=== PATIENT | female | born 1965 | race Caucasian/White ===

== ENCOUNTER 2019-11-19 10:52 | Outpatient (CLI) | payer OTHER, SELFPAY ==
[2019-11-19 11:09] LABS: Basophils Absolute Auto 0.03 K/mm3 (0.00-0.10); Basophils Percent Auto 0.4 % (0.0-1.0); Eosinophils Absolute Auto 0.24 K/mm3 (0.02-0.50); Eosinophils Percent Auto 3.5 % (1.0-6.0); Hematocrit 37.8 % (35.0-49.0); Hemoglobin 12.6 g/dL (12.0-15.0); Immature Granulocyte Absolute 0.03 K/mm3 (0.00-0.00); Immature Granulocyte Percent A 0.4 % (0.0-0.0); Lymphocytes Absolute Auto 2.38 K/mm3 (1.10-4.50); Lymphocytes Percent Auto 34.3 % (18.0-42.0); Mean Corpuscular HGB Conc 33.3 g/dL (32.0-36.0); Mean Corpuscular Hemoglobin 29.4 pg (27.0-31.0); Mean Corpuscular Volume 88.1 fL (78.0-102.0); Mean Platelet Volume 9.3 fl (9.2-11.8); Monocytes Absolute Auto 0.68 K/mm3 (0.10-0.90); Monocytes Percent Auto 9.8 % (2.0-11.0); Neutrophils Absolute Auto 3.6 K/mm3 (1.7-7.2); Neutrophils Percent Auto 51.6 % (50.0-70.0); Platelet Count Result 276 K/mm3 (150-420); Red Blood Count 4.29 M/mm3 (4.20-5.40); Red Cell Distribution Width 11.9 % (11.6-14.4); White Blood Count 6.9 K/mm3 (4.8-10.8)
[2019-11-19 12:55] LABS: Alanine Aminotransferase 17 U/L (14-59); Albumin Level 3.8 g/dL (3.4-5.0); Alkaline Phosphatase 106 U/L (46-116); Anion Gap 12.1 mmol/L (7-16); Aspartate Amino Transferase 17 U/L (15-37); Bilirubin,Total 0.2 mg/dL (0.00-1.00); Blood Urea Nitrogen 10 mg/dL (7-18); Calcium 9.5 mg/dL (8.5-10.1); Carbon Dioxide 30 mmol/L (21-32); Chloride 104 mmol/L (98-108); Cholesterol 204 mg/dL (0-200); Estimated Glomerular Filt Rate > 60; Glucose 91 mg/dL (70-99); HDL Direct 64 mg/dL (40-60); LDL Cholesterol Calculated 129 mg/dL (<130); Osmolality Calculated 293 mOsm/kg (285-295); Potassium 4.1 mmol/L (3.5-5.1); Sodium 142 mmol/L (136-145); Total Protein 7.4 g/dL (6.4-8.2); Triglycerides 56 mg/dL (0-150); Vitamin B12 539 pg/mL (193-986)
[2019-11-22 17:30] LABS: Vitamin D 25 Hydroxy 48 ng/mL (30-100)
== END 2019-11-19 10:53 | disposition home or self-care (01) ==
LOC: CHSLAB 10:58
DX: E53.8 Deficiency of other specified B group vitamins (principal); D55.9 Anemia due to enzyme disorder, unspecified; Z00.00 Encounter for general adult medical examination without abnormal findings
CPT/HCPCS: 36415; 80053; 80061; 82306; 82607; 84443; 85025

== ENCOUNTER 2022-01-21 16:42 | Emergency (ER) | payer OTHER, SELFPAY ==
[2022-01-21 16:49] VITALS: BP 136/81; PULSE 78; RESP 16; TEMP 36.8; O2SAT 98
[2022-01-21 16:55] VITALS: BP 136/81; PULSE 78; RESP 16; TEMP 36.8; O2SAT 98
--- NOTE | 2022-01-21 17:18 | ED.URI ---
HPI - URI/Sore Throat General Chief Complaint: Upper Respiratory Infection Stated Complaint: CHEST CONGESTION Time Seen by Provider: 01/21/22 17:09 Source: patient and RN notes reviewed Mode of arrival: ambulatory Limitations: no limitations History of Present Illness HPI Narrative: Patient presents today with a 1 week history of cough, chest congestion, shortness of breath with exertion. She reports she is having an asthma exacerbation. Denies any additional symptoms. Sputum has been clear to white. She has been using her nebulizer, Mucinex, Singulair, Yolis. Denies fever. MD elicited complaint: cough Related Data Home Medications Medication Instructions Recorded Confirmed fluticasone propion-salmeterol INHALATION 01/21/22 [Wixela Inhub] glatiramer [Copaxone] mg SUBCUT 01/21/22 modafinil mg 01/21/22 montelukast mg 01/21/22 Allergies Allergy/AdvReac Type Severity Reaction Status Date / Time hydrocodone AdvReac Severe N/V Verified 09/28/19 16:14 erythromycin base AdvReac Unknown DIARRHEA Verified 09/28/19 16:14 Review of Systems Review of Systems: CONSTITUTIONAL: Denies body aches, fever, chills, or sweats. EYES: Denies visual changes, redness, or discharge. ENT: Denies rhinorrhea, congestion, sore throat, or otalgia. CARDIOVASCULAR: Denies chest pain, palpitations, or edema. RESPIRATORY: + Cough, shortness of breath with exertion, chest congestion GASTROINTESTINAL: Denies abdominal pain, nausea, vomiting, or diarrhea. GENITOURINARY: Denies dysuria or hematuria. SKIN: Denies rash, itching, or wounds. MUSCULOSKELETAL: Denies back pain, joint pain, or myalgia. NEUROLOGIC: Denies headache, numbness, tingling, or weakness. PSYCH: Denies depression or anxiety. [facility] Past Medical History Medical History (Updated 01/21/22 @ 17:22 by Jenny Jacobo, WASH DRILLER, ) Asthma Multiple sclerosis Comments At time of signature, I have reviewed and agree with nursing past medical, surgical, social and family history unless otherwise noted. Please see nursing chart for further information. There is no relevant family history pertinent to the presenting complaint Exam Narrative: GENERAL: Well-appearing, well-nourished, and in no acute distress. HEAD: Normocephalic, atraumatic. EYES: EOMI. No redness or drainage. Conjunctivae normal. ENT: Mucous membranes pink and moist. NECK: Normal AROM. CHEST: No respiratory distress. Expiratory wheezes in the left upper and lower lobe, otherwise clear. HEART: Regular rate and rhythm. No murmur appreciated. Normal peripheral pulses. EXTREMITIES: Normal range of motion. No edema. SKIN: Warm, dry, no rash. Capillary refill normal. Normal skin turgor. NEURO: No focal deficits. Alert and oriented x3. Gait steady. PSYCH: Normal affect. No signs of depression or anxiety. Course Course Level of Care: Express Care Visit Vital Signs Vital signs: Vital Signs Temperature 98.2 F 01/21/22 16:49 Pulse Rate 78 01/21/22 16:49 Respiratory Rate 16 01/21/22 16:49 Blood Pressure 136/81 01/21/22 16:49 Pulse Oximetry 98 01/21/22 16:49 Temperature 98.2 F 01/21/22 16:55 Pulse Rate 78 01/21/22 16:55 Respiratory Rate 16 01/21/22 16:55 Blood Pressure 136/81 01/21/22 16:55 Pulse Oximetry 98 01/21/22 16:55 Reviewed. Pt has been instructed to follow up with her PCP regarding her elevated blood pressure today. MDM - URI/Sore Throat Differential Diagnosis Differential diagnosis: Likely upper respiratory infection, bronchitis and other (Asthma exacerbation, pneumonia) Critical Care Time Critical Care Time Critical Care Time: No Discharge Plan Discharge Clinical Impression: Asthma exacerbation Qualifiers: Asthma severity: unspecified severity Asthma persistence: unspecified Qualified Code(s): J45.901 - Unspecified asthma with (acute) exacerbation Patient Disposition: Home, Self-Care Condition: Stable Instructions: Asthma (DC) Addition
== END 2022-01-21 17:28 | disposition home or self-care (01) ==
PROVIDERS: Emergency Provider Nurse Practitioner; PCP Nurse Practitioner Family
DX: J45.901 Unspecified asthma with (acute) exacerbation (principal); G35 Multiple sclerosis
CPT/HCPCS: 99213; G0463

== ENCOUNTER 2022-10-03 00:27 | Day surgery (SDC) | payer OTHER, SELFPAY ==
[2022-09-25 08:12] VITALS: BMI 31.4
[2022-10-03 07:41] VITALS: BP 135/74; PULSE 77; RESP 16; TEMP 36.2; O2SAT 98
[2022-10-03] MEDS: LACTATED RINGERS 1,000 ML 150 ML IV CONT (07:45)
--- NOTE | 2022-10-03 07:59 | PM.HPGS ---
History of Present Illness History of Present Illness Consent: Risks, benefits, and alternatives have been discussed and questions answered. Patient agrees to proceed with procedure. Chief complaint: neoplasm screening and hx of colon polyps Narrative: Edith Calloway is a 56 year old female Presents for screening colonoscopy. Patient's current weight appetite and bowel movements are normal. Patient denies abdominal pain. She has had no bleeding. Previous colonoscopy 2016 revealed a benign hyperplastic colon polyp. Patient presents today for neoplasia screening. Patient's grandfather apparently had colon cancer. There are no first-degree relatives with polyps or cancer. Review of Systems Review of Systems: Review of systems noncontributory. [facility] Past Medical History Medical History (Updated 10/03/22 @ 08:00 by Jon Burroughs MD) Asthma Multiple sclerosis Social History Social History Smoking status: Never smoker Alcohol intake: never Substance use type: does not use Living arrangements: with family Spiritual care concerns: No Meds Home Medications and Allergies Home Medications Medication Instructions Recorded Confirmed Type fluticasone 250 mcg-salmeterol 50 1 inh inhalation BID 01/21/22 10/03/22 History mcg/dose blistr powdr for inhalation (Wixela Inhub) glatiramer 40 mg/mL subcutaneous 40 mg subcut 3XW 01/21/22 10/03/22 History syringe (Copaxone) modafinil 200 mg tablet 200 mg PO BID 01/21/22 10/03/22 History montelukast 10 mg tablet 10 mg PO DAILY 01/21/22 10/03/22 History fexofenadine 180 mg tablet 180 mg PO DAILY 09/25/22 10/03/22 History ropinirole 0.25 mg tablet 0.25 mg PO HS PRN other 09/25/22 10/03/22 History Allergies Allergy/AdvReac Type Severity Reaction Status Date / Time hydrocodone AdvReac Severe N/V Verified 10/03/22 07:40 erythromycin base AdvReac Unknown DIARRHEA Verified 10/03/22 07:40 Vital Signs Vital Signs - 24 hr 10/03/22 07:41 Temperature 97.1 F L Pulse Rate 77 Respiratory Rate 16 Blood Pressure 135/74 Pulse Oximetry 98 Oxygen Delivery Room Air Exam Narrative: Physical exam reveals patient to be alert. Vital signs stable. HEENT exam is unremarkable. Patient is anicteric. Lungs are clear to auscultation and percussion. Heart is without murmur or extra sounds. Abdomen bowel sounds are present soft nontender with no organomegaly. Digital external rectal exam is normal. Assessment and Plan Assessment and plan (1) Encounter for screening colonoscopy: Code(s): Z12.11 - Encounter for screening for malignant neoplasm of colon Status: Acute Assessment and Plan: Patient presents today for screening colonoscopy. Appears to be at average risk for colon polyps. Further recommendations may be given after endoscopy.
--- NOTE | 2022-10-03 08:16 | WPDANESEPPF ---
Anes - Initial Pre Proc Eval Procedure: Operation Date: 10/03/22 08:30 Proposed Procedures p Screening Colonoscopy - Jon Burroughs MD Date/Time: 10/03/22 08:16 Surgeon: Jon Burroughs MD Pre Op Diagnosis: neoplasm screening and hx of colon polyps Patient Data Age: 56 Gender: F Height: 1.68 m Weight: 91.1 kg Last Vital Signs Temp 97.1 F L 10/03/22 07:41 Pulse 77 10/03/22 07:41 Resp 16 10/03/22 07:41 BP 135/74 10/03/22 07:41 Pulse Ox 98 10/03/22 07:41 O2 Del Method Room Air 10/03/22 07:41 Allergies Allergy/AdvReac Type Severity Reaction Status Date / Time hydrocodone AdvReac Severe N/V Verified 10/03/22 07:40 erythromycin base AdvReac Unknown DIARRHEA Verified 10/03/22 07:40 Home Medications Medication Instructions Recorded Confirmed Type fluticasone 250 mcg-salmeterol 50 1 inh inhalation BID 01/21/22 10/03/22 History mcg/dose blistr powdr for inhalation (Wixela Inhub) glatiramer 40 mg/mL subcutaneous 40 mg subcut 3XW 01/21/22 10/03/22 History syringe (Copaxone) modafinil 200 mg tablet 200 mg PO BID 01/21/22 10/03/22 History montelukast 10 mg tablet 10 mg PO DAILY 01/21/22 10/03/22 History fexofenadine 180 mg tablet 180 mg PO DAILY 09/25/22 10/03/22 History ropinirole 0.25 mg tablet 0.25 mg PO HS PRN other 09/25/22 10/03/22 History Patient hx anesthesia problems: none Family hx anesthesia problems: none Results Review: All pre-operative results and documents have been reviewed as part of the pre-operative evaluation. [facility] Past Medical History Medical History (Updated 10/03/22 @ 08:00 by Jon Burroughs MD) Asthma Multiple sclerosis Social History Social History Smoking status: Never smoker Alcohol intake: never Substance use type: does not use Living arrangements: with family Spiritual care concerns: No Anes - Eval Final PreProcedure Day of Procedure 10/03/22 08:16 Patient weight: obese Heart: regular rate and rhythm Lungs: clear to auscultation Airway: Mallampati scale class II Neurological: alert and oriented Last oral intake: >/= 8 hours ASA classification: III Emergent: no Anesthetic plan: proceed Anesthesia type and monitoring: general GIVS and standard monitoring Results Review: All pre-operative results and documents have been reviewed as part of the pre-operative evaluation. Informed Consent: The patient's anesthetic plan and its attendant risks and benefits were discussed with the patient/family/POA. Questions were solicited and answers provided to the satisfaction of the patient/family/POA.
[2022-10-03 08:50] VITALS: BP 125/76; PULSE 76; RESP 21; O2SAT 97
[2022-10-03 09:01] VITALS: BP 117/81; PULSE 74; RESP 16; O2SAT 100
== END 2022-10-03 09:12 | disposition home or self-care (01) ==
PROVIDERS: PCP Nurse Practitioner Family; Visit Provider Internal Medicine Gastroenterology
PROC: 0DJD8ZZ Inspection of Lower Intestinal Tract, Via Natural or Artificial Opening Endoscopic (ICD-10-PCS; CPT 45378; principal; 2022-10-03 08:30)
DX: Z12.11 Encounter for screening for malignant neoplasm of colon (principal); Z86.010 Personal history of colon polyps; J45.909 Unspecified asthma, uncomplicated; G35 Multiple sclerosis; K64.8 Other hemorrhoids
CPT/HCPCS: 45378; J2704; J7120

== ENCOUNTER 2022-10-18 07:34 | Outpatient (CLI) | payer OTHER, SELFPAY ==
--- NOTE | ~2022-10-18 | MM_ITS ---
EXAMINATION: MM screening javed BI w lee HISTORY: Screening mammogram TECHNIQUE: Craniocaudal and mediolateral oblique 3-D tomosynthesis images were obtained and synthetic 2-D images were generated. CAD analysis was submitted and interpreted. COMPARISON: 06/05/2016 bilateral screening mammogram BREAST PARENCHYMAL COMPOSITION: There are scattered areas of fibroglandular density. FINDINGS: There is a new subtle cluster of grouped microcalcifications in the posterior upper .outer left breast. Diagnostic left mammogram with magnification views and targeted left breast ultrasound a re recommended. Otherwise there is no evidence of suspicious mass, calcification, or architectural distortion to sugg est malignancy in either breast. There has been no other suspicious interval change. IMPRESSION: 1. Subtle new grouped microcalcifications in posterior upper outer left breast 2. Diagnostic left mammogram with magnification views and targeted left breast ultrasound are recomme nded BI-RADS Category 0: Incomplete: Needs additional imaging evaluation. Reviewed, dictated and finalized at location A. CLOSER MECHANIC IMPRESSION: 1. Subtle new grouped microcalcifications in posterior upper outer left breast 2. Diagnostic left mammogram with magnification views and targeted left breast ultrasound are recommended BI-RADS Category 0: Incomplete: Needs additional imaging evaluation.
[2022-10-18 08:48] LABS: Basophils Percent Auto 0.3 % (0.2-1.2); Eosinophils Absolute Auto 0.3 K/mm3 (0-0.3); Eosinophils Percent Auto 4.8 % (0-4.4); Hematocrit 38.5 % (37.0-47.0); Immature Granulocyte Absolute 0.05 K/mm3 (0.00-0.031); Immature Granulocyte Percent A 0.7 % (0-0.5); Lymphocytes Absolute Auto 2.18 K/mm3 (0.9-3.2); Lymphocytes Percent Auto 32.5 % (18.3-44.2); Mean Corpuscular HGB Conc 31.2 g/dl (32-36); Mean Corpuscular Hemoglobin 28.4 pg (26-34); Mean Corpuscular Volume 91.2 fl (80-100); Mean Platelet Volume 9.2 fl (7.4-10.4); Monocytes Absolute Auto 0.7 K/mm3 (0.1-0.6); Monocytes Percent Auto 10.6 % (2.6-8.5); Neutrophils Absolute Auto 3.4 K/mm3 (1.3-6.7); Neutrophils Percent Auto 51.1 % (45.5-73.1); Platelet Count Result 246 k/mm3 (150-375); Red Blood Count 4.22 M/mm3 (4.2-5.4); Red Cell Distribution Width 12.3 % (11.5-14.5); White Blood Count 6.7 K/mm3 (4.5-10.0)
[2022-10-18 09:02] LABS: Alanine Aminotransferase 15 U/L (6-35); Albumin Level 4.2 g/dL (3.5-5.1); Alkaline Phosphatase 114 U/L (38-126); Anion Gap 6 mmol/L (8-16); Aspartate Amino Transferase 26 U/L (14-36); Bilirubin,Total 0.3 mg/dL (0.2-1.3); Blood Urea Nitrogen 17 mg/dL (7-17); Calcium 8.7 mg/dL (8.4-10.2); Carbon Dioxide 31 mmol/L (22-30); Chloride 103 mmol/L (98-107); Cholesterol 220 mg/dL (0-200); Estimated Glomerular Filt Rate > 60; Glucose 103 mg/dL (65-110); HDL Direct 66 mg/dL; Potassium 3.9 mmol/L (3.4-5.0); Sodium 140 mmol/L (137-145); Triglycerides 65 mg/dL (<150)
[2022-10-18 09:13] LABS: LDL Cholesterol Direct 109 mg/dL
== END 2022-10-18 07:35 | disposition home or self-care (01) ==
PROVIDERS: PCP Nurse Practitioner Family; Visit Provider Nurse Practitioner Family
DX: Z12.31 Encounter for screening mammogram for malignant neoplasm of breast (principal); Z13.220 Encounter for screening for lipoid disorders; Z00.00 Encounter for general adult medical examination without abnormal findings; Z13.0 Encounter for screening for diseases of the blood and blood-forming organs and certain disorders involving the immune mechanism; E53.8 Deficiency of other specified B group vitamins; R92.8 Other abnormal and inconclusive findings on diagnostic imaging of breast
CPT/HCPCS: 36415; 77063; 77067; 80053; 80061; 82607; 85025

== ENCOUNTER 2022-12-04 11:33 | Outpatient (CLI) | payer OTHER, SELFPAY ==
--- NOTE | ~2022-12-04 | MMUS_ITS ---
EXAMINATION: MM diagnostic javed LT w lee, US breast LT limited HISTORY: Solitary grouped microcalcifications in posterior upper outer left breast on 10/18/2022 scre ening mammogram TECHNIQUE: Additional 3-D tomosynthesis images of the left breast were performed and synthetic 2-D im ages were generated. CAD analysis was submitted and interpreted. High resolution upper outer quadrant left breast ultrasound was performed. COMPARISON: 10/18/2022 bilateral screening mammogram BREAST PARENCHYMAL COMPOSITION: There are scattered areas of fibroglandular density. FINDINGS: MAMMOGRAPHIC FINDINGS: Scattered microcalcifications are noted, without any definite suspicious malignant features. 6 month follow-up diagnostic left mammogram with magnification views is recommended. ULTRASOUND: . At the subareolar area at 3:00 there is an irregular hypoechoic mass with angular margins and antip arallel configuration, measuring up to 7.8 x 4.5 x 6.1 mm. No internal vascularity or posterior shado wing is noted. However, due to the irregular angular margins and antiparallel orientation, ultrasound -guided biopsy is indicated. No other suspicious abnormality is detected in the upper outer quadrant IMPRESSION: 1. Suspicious irregular angular hypoechoic antiparallel up to 7.8 mm mass in subareolar 3:00 location 2. Ultrasound-guided biopsy is recommended at 3:00 subareolar lesion 3. Probably benign microcalcifications 4. 6 month diagnostic left mammogram follow up is recommended. BI-RADS category 4, suspicious findings. Dr. Pierce telephoned the report and ultrasound-guided biopsy recommendation of the 3:00 left subareola r lesion, as well as recommendation for 6 month diagnostic left mammogram follow up with magnificatio n views, on December 04, 2022 at 1500 hours to SERENA Mon[place] Reviewed, dictated and finalized at location A. OPERATOR IMPRESSION: 1. Suspicious irregular angular hypoechoic antiparallel up to 7.8 mm mass in kwan bareolar 3:00 location 2. Ultrasound-guided biopsy is recommended at 3:00 subareolar lesion 3. Probably benign microcalcifications 4. 6 month diagnostic left mammogram follow up is recommended. BI-RADS category 4, suspicious findings. Dr. Pierce telephoned the report and ultrasound-guided biopsy recommendation of t he 3:00 left subareolar lesion, as well as recommendation for 6 month diagnosti c left mammogram follow up with magnification views, on December 04, 2022 at 15 00 hours to SERENA Monaco IMPRESSION: 1. Suspicious irregular angular hypoechoic antiparallel up to 7.8 mm mass in kwan bareolar 3:00 location 2. Ultrasound-guided biopsy is recommended at 3:00 subareolar lesion 3. Probably benign microcalcifications 4. 6 month diagnostic left mammogram follow up is recommended. BI-RADS category 4, suspicious findings. Dr. Pierce telephoned the report and ultrasound-guided biopsy recommendation of t he 3:00 left subareolar lesion, as well as recommendation for 6 month diagnosti c left mammogram follow up with magnification views, on December 04, 2022 at 15 00 hours to Jacinda Yoli
== END 2022-12-04 11:34 | disposition home or self-care (01) ==
PROVIDERS: PCP Nurse Practitioner Family; Visit Provider Nurse Practitioner Family
DX: N63.42 Unspecified lump in left breast, subareolar (principal)
CPT/HCPCS: 76642; 77061; 77065; G0279

== ENCOUNTER 2023-05-30 07:33 | Outpatient (CLI) | payer OTHER, SELFPAY ==
--- NOTE | ~2023-05-30 | MR_ITS ---
EXAMINATION: MR cervical spine wo/w con DATE: 05/30/2023 09:15 INDICATION: Multiple sclerosis. TECHNIQUE: Magnetic resonance imaging (MRI) of the cervical spine was performed without and with 15 m L MultiHance intravenous contrast. COMPARISON: Cervical spine MRI 04/26/2019 FINDINGS: There is mild kyphosis of cervical spine. Vertebral body heights are normal. There is mildl y decreased disc height at C3-C4, moderately decreased disc height at C4-C5 and C5-C6, and mildly dec reased disc height at C6-C7. The spinal cord signal intensity is normal. The following disc levels ar e specifically discussed: C2-C3: The disc does not extend beyond the endplate margin. There is no uncovertebral joint osteoarth ritis. There is moderate right and mild left facet joint osteoarthritis. There is no neural foraminal stenosis. There is no central canal stenosis. C3-C4: The disc does not extend beyond the endplate margin. There is moderate right and mild left unc overtebral joint osteoarthritis. There is mild right and severe left facet joint osteoarthritis. Ther e is mild bilateral neural foraminal stenosis. There is no central canal stenosis. C4-C5: The disc is bulging. There is severe bilateral uncovertebral joint osteoarthritis. There is mi ld bilateral facet joint osteoarthritis. There is mild bilateral neural foraminal stenosis. There is mild central canal stenosis. C5-C6: The disc is bulging. There is severe bilateral uncovertebral joint osteoarthritis. There is no facet joint osteoarthritis. There is mild bilateral neural foraminal stenosis. There is no central c anal stenosis. C6-C7: The disc is bulging. There is moderate bilateral uncovertebral joint osteoarthritis. There is mild left facet joint osteoarthritis. There is mild left neural foraminal stenosis. There is no centr al canal stenosis. C7-T1: The disc does not extend beyond the endplate margin. There is no uncovertebral joint osteoarth ritis. There is mild right and severe left facet joint osteoarthritis. There is mild left neural fora ana stenosis. There is no central canal stenosis. IMPRESSION: 1. Normal spinal cord. 2. Moderate cervical spondylosis. Reviewed, dictated and finalized at location E.
--- NOTE | ~2023-05-30 | MR_ITS ---
EXAMINATION: MR brain/brain stem wo/w con DATE: 05/30/2023 09:15 INDICATION: Multiple sclerosis. TECHNIQUE: Magnetic resonance imaging (MRI) of the brain and brainstem was performed without and with 15 mL MultiHance intravenous contrast. COMPARISON: Brain MRI 04/26/2019 FINDINGS: There are changes of left-sided craniotomy. There is no intracranial hemorrhage, acute infa rction, or abnormal intracranial mass lesion. The ventricles are normal in size. The orbits are ramona l. The paranasal sinuses are clear. The mastoid air cells are normal. IMPRESSION: 1. Normal brain. Reviewed, dictated and finalized at location E. IMPRESSION: 1. Normal brain.
== END 2023-05-30 07:34 | disposition home or self-care (01) ==
PROVIDERS: PCP Nurse Practitioner Family; Visit Provider Psychiatry & Neurology Neurology
DX: G35 Multiple sclerosis (principal); M47.892 Other spondylosis, cervical region
CPT/HCPCS: 70553; 72156; A9577

== ENCOUNTER 2023-11-06 17:04 | Emergency (ER) | payer OTHER, SELFPAY ==
[2023-11-06 17:09] VITALS: BP 154/82; PULSE 66; RESP 16; TEMP 36.6; O2SAT 100
--- NOTE | 2023-11-06 17:56 | ED.URI ---
HPI - URI/Sore Throat General Chief Complaint: Upper Respiratory Infection Stated Complaint: Asthma flare up Time Seen by Provider: 11/06/23 17:40 Source: patient, RN notes reviewed and old records reviewed Mode of arrival: ambulatory Limitations: no limitations History of Present Illness HPI Narrative: 58 year old female who presents to [facility] care with complaints of one week duration of increased cough with wheezing and congestion. Patient reports that she had COVID the Thursday before Doni and doesn't feel she has fully recovered. Patient reports that she has had congestion, cough, and wheezing, is using her inhalers, of Albuterol and Atrovent ,Yolis, and Singulair without resolution of symptoms, feels her asthma has flared. Patient states no known fevers chills or sweats. MD elicited complaint: cough and other (wheezing) Pertinent past history: asthma Onset (ago): week(s) (1) Able to tolerate fluids by mouth: Yes Treatments prior to arrival: other (inhalers) Related Data Home Medications Medication Instructions Recorded Confirmed fluticasone 250 mcg-salmeterol 50 1 inh inhalation BID 01/21/22 10/03/22 mcg/dose blistr powdr for inhalation (Wixela Inhub) glatiramer 40 mg/mL subcutaneous 40 mg subcut 3XW 01/21/22 10/03/22 syringe (Copaxone) modafinil 200 mg tablet 200 mg PO BID 01/21/22 10/03/22 montelukast 10 mg tablet 10 mg PO DAILY 01/21/22 10/03/22 fexofenadine 180 mg tablet 180 mg PO DAILY 09/25/22 10/03/22 albuterol 11/06/23 Allergies Allergy/AdvReac Type Severity Reaction Status Date / Time hydrocodone AdvReac Severe N/V Verified 11/06/23 17:20 erythromycin base AdvReac Unknown DIARRHEA Verified 11/06/23 17:20 Review of Systems Review of Systems: CONSTITUTIONAL: Denies malaise, chills, sweats, or fever. EYES: Denies visual changes, redness, or discharge. ENT: Reports rhinorrhea, congestion, no sinus pain, otalgia and no sore throat. CARDIOVASCULAR: Denies chest pain, palpitations, or edema. RESPIRATORY: Reports cough.? Denies acute dyspnea.positive for wheezing GASTROINTESTINAL: Denies abdominal pain, nausea, vomiting, diarrhea SKIN: Denies rash or itching. MUSCULOSKELETAL: Denies myalgia. NEUROLOGIC: Denies headache. All systems reviewed & are unremarkable except as noted in HPI and below PMFSH Past Medical History Medical History (Updated 11/06/23 @ 18:40 by Lupe Anton NP) Asthma Meningioma, cerebral removal benign 2014 [place] Multiple sclerosis Surgical History Surgical History (Updated 11/06/23 @ 18:44 by Lupe Anton NP) History of endometrial ablation Hx of appendectomy Social History Social History Smoking status: Never smoker Alcohol intake: never Substance use type: does not use Living arrangements: with family Spiritual care concerns: No Comments At time of signature, agree with nursing past medical, surgical, social and family history. There is no relevant family history pertinent to the presenting complaint Exam Narrative: GENERAL: Well-appearing, well-nourished, and in no acute distress. HEAD: Normocephalic EYES: PERRLA, conjunctivae clear ENT: Nares clear, turbinates edematous and erythematous, clear discharge. Mucous membranes moist. TM pearly sexton with dull light reflex bilaterally; no tragal tenderness. Oropharynx erythematous without lesions. Tonsils not enlarged and without exudate, no drooling, no hoarseness, no trismus, uvula midline. NECK: Supple. No lymphadenopathy CHEST: Scattered wheezing on auscultation, breath sounds equal.Scattered wheezing,no rhonchi, rales, or stridor. No respiratory distress, speaks in full sentences.SAO2 100% on room air HEART: Regular rate and rhythm. No murmur heard. SKIN: Warm, dry, no rash. NEURO: Alert and oriented x3. PSYCH: Normal mood and affect Course Course Emergency Course: Patient is awar
== END 2023-11-06 18:20 | disposition home or self-care (01) ==
PROVIDERS: Emergency Provider Registered Nurse; PCP Nurse Practitioner Family
DX: J45.41 Moderate persistent asthma with (acute) exacerbation (principal); G35 Multiple sclerosis
CPT/HCPCS: 99213; G0463

== ENCOUNTER 2025-01-11 07:07 | Outpatient (CLI) | payer OTHER, SELFPAY ==
--- OUTSIDE RECORDS SUMMARY | 2025-01-11 07:11 | XMS_ITS | Encounter Summary ---
Author Organization [facility] Address [address] [place] [address] Care Team Providers Care Electric Razor Mechanic Name Role Phone Jefry Mak MD Primary Care Provider [phone] Encounter Details Date Type Department Care Team (Late st Contact Info) Description 06/20/2005 Outpatient Historical [facility] Internal Medicine [address] [address] Jefry Mak MD [address] [place] [phone] Social History Tobacco Use Types Packs/Day Years Used Date Smoking Tobacco: Never Assessed Comments Unknown Sex and Gender Information Value Date Recorded Sex Assigned at Not on file Legal Sex Female 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 Gender Identity Not on file Sexual Orientation Not on file documented as of this encounter Last Filed Vital Signs Vital Sign Reading Time Taken Comments Blood Pressure 130/70 06/20/2005 2:15 PM CDT Pulse - - Temperature - - Respiratory Rate - - Oxygen Saturation - - Inhaled Oxygen Concentration - - Weight 79.4 kg (175 lb) 06/20/2005 2:15 PM CDT Height - - Body Mass Index - - documented in this encounter Plan of Treatment Not on file documented as of this encounter Visit Diagnoses Not on filedocumented in this encounter Care Teams Electric Razor Mechanic Relationship Specialty Start Date End Date Jefyr Mak MD PCP - General 08/02/08 documented as of this encounter
--- OUTSIDE RECORDS SUMMARY | 2025-01-11 07:11 | XMS_ITS | Encounter Summary ---
Author Organization [facility] Address 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
--- OUTSIDE RECORDS SUMMARY | 2025-01-11 07:11 | XMS_ITS | Encounter Summary ---
Author Organization [facility] Address [address] [place] [address] Care Team Providers Care Sod Cutter Name Role Phone Jefry Mak MD Primary Care Provider [phone] Encounter Details Date Type Department Care Team (Late st Contact Info) Description 07/16/2005 Outpatient Historical [facility] Internal Medicine [address] [address] Jefry Mak MD [address] [place] [phone] Social History Tobacco Use Types Packs/Day Years Used Date Smoking Tobacco: Never Assessed Comments Unknown Sex and Gender Information Value Date Recorded Sex Assigned at Not on file Legal Sex Female 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[address]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 Gender Identity Not on file Sexual Orientation Not on file documented as of this encounter Last Filed Vital Signs Vital Sign Reading Time Taken Comments Blood Pressure 110/70 07/16/2005 9:15 AM CDT Pulse - - Temperature - - Respiratory Rate - - Oxygen Saturation - - Inhaled Oxygen Concentration - - Weight 78 kg (172 lb) 07/16/2005 9:15 AM CDT Height - - Body Mass Index - - documented in this encounter Plan of Treatment Not on file documented as of this encounter Visit Diagnoses Not on filedocumented in this encounter Care Teams Sod Cutter Relationship Specialty Start Date End Date Jefry Mak MD PCP - General 10/15/08 documented as of this encounter
--- OUTSIDE RECORDS SUMMARY | 2025-01-11 07:11 | XMS_ITS | Encounter Summary ---
Author Organization [facility] Address 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 Gender Identity Not on file Sexual Orientation Not on file documented as of this encounter Last Filed Vital Signs Vital Sign Reading Time Taken Comments Blood Pressure 130/70 01/27/2006 1:30 PM CDT Pulse - - Temperature 36.3 C (97.4 F) 01/27/2006 1:30 PM CDT Respiratory Rate - - Oxygen Saturation - - Inhaled Oxygen Concentration - - Weight - - Height - - Body Mass Index - - documented in this encounter Plan of Treatment Not on file documented as of this encounter Visit Diagnoses Not on filedocumented in this encounter Care Teams Care Center Manager Relationship Specialty Start Date End Date Jefry Mak MD PCP - General 08/02/08 documented as of this encounter
--- OUTSIDE RECORDS SUMMARY | 2025-01-11 07:11 | XMS_ITS | Encounter Summary ---
Author Organization [facility] Address 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 HISTORY: HISTORY: 340-MULTIPLE SCLEROSIS The patient's multiple sclerosis remains stable. 461.9-SINUSITIS UNSPECIFIED congestion cough, drainage PHYSICAL EXAMINATION: EARS, NOSE, MOUTH AND THROAT: EARS: EFFUSION PRESENT BILATERALLY, TYMPANIC MEMBRANES INFLAMED BILATERALLY. ORAL: OROPHARYNX ERYTHEMATOUS. NECK/THYROID: Trachea midline. No thyroid enlargement, tenderness, or mass. No supraclavicular or cervical adenopathy. RESPIRATORY: Clear to auscultation and percussion. Normal respiratory effort. CARDIOVASCULAR: CARDIAC: Regular rhythm. No murmurs, rubs, or gallops. EDEMA/VARICOSITIES OF EXTREMITIES: No edema or varicosities. ASSESSMENT/PLAN: 340-MULTIPLE SCLEROSIS has been stable 461.9-SINUSITIS UNSPECIFIED cont allergy meds, pnvx at fu MEDICATIONS: LEVAQUIN ORAL TABLET 500 MG, 1 Every Day, 10 Dispensed, 1 Fills, 10 Duration/Days Supply, status: CONTINUED, 01/27/2006. RETURN VISIT : Instructed to call if not improving. Electronically Signed by: Jefry Mak MD on Friday, January 27, 2006 documented in this encounter Plan of Treatment Not on file documented as of this encounter Visit Diagnoses Not on filedocumented in this encounter Care Teams Mortgage Loan Processing Clerk Relationship Specialty Start Date End Date Jefry Mak MD PCP - General 08/02/08 documented as of this encounter
--- OUTSIDE RECORDS SUMMARY | 2025-01-11 07:11 | XMS_ITS | Encounter Summary ---
Author Organization [facility] Address [address] [place] [address] Care Team Providers Care Periodicals Library Assistant Name Role Phone Jefry Mak MD Primary Care Provider [phone] Encounter Details Date Type Department Care Team (Late st Contact Info) Description 06/24/[address] 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 Gender Identity Not on file Sexual Orientation Not on file documented as of this encounter Last Filed Vital Signs Vital Sign Reading Time Taken Comments Blood Pressure 130/70 06/24/2005 3:45 PM CDT Pulse - - Temperature 37 C (98.6 F) 06/24/2005 3:45 PM CDT Respiratory Rate - - Oxygen Saturation - - Inhaled Oxygen Concentration - - Weight - - Height - - Body Mass Index - - documented in this encounter Plan of Treatment Not on file documented as of this encounter Visit Diagnoses Not on filedocumented in this encounter Care Teams Periodicals Library Assistant Relationship Specialty Start Date End Date Jefry Mak MD PCP - General 08/02/08 documented as of this encounter
--- OUTSIDE RECORDS SUMMARY | 2025-01-11 07:12 | XMS_ITS | Encounter Summary ---
Author Organization [facility] Address 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 Gender Identity Not on file Sexual Orientation Not on file documented as of this encounter Last Filed Vital Signs Vital Sign Reading Time Taken Comments Blood Pressure 118/70 05/12/2005 1:30 PM CDT Pulse - - Temperature - - Respiratory Rate - - Oxygen Saturation - - Inhaled Oxygen Concentration - - Weight 78 kg (172 lb) 05/12/2005 1:30 PM CDT Height - - Body Mass Index - - documented in this encounter Plan of Treatment Not on file documented as of this encounter Visit Diagnoses Not on filedocumented in this encounter Care Teams Dining Room Host/Hostess Relationship Specialty Start Date End Date Jefry Mak MD PCP - General 10/15/08 documented as of this encounter
--- OUTSIDE RECORDS SUMMARY | 2025-01-11 07:12 | XMS_ITS | Encounter Summary ---
Author Organization [facility] Healthcare Address [address] [place] [address] Care Team Providers Care Conciliator Name Role Phone Brenda Hodges MD Primary Care Provider Reason for Visit * Diagnostic Imaging (Routine) - Closed Specialty Diagnoses / Procedures Referred By Contac t Referred To Contact Procedures Breast Imaging Screening Outside Reference Nellie Mendoza NP Phone: tel: fax: Referral ID Status Reason Start Date Expiration Date Visits Re quested Visits Authorized [id number] Closed 12/16/2022 01/15/2024 1 1 Encounter Details Date Type Department Care Team (Late st Contact Info) Description 12/16/2012 Hospital Encounter [facility] Radiology [facility] [address] [place] [phone] Social History Tobacco Use Types Packs/Day Years Used Date Smoking Tobacco: Never Smokeless Tobacco: Never Alcohol Use Standard Drinks/Week Comments No 0 (1 standard drink = 0.6 oz pur e alcohol) PHQ-2 Answer Date Recorded PHQ-2 Total Score (If total score is 3 or more points, staff should administer the PHQ-9) 0 08/31/2024 Comments Unknown Sex and Gender Information Value Date Recorded Sex Assigned at Not on file Legal Sex Female 4:52 PM DIGESTER CAPPER Gender Identity Not on file Sexual Orientation Not on file documented as of this encounter Plan of Treatment Not on file documented as of this encounter Procedures Procedure Name Priority Date/Time Associated Diagnosis Comments BREAST IMAGING MG SCREENING OUTSIDE REFERENCE Schedule Routine, Read Routine (OP Routine) 12/16/2012 12:00 AM DIGESTER CAPPER documented in this encounter Results * Breast Imaging Screening Outside Reference (12/16/2012 12:00 AM DIGESTER CAPPER) Impressions [facility] - 12/16/2022 4:09 PM DIGESTER CAPPER These images are for Reference purposes only and have not been reviewed by [facility]. There will be no report generated by a [facility] Radiologist. Narrative [facility] - 12/16/2022 4:09 PM DIGESTER CAPPER EXAMINATION: Images For Reference Purposes Only us Nellie Mendoza REHABILITATION ATTENDANT IMG MAMMO PROCEDURES Final Re sult [facility] documented in this encounter Visit Diagnoses Not on filedocumented in this encounter Care Teams Conciliator Relationship Specialty Start Date End Date Brenda Hodges MD PCP - General 07/16/11 06/01/16 documented as of this encounter
--- OUTSIDE RECORDS SUMMARY | 2025-01-11 07:12 | XMS_ITS | Encounter Summary ---
Author Organization [facility] Address 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 sinusitis, MS HISTORY: HISTORY: 340-MULTIPLE SCLEROSIS The patient's multiple sclerosis remains stable. No complications noted fromthe medication presently being used.qu of inc brain lesion 461.9-SINUSITIS UNSPECIFIED The patient's acute sinusitis has not changed. 780.79-FATIGUE The patient's malaise and fatigue have worsened. 493.90-ASTHMA UNSPECIFIED No complications noted from the medication presently being used. The patient has a diminished exercise tolerance. 783.1-ABNORMAL WEIGHT GAIN worse, pt very concerned 784.0-HEADACHE intermittently recent ROS: GENERAL: DECREASED ENERGY LEVEL. PAST MEDICAL HISTORY: reviewed, SOCIAL HISTORY: works PT TOBACCO USE: Has no significant smoking history. ALCOHOL: Does not give any significant history of alcohol usage. PHYSICAL EXAMINATION: CONSTITUTIONAL: GENERAL APPEARANCE: Healthy appearing patient in no distress. EYES: PUPILS: Pupils equal and normally reactive to light and accommodation. EARS, NOSE, MOUTH AND THROAT: EARS: Tympanic membranes shiny without retraction. Canals unremarkable. Hearing grossly normal. ORAL: Inspection of gums, lips, palate, and teeth normal. No scars, lesions, or masses. Oral mucosaunremarkable with non-inflamed posterior pharynx. NECK/THYROID: Trachea midline. No thyroid enlargement, tenderness, or mass. No supraclavicular or cervical adenopathy. RESPIRATORY: Clear to auscultation and percussion. Normal respiratory effort. CARDIOVASCULAR: CARDIAC: Regular rhythm. No murmurs, rubs, or gallops. ARTERIAL: No aortic bruits. EDEMA/VARICOSITIES OF EXTREMITIES: No edema or varicosities. GASTROINTESTINAL: ABDOMEN: Soft, non-tender, without masses. Bowel sounds active. LIVER/SPLEEN/KIDNEY: No hepatosplenomegaly, tenderness or nodularity. Kidneys not palpable. SKIN: SKIN: Warm, dry, no diaphoresis, no significant lesions, irritation, rashes or ulcers. No induration, obvious subcutaneous nodules or tightening. ASSESSMENT/PLAN: 340-MULTIPLE SCLEROSIS cont med 461.9-SINUSITIS UNSPECIFIED stable 493.90-ASTHMA UNSPECIFIED inc rx MEDICATIONS: COMBIVENT INHALATION AEROSOL 103-18 MCG/ACT, 2 Four Times A Day, As Needed, 3 Dispensed, 3 Fills, status: NEW PRESCRIPTION, 11/12/2006. ADVAIR DISKUS INHALATION MISCELLANEOUS 250-50 MCG/DOSE, 1 Two Times A Day, 3 Fills, 30 Duration/Days Supply, status: NEW PRESCRIPTION, 11/12/2006. LAB ORDERS: Order number: [id number] Test Ordered: INJ-PNEUMOVAX [id number] 784.0-HEADACHE discussed topamax, reassess 783.1-ABNORMAL WEIGHT GAIN try med discussed risks of med at length MEDICATIONS: PHENTERMINE HCL ORAL CAPSULE CONVENTIONAL 37.5 MG, 1 Every Day, 30 Dispensed, 1 Fills, status: NEW PRESCRIPTION, 11/12/2006. LAB ORDERS: Order number: [id number] Test Ordered: CBC (INCLUDES DIFF/PLT) 6399 Order number: [id number] Test Ordered: TSH 899 Order number: [id number] Test Ordered: LIPID PANEL 7600 Order number: [id number] Test Ordered: COMPREHENSIVE METABOLIC PANEL W/ GLOMERULAR FILTRATION RATE, ESTIMATED (EGFR) [id number] RETURN VISIT : Patient instructed to return in 2 months. Electronically Signed by: Jefry Mak MD on October * Jefry Mak MD - 03/14/2008 1:33 PM CDT WHO TOOK THE CALL: Jefry Mak M TIME:05:56 pm see office note advise pt to have lab test herbtj 11/13/06 03:47 pm STAFF FOLLOW UP: . lmtcb tj spoke to pt. Patient said she had additional blood work done in September. She will fax those results here. If you need anything different drawn, just let her know. jrf OK documented in this encounter Plan of Treatment Not on file documented as of this encounter Visit Diagnoses Not on filedocumented in this encounter Care Teams Illuminating Engineer Relationship Specialty Start Date End Date Jefry Mak MD PCP - General 08/02/08 documented as of this encounter
--- OUTSIDE RECORDS SUMMARY | 2025-01-11 07:12 | XMS_ITS | Encounter Summary ---
Author Organization [facility] Address 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 PHARMACY NUMBER: [phone] SECTION 1: REQUESTED ACTION licasl 10/14/06 at 04:44 pm: MEDICATION REQUEST: MEDICATION REQUEST: Patient requests a refill. gen Jesús 180 mg. od #30 LF 06/25/06 DOCTOR`S RESPONSE: shaniqua 10/14/06 at 04:47 pm MEDICATIONS: JESÚS ORAL TABLET 180 MG, 1 Every Day, 30 Dispensed, status: CONTINUED, 10/14/2006. due for fu FINAL ACTION: gayle 10/14/06 at 04:53 pm Spoke with patient 10/14/06 at 04:53 pm. Booked appointment: oct 28 @ 4pm Called pharmacy at 10/14/06 at 04:53 pm. Electronically Signed by: La Ervin on Saturday, October 14, 2006 documented in this encounter Plan of Treatment Not on file documented as of this encounter Visit Diagnoses Not on filedocumented in this encounter Care Teams Employee Relations Representative Relationship Specialty Start Date End Date Jefry Mak MD PCP - General 08/02/08 documented as of this encounter
--- OUTSIDE RECORDS SUMMARY | 2025-01-11 07:12 | XMS_ITS | Encounter Summary ---
Author Organization [facility] Address 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 HISTORY: Feels much better on Phentermine, lost wt inc energy--better than provigil ROS: ENDOCRINE: No heat or cold intolerance, no excessive thirst. CARDIAC: No chest pain, palpitations, orthopnea, dyspnea on exertion, or paroxysmal nocturnal dyspnea. RESPIRATORY: No dyspnea, cough, hemoptysis or wheezing. PHYSICAL EXAMINATION: CONSTITUTIONAL: GENERAL APPEARANCE: Healthy appearing patient in no distress. NECK/THYROID: Trachea midline. No thyroid enlargement, tenderness, or mass. No supraclavicular or cervical adenopathy. RESPIRATORY: Clear to auscultation and percussion. Normal respiratory effort. CARDIOVASCULAR: CARDIAC: Regular rhythm. No murmurs, rubs, or gallops. ARTERIAL: No aortic bruits. EDEMA/VARICOSITIES OF EXTREMITIES: No edema or varicosities. GASTROINTESTINAL: ABDOMEN: Soft, non-tender, without masses. Bowel sounds active. LIVER/SPLEEN/KIDNEY: No hepatosplenomegaly, tenderness or nodularity. Kidneys not palpable. ASSESSMENT/PLAN: 340-MULTIPLE SCLEROSIS stable 780.79-FATIGUE discussed, improved 783.1-ABNORMAL WEIGHT GAIN cont med for now pt aware of risks reassess MEDICATIONS: PHENTERMINE HCL ORAL CAPSULE CONVENTIONAL 37.5 MG, 1 Every Day, 30 Dispensed, 2 Fills, status: CONTINUED, 01/14/2007. RETURN VISIT : Patient instructed to return in 3 months. Electronically Signed by: Jefry Mak MD on December documented in this encounter Plan of Treatment Not on file documented as of this encounter Visit Diagnoses Not on filedocumented in this encounter Care Teams Community Nurse Relationship Specialty Start Date End Date Jefry Mak MD PCP - General 08/02/08 documented as of this encounter
--- OUTSIDE RECORDS SUMMARY | 2025-01-11 07:12 | XMS_ITS | Encounter Summary ---
Author Organization [facility] Address [address] [place] [address] Care Team Providers Care Aerobics Teacher Name Role Phone Jefry Mak MD Primary Care Provider [phone] Encounter Details Date Type Department Care Team (Late st Contact Info) Description 11/29/2007 Orders Only [facility] Internal Medicine [address] [address] Jefry Mak MD [address] [place] [phone] Social History Tobacco Use Types Packs/Day Years Used Date Smoking Tobacco: Never Assessed Comments Unknown Sex and Gender Information Value Date Recorded Sex Assigned at Not on file Legal Sex Female 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 Fexofenadine 180mg #30 last refill 10-28-07 DOCTOR`S RESPONSE: shaniqua 11/29/07 at 05:09 pm MEDICATIONS: JESÚS ORAL TABLET 180 MG, 1 Every Day, 30 Dispensed, 2 Fills, status: CONTINUED, 11/29/2007. FINAL ACTION: gayle 11/29/07 at 05:25 pm Called pharmacy at 11/29/07 at 05:25 pm. Electronically Signed by: La Ervin on Thursday, November 29, 2007 documented in this encounter Plan of Treatment Not on file documented as of this encounter Visit Diagnoses Not on filedocumented in this encounter Care Teams Aerobics Teacher Relationship Specialty Start Date End Date Jefry Mak MD PCP - General 08/02/08 documented as of this encounter
--- OUTSIDE RECORDS SUMMARY | 2025-01-11 07:12 | XMS_ITS | Encounter Summary ---
Author Organization [facility] Address [address] [place] [address] Care Team Providers Care Aluminum Siding Mechanic Name Role Phone Jefry Mak MD Primary Care Provider [phone] Encounter Details Date Type Department Care Team (Late st Contact Info) Description 05/12/2007 Orders Only [facility] Internal Medicine [address] [address] Jefry Mak MD [address] [place] [phone] Social History Tobacco Use Types Packs/Day Years Used Date Smoking Tobacco: Never Assessed Comments Unknown Sex and Gender Information Value Date Recorded Sex Assigned at Not on file Legal Sex Female 3:01 AM MANUAL QA TESTER Gender Identity Not on file Sexual Orientation Not on file documented as of this encounter Plan of Treatment Not on file documented as of this encounter Visit Diagnoses Not on filedocumented in this encounter Care Teams Aluminum Siding Mechanic Relationship Specialty Start Date End Date Jefry Mak MD PCP - General 08/02/08 documented as of this encounter
--- OUTSIDE RECORDS SUMMARY | 2025-01-11 07:12 | XMS_ITS | Encounter Summary ---
Author Organization [facility] Address [address] [place] [address] Care Team Providers Care Whitesmith Name Role Phone Jefry Mak MD Primary Care Provider [phone] Encounter Details Date Type Department Care Team (Late st Contact Info) Description 11/12/[address] 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
--- OUTSIDE RECORDS SUMMARY | 2025-01-11 07:12 | XMS_ITS | Encounter Summary ---
Author Organization [facility] Address 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 CHIEF COMPLAINT Patient complains of sinus congestion, cough, sore throat. HISTORY: HISTORY: 340-MULTIPLE SCLEROSIS multiple meds for fatigue reviewed 461.9-SINUSITIS UNSPECIFIED The patient's acute sinusitis has worsened. The patient has hoarseness,has posterior nasal drainage.several days 493.90-ASTHMA UNSPECIFIED The asthma has worsened. 783.1-ABNORMAL WEIGHT GAIN The patient has noted a weight increase. 784.0-HEADACHE The patient's headaches have not changed. ROS: GENERAL: FEELS FATIGUED. CARDIAC: No chest pain, palpitations, orthopnea, dyspnea on exertion, or paroxysmal nocturnal dyspnea. RESPIRATORY: HAS A COUGH, HAS ASTHMA. : No frequency, urgency, hematuria or dysuria. GI: No abdominal pain, nausea, vomiting, diarrhea, constipation, melena, or hematochezia. PAST MEDICAL HISTORY: reviewed, SOCIAL HISTORY: works PT TOBACCO USE: Has no significant smoking history. ALCOHOL: Does not give any significant history of alcohol usage. PHYSICAL EXAMINATION: CONSTITUTIONAL: GENERAL APPEARANCE: Healthy appearing patient in no distress. EARS, NOSE, MOUTH AND THROAT: EARS: EFFUSION PRESENT BILATERALLY. ORAL: OROPHARYNX ERYTHEMATOUS. NECK/THYROID: Trachea midline. [...] subcutaneous nodules or tightening. ASSESSMENT/PLAN: 340-MULTIPLE SCLEROSIS reviewed, cont med 461.9-SINUSITIS UNSPECIFIED rx MEDICATIONS: LEVAQUIN ORAL TABLET 500 MG, 1 Every Day, 14 Dispensed, 1 Fills, 10 Duration/Days Supply, status: CONTINUED, 10/26/2007. FLONASE NASAL SUSPENSION 50 MCG/ACT, DIRECTED, 3 Fills, 30 Duration/Days Supply, status: NEW PRESCRIPTION, 10/26/2007. 493.90-ASTHMA UNSPECIFIED cont inh MEDICATIONS: MEDROL (PAKO) ORAL TABLET 4 MG, DIRECTED, 1 Dispensed, status: NEW PRESCRIPTION, 10/26/2007. 780.79-FATIGUE discussed, copnt med 783.1-ABNORMAL WEIGHT GAIN reviewed, enc diet and ex 784.0-HEADACHE try med MEDICATIONS: TOPAMAX ORAL TABLET 25 MG, 1 Every Day, 30 Dispensed, status: NEW PRESCRIPTION, 10/26/2007. 333.99-RESTLESS LEG SYNDROME discussed dc requip--see if topamax helps PREVENTIVE COUNSELING The patient was counseled regarding diet, regular sustained exercise for at least 30 minutes 3-4 times per week, routine screening interval for mammogram as recommended by the [place] [employer] and ACOG, importance of regular PAP smears. Patient Education: The patient was allowed to ask questions to stated satisfaction. Risks, benefits, and possible side effects of medication(s) were reviewed with the patient. RETURN VISIT : Patient instructed to return in 3 months. Electronically Signed by: Jefry Mak MD on Friday, October 26, 2007 documented in this encounter Plan of Treatment Not on file documented as of this encounter Visit Diagnoses Not on filedocumented in this encounter Care Teams Payroll Manager Relationship Specialty Start Date End Date Jefry Mak MD PCP - General 08/02/08 documented as of this encounter
--- OUTSIDE RECORDS SUMMARY | 2025-01-11 07:12 | XMS_ITS | Encounter Summary ---
Author Organization [facility] Address [address] [place] [address] Care Team Providers Care Lift Manager Name Role Phone Brenda Hodges MD Primary Care Provider Reason for Visit * Diagnostic Imaging (Routine) - Closed Specialty Diagnoses / Procedures Referred By Contac t Referred To Contact Procedures Breast Imaging Screening Outside Reference Nellie Mendoza NP Phone: tel: fax: Referral ID Status Reason Start Date Expiration Date Visits Re quested Visits Authorized [id number] Closed 12/16/2022 01/15/2024 1 1 Encounter Details Date Type Department Care Team (Late st Contact Info) Description 06/05/2016 Hospital Encounter [facility] Radiology [facility] [address] [place] [address] Social History Tobacco Use Types Packs/Day Years [...] on file Legal Sex Female 4:52 PM EMPLOYEE 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 There will be no report generated by a [facility] Radiologist. Narrative [facility] - 12/16/2022 4:08 PM EMPLOYEE BENEFITS SPECIALIST EXAMINATION: Images For Reference Purposes Only us Nellie Mendoza PLASTIC EXTRUSION OPERATOR IMG MAMMO PROCEDURES Final Re sult [facility] documented in this encounter Visit Diagnoses Not on filedocumented in this encounter Care Teams Lift Manager Relationship Specialty Start Date End Date Brenda Hodges MD PCP - General 06/02/16 01/15/17 documented as of this encounter
--- OUTSIDE RECORDS SUMMARY | 2025-01-11 07:12 | XMS_ITS | Encounter Summary ---
Author Organization [facility] Address [address] [place] [address] Care Team Providers Care Yarn Dry Room Worker Name Role Phone Jefry Mak MD Primary Care Provider [phone] Encounter Details Date Type Department Care Team (Late st Contact Info) Description 10/13/2007 Orders Only [facility] Internal Medicine [address] [address] Jefry Mak MD [address] [place] [phone] Social History Tobacco Use Types Packs/Day Years Used Date Smoking Tobacco: Never Assessed Comments Unknown Sex and Gender Information Value Date Recorded Sex Assigned at Not on file Legal Sex Female 3:01 AM SALES AND SERVICE ADVISOR Gender Identity Not on file Sexual Orientation Not on file documented as of this encounter Progress Notes * Jefry Mak MD - 03/02/2008 1:11 PM CDT TIME:12:24 pm PATIENT`S HOME PHONE: PATIENT`S WORK PHONE: PATIENT`S INSURANCE: [employer] WHO TOOK THE CALL: Henna Negron C GENERAL INFORMATION WHO CALLED: Pharmacy called.[phone] SECTION 1: REQUESTED ACTION baldev 10/13/07 at 12:28 pm: MEDICATION REQUEST: Patient requests a refill. New Rx for pharmacy Combivent Inhaler DOCTOR`S RESPONSE: shaniqua 10/13/07 at 12:36 pm MEDICATIONS: Call in to Pharmacy COMBIVENT INHALATION AEROSOL 103-18 MCG/ACT, 2 Four Times A Day, As Needed, 3 Dispensed, 3 Fills, status: CONTINUED, 10/13/2007. FINAL ACTION: berta 10/13/07 at 05:11 pm Spoke with patient 10/13/07 at 05:11 pm. Called pharmacy at 10/13/07 at 05:11 pm. Electronically Signed by: Caitlin Saenz on Saturday, October 13, 2007 documented in this encounter Plan of Treatment Not on file documented as of this encounter Visit Diagnoses Not on filedocumented in this encounter Care Teams Yarn Dry Room Worker Relationship Specialty Start Date End Date Jefry Mak MD PCP - General 08/02/08 documented as of this encounter
--- OUTSIDE RECORDS SUMMARY | 2025-01-11 07:12 | XMS_ITS | Encounter Summary ---
Author Organization [facility] Address 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
--- OUTSIDE RECORDS SUMMARY | 2025-01-11 07:12 | XMS_ITS | Encounter Summary ---
Author Organization [facility] Address [address] [place] [address] Care Team Providers Care Computer Repair Technician Name Role Phone Brenda Hodges MD Primary Care Provider Reason for Visit * Diagnostic Imaging (Routine) - Closed Specialty Diagnoses / Procedures Referred By Contac t Referred To Contact Procedures Breast Imaging Screening Outside Reference Nellie Mendoza NP Phone: tel: fax: Referral ID Status Reason Start Date Expiration Date Visits Re quested Visits Authorized [id number] Closed 12/16/2022 01/15/2024 1 1 Encounter Details Date Type Department Care Team (Late st Contact Info) Description 03/04/2010 Hospital Encounter [facility]iology [facility] [address] [place] [address] Social History Tobacco Use Types Packs/Day Years [...] on file 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 There will be no report generated by a [facility] Radiologist. Narrative [facility] - 12/16/2022 4:12 PM SHARE DAIRY FARMER EXAMINATION: Images For Reference Purposes Only us Nellie Mendoza TAKE UP OPERATOR IMG MAMMO PROCEDURES Final Re sult [facility] documented in this encounter Visit Diagnoses Not on filedocumented in this encounter Care Teams Computer Repair Technician Relationship Specialty Start Date End Date Brenda Hodges MD PCP - General 11/30/08 07/07/10 documented as of this encounter
--- OUTSIDE RECORDS SUMMARY | 2025-01-11 07:12 | XMS_ITS | Encounter Summary ---
Author Organization [facility] Address [address] [place] [address] Care Team Providers Care Bushing And Broach Operator Name Role Phone Jefry Mak MD Primary Care Provider [phone] Encounter Details Date Type Department Care Team (Late st Contact Info) Description 10/26/2007 Outpatient Historical [facility] Internal Medicine [address] [address] Jefry Mak MD [address] [place] [phone] Social History Tobacco Use Types Packs/Day Years Used Date Smoking Tobacco: Never Assessed Comments Unknown Sex and Gender Information Value Date Recorded Sex Assigned at Not on file Legal Sex Female 3:01 AM CLEANING SUPERVISOR Gender Identity Not on file Sexual Orientation Not on file documented as of this encounter Plan of Treatment Not on file documented as of this encounter Visit Diagnoses Not on filedocumented in this encounter Care Teams Bushing And Broach Operator Relationship Specialty Start Date End Date Jefry Mak MD PCP - General 08/02/08 documented as of this encounter
--- OUTSIDE RECORDS SUMMARY | 2025-01-11 07:12 | XMS_ITS | Encounter Summary ---
Author Organization [facility] Address [address] [place] [address] Care Team Providers Care Rocket Engine Tester Name Role Phone Jefry Mak MD Primary Care Provider [phone] Encounter Details Date Type Department Care Team (Late st Contact Info) Description 01/14/2007 Outpatient Historical [facility] Internal Medicine [address] [address] Jefry Mak MD [address] [place] [phone] Social History Tobacco Use Types Packs/Day Years Used Date Smoking Tobacco: Never Assessed Comments Unknown Sex and Gender Information Value Date Recorded Sex Assigned at Not on file Legal Sex Female 3:01 AM UNMANNED EQUIPMENT OPERATOR Gender Identity Not on file Sexual Orientation Not on file documented as of this encounter Last Filed Vital Signs Vital Sign Reading Time Taken Comments Blood Pressure 130/70 01/14/2007 3:30 PM CDT Pulse - - Temperature - - Respiratory Rate - - Oxygen Saturation - - Inhaled Oxygen Concentration - - Weight 72.1 kg (159 lb) 01/14/2007 3:30 PM CDT Height - - Body Mass Index - - documented in this encounter Plan of Treatment Not on file documented as of this encounter Visit Diagnoses Not on filedocumented in this encounter Care Teams Rocket Engine Tester Relationship Specialty Start Date End Date Jefry Mak MD PCP - General 08/02/08 documented as of this encounter
--- OUTSIDE RECORDS SUMMARY | 2025-01-11 07:12 | XMS_ITS | Encounter Summary ---
Author Organization [facility] Address [address] [place] [address] Care Team Providers Care Car Varnisher Name Role Phone Jefry Mak MD Primary Care Provider [phone] Encounter Details Date Type Department Care Team (Late st Contact Info) Description 12/15/2006 Orders Only [facility] Internal Medicine [address] [address] Jefry Mak MD [address] [place] [phone] Social History Tobacco Use Types Packs/Day Years Used Date Smoking Tobacco: Never Assessed Comments Unknown Sex and Gender Information Value Date Recorded Sex Assigned at Not on file Legal Sex Female 3:01 AM B2B MANAGED SERVICE SALES EXEC Gender Identity Not on file Sexual Orientation Not on file documented as of this encounter Plan of Treatment Not on file documented as of this encounter Visit Diagnoses Not on filedocumented in this encounter Care Teams Car Varnisher Relationship Specialty Start Date End Date Jefry Mak MD PCP - General 08/02/08 documented as of this encounter
--- OUTSIDE RECORDS SUMMARY | 2025-01-11 07:12 | XMS_ITS | Encounter Summary ---
Author Organization [facility] Address [address] [place] [address] Care Team Providers Care Nursing Home Assistant Administrator Name Role Phone Jefry Mak MD Primary Care Provider [phone] Encounter Details Date Type Department Care Team (Late st Contact Info) Description 10/26/2007 Outpatient Historical [facility] Internal Medicine [address] [address] Jefry Mak MD [address] [place] [phone] Social History Tobacco Use Types Packs/Day Years Used Date Smoking Tobacco: Never Assessed Comments Unknown Sex and Gender Information Value Date Recorded Sex Assigned at Not on file Legal Sex Female 3:01 AM SPA TECHNICIAN Gender Identity Not on file Sexual Orientation Not on file documented as of this encounter Plan of Treatment Not on file documented as of this encounter Visit Diagnoses Not on filedocumented in this encounter Care Teams Nursing Home Assistant Administrator Relationship Specialty Start Date End Date Jefry Mak MD PCP - General 08/02/08 documented as of this encounter
--- OUTSIDE RECORDS SUMMARY | 2025-01-11 07:12 | XMS_ITS | Encounter Summary ---
Author Organization [facility] Address [address] [place] [address] Care Team Providers Care Winding Operator Name Role Phone Jefry Mak MD Primary Care Provider [phone] Encounter Details Date Type Department Care Team (Late st Contact Info) Description 11/12/2006 Outpatient Historical [facility] Internal Medicine [address] [address] Jefry Mak MD [address] [place] [phone] Social History Tobacco Use Types Packs/Day Years Used Date Smoking Tobacco: Never Assessed Comments Unknown Sex and Gender Information Value Date Recorded Sex Assigned at Not on file Legal Sex Female 3:01 AM OFFICE SERVICES SPECIALIST Gender Identity Not on file Sexual Orientation Not on file documented as of this encounter Plan of Treatment Not on file documented as of this encounter Visit Diagnoses Not on filedocumented in this encounter Care Teams Winding Operator Relationship Specialty Start Date End Date Jefry Mak MD PCP - General 08/02/08 documented as of this encounter
--- OUTSIDE RECORDS SUMMARY | 2025-01-11 07:12 | XMS_ITS | Encounter Summary ---
Author Organization [facility] Address [address] [place] [address] Care Team Providers Care Platform Stapler Name Role Phone Jefry Mak MD Primary Care Provider [phone] Encounter Details Date Type Department Care Team (Late st Contact Info) Description 11/13/2006 Orders Only [facility] Internal Medicine [address] [address] Jefry Mak MD [address] [place] [phone] Social History Tobacco Use Types Packs/Day Years Used Date Smoking Tobacco: Never Assessed Comments Unknown Sex and Gender Information Value Date Recorded Sex Assigned at Not on file Legal Sex Female 3:01 AM PRODUCTION PLANNER Gender Identity Not on file Sexual Orientation Not on file documented as of this encounter Progress Notes * Jerfy Mak MD - 03/14/2008 2:27 PM CDT TIME:11:41 am PATIENT`S HOME PHONE: PATIENT`S WORK PHONE: PATIENT`S INSURANCE: [employer] WHO TOOK THE CALL: La Ervin J documented in this encounter Plan of Treatment Not on file documented as of this encounter Visit Diagnoses Not on filedocumented in this encounter Care Teams Platform Stapler Relationship Specialty Start Date End Date Jefry Mak MD PCP - General 08/02/08 documented as of this encounter
--- OUTSIDE RECORDS SUMMARY | 2025-01-11 07:12 | XMS_ITS | Encounter Summary ---
Author Organization [facility] Healthcare Address [address] [place] [address] Care Team Providers Care It Software Engineer Name Role Phone Brenda Hodges MD Primary Care Provider Reason for Visit * Diagnostic Imaging (Routine) - Closed Specialty Diagnoses / Procedures Referred By Contac t Referred To Contact Procedures Breast Imaging Diagnostic Outside Reference Nellie Mendoza NP Phone: tel: fax: Referral ID Status Reason Start Date Expiration Date Visits Re quested Visits Authorized [id number] Closed 12/16/2022 01/15/2024 1 1 Encounter Details Date Type Department Care Team (Late st Contact Info) Description 11/18/2007 Hospital Encounter [facility] [address] [place] [id number] Social History Tobacco Use Types Packs/Day Years [...] on file Legal Sex Female 4:52 PM FORMS BUILDER Gender Identity Not on file Sexual Orientation Not on file documented as of this encounter Plan of Treatment Not on file documented as of this encounter Procedures Procedure Name Priority Date/Time Associated Diagnosis Comments BREAST IMAGING MG DIAGNOSTIC OUTSIDE REFERENCE Routine 11/18/2007 12:00 AM FORMS BUILDER documented in this encounter Results * Breast Imaging Diagnostic Outside Reference (11/18/2007 12:00 AM FORMS BUILDER) Impressions [facility] - 12/16/2022 4:25 PM FORMS BUILDER These images are for Reference purposes only and have not been reviewed by [facility] Radiology. There will be no report generated by a [facility] Radiologist. Narrative [facility] - 12/16/2022 4:25 PM FORMS BUILDER EXAMINATION: Images For Reference Purposes Only us Nellie Mendoza SCALE ATTENDANT IMG MAMMO PROCEDURES Final Re sult [facility] documented in this encounter Visit Diagnoses Not on filedocumented in this encounter Care Teams It Software Engineer Relationship Specialty Start Date End Date Brenda Hodges MD PCP - General 03/25/07 04/04/08 documented as of this encounter
--- OUTSIDE RECORDS SUMMARY | 2025-01-11 07:13 | XMS_ITS | Encounter Summary ---
Author Organization [facility] Healthcare Address [address] [place] [address] Care Team Providers Care Office Manager Receptionist Name Role Phone Brenda Hodges MD Primary Care Provider Reason for Visit * Diagnostic Imaging (Routine) - Closed Specialty Diagnoses / Procedures Referred By Contac t Referred To Contact Procedures Breast Imaging US Outside Reference Nellie Mendoza NP Phone: tel: fax: Referral ID Status Reason Start Date Expiration Date Visits Re quested Visits Authorized [id number] Closed 12/16/2022 01/15/2024 1 1 Encounter Details Date Type Department Care Team (Late st Contact Info) Description 11/18/2007 12:05 AM GEOLOGY FACULTY MEMBER Hospital Encounter [facility] Radiology [facility] [address] [place] [phone] Social History Tobacco Use Types Packs/Day Years [...] on file Legal Sex Female 4:52 PM GEOLOGY FACULTY MEMBER Gender Identity Not on file Sexual Orientation Not on file documented as of this encounter Plan of Treatment Not on file documented as of this encounter Procedures Procedure Name Priority Date/Time Associated Diagnosis Comments BREAST IMAGING US OUTSIDE REFERENCE Routine 11/18/2007 12:05 AM GEOLOGY FACULTY MEMBER documented in this encounter Results * Breast Imaging US Outside Reference (11/18/2007 12:05 AM GEOLOGY FACULTY MEMBER) Impressions [facility] - 12/16/2022 4:25 PM GEOLOGY FACULTY MEMBER These images are for Reference purposes only and have not been reviewed by [facility] Radiology. There will be no report generated by a [facility] Radiologist. Narrative [facility] - 12/16/2022 4:25 PM GEOLOGY FACULTY MEMBER EXAMINATION: Images For Reference Purposes Only us Nellie Mendoza ORAL AND MAXILLOFACIAL SURGEON IMG MAMMO PROCEDURES Final Re sult [facility] documented in this encounter Visit Diagnoses Not on filedocumented in this encounter Care Teams Office Manager Receptionist Relationship Specialty Start Date End Date Brenda Hodges MD PCP - General 03/25/07 04/04/08 documented as of this encounter
--- OUTSIDE RECORDS SUMMARY | 2025-01-11 07:13 | XMS_ITS | Encounter Summary ---
Author Organization [facility] Address [address] [place] [address] Care Team Providers Care Spa Receptionist Name Role Phone Jefry Mak MD Primary Care Provider [phone] Encounter Details Date Type Department Care Team (Late st Contact Info) Description 11/07/2003 Outpatient Historical [facility] Internal Medicine [address] [address] Riccardo Simon MD [address] [place] [phone] Social History Tobacco Use Types Packs/Day Years Used Date Smoking Tobacco: Never Assessed Comments Unknown Sex and Gender Information Value Date Recorded Sex Assigned at Not on file Legal Sex Female 3:01 AM BENEFITS MANAGER Gender Identity Not on file Sexual Orientation Not on file documented as of this encounter Last Filed Vital Signs Vital Sign Reading Time Taken Comments Blood Pressure 102/70 11/07/2003 4:00 PM BENEFITS MANAGER Pulse - - Temperature 36.2 C (97.1 F) 11/07/2003 4:00 PM BENEFITS MANAGER Respiratory Rate - - Oxygen Saturation - - Inhaled Oxygen Concentration - - Weight 66.2 kg (146 lb) 11/07/2003 4:00 PM BENEFITS MANAGER Height - - Body Mass Index - - documented in this encounter Plan of Treatment Not on file documented as of this encounter Visit Diagnoses Not on filedocumented in this encounter Care Teams Spa Receptionist Relationship Specialty Start Date End Date Jefry Mak MD PCP - General 08/02/08 documented as of this encounter
--- OUTSIDE RECORDS SUMMARY | 2025-01-11 07:13 | XMS_ITS | Encounter Summary ---
Author Organization [facility] Address [address] [place] [address] Care Team Providers Care Oil Plant Operator Name Role Phone Jefry Mak MD Primary Care Provider [phone] Encounter Details Date Type Department Care Team (Late st Contact Info) Description 11/07/2004 Outpatient Historical [facility] Internal Medicine [address] [address] Jefry Mak MD [address] [place] [phone] Social History Tobacco Use Types Packs/Day Years Used Date Smoking Tobacco: Never Assessed Comments Unknown Sex and Gender Information Value Date Recorded Sex Assigned at Not on file Legal Sex Female 3:01 AM MEAL COOK Gender Identity Not on file Sexual Orientation Not on file documented as of this encounter Last Filed Vital Signs Vital Sign Reading Time Taken Comments Blood Pressure 110/70 11/07/2004 3:15 PM MEAL COOK Pulse - - Temperature 36.7 C (98 F) 11/07/2004 3:15 PM MEAL COOK Respiratory Rate - - Oxygen Saturation - - Inhaled Oxygen Concentration - - Weight 77.1 kg (170 lb) 11/07/2004 3:15 PM MEAL COOK Height - - Body Mass Index - - documented in this encounter Plan of Treatment Not on file documented as of this encounter Visit Diagnoses Not on filedocumented in this encounter Care Teams Oil Plant Operator Relationship Specialty Start Date End Date Jefry Mak MD PCP - General 08/02/08 documented as of this encounter
--- OUTSIDE RECORDS SUMMARY | 2025-01-11 07:13 | XMS_ITS | Encounter Summary ---
Author Organization [facility] Healthcare Address [address] [place] [address] Care Team Providers Care Irrigationist Designer Name Role Phone Brenda Hodges MD Primary Care Provider Reason for Visit * Diagnostic Imaging (Routine) - Closed Specialty Diagnoses / Procedures Referred By Contac t Referred To Contact Procedures Breast Imaging Screening Outside Reference Nellie Mendoza NP Phone: tel: fax: Referral ID Status Reason Start Date Expiration Date Visits Re quested Visits Authorized [id number] Closed 12/16/2022 01/15/2024 1 1 Encounter Details Date Type Department Care Team (Late st Contact Info) Description 12/14/2007 Hospital Encounter [facility] Radiology [facility] [address] [place] [id number] Social History Tobacco Use Types Packs/Day Years [...] on file Legal Sex Female 4:52 PM SUPERVISOR ROSE GRADING Gender Identity Not on file Sexual Orientation Not on file documented as of this encounter Plan of Treatment Not on file documented as of this encounter Procedures Procedure Name Priority Date/Time Associated Diagnosis Comments BREAST IMAGING MG SCREENING OUTSIDE REFERENCE Schedule Routine, Read Routine (OP Routine) 12/14/2007 12:00 AM SUPERVISOR ROSE GRADING documented in this encounter Results * Breast Imaging Screening Outside Reference (12/14/2007 12:00 AM SUPERVISOR ROSE GRADING) Impressions [facility] - 12/16/2022 4:09 PM SUPERVISOR ROSE GRADING These images are for Reference purposes only and have not been reviewed by [facility] Radiology. There will be no report generated by a [facility] Radiologist. Narrative [facility] - 12/16/2022 4:09 PM SUPERVISOR ROSE GRADING EXAMINATION: Images For Reference Purposes Only us Nellie Mendoza INSTALLERS MECHANICAL IMG MAMMO PROCEDURES Final Re sult [facility] documented in this encounter Visit Diagnoses Not on filedocumented in this encounter Care Teams Irrigationist Designer Relationship Specialty Start Date End Date Brenda Hodges MD PCP - General 03/25/07 04/04/08 documented as of this encounter
--- OUTSIDE RECORDS SUMMARY | 2025-01-11 07:13 | XMS_ITS | Clinical Summary ---
Author Organization [facility] Address [address] [place] [address] Care Team Providers Care Risk Mgr Name Role Phone Jefry Mak MD Primary Care Provider [phone] Allergies Active Allergy Reactions Criticality Noted Date Comments No Known Allergies 11/13/2003 Medications REQUIP 0.25 mg Oral Tab 1 Every Day At Bedtime 30.00 0 8 Active glatiramer acetate (COPAXONE) 20 mg subCUT Kit Inject 20 mg by subcutaneous injection daily. 1 Kit 6 9 Active fexofenadine (JESÚS) 180 mg Oral tablet Take 1 Tab by mouth daily. 90 Tab 3 0 Active albuterol-ipratr opium (COMBIVENT) 103-18 mcg/Actuation Inhalation Aero Take 2 Puffs by inhalation 4 times daily. 3 Inhaler 3 3 Active ipratropium-albu terol (COMBIVENT RESPIMAT) 20-100 mcg/actuation Aerosol Take 1 Puff by inhalation every 6 hours. 4 Gram 6 3 Active albuterol 90 mcg/Actuation HFA inhaler Take 2 Puffs by inhalation every 6 hours as needed for Shortness of Breath. 25.5 Gram 3 4 Active fluticasone-salm eterol (ADVAIR DISKUS) 250-50 mcg/dose Disk with Device Take 1 Puff by inhalation 2 times daily. 3 Inhaler 3 4 Active montelukast (SINGULAIR) 10 mg tablet Take 1 Tab (10 mg) by mouth daily. 30 Tab 4 5 Active montelukast (SINGULAIR) 10 mg tablet Take 1 Tab (10 mg) by mouth daily. 90 Tab 3 5 Active fluticasone-salm eterol (ADVAIR DISKUS) 250-50 mcg/dose Disk with Device Take 1 Puff by inhalation 2 times daily. 3 Inhaler 4 5 Active albuterol sulfate (VENTOLIN HFA) 90 mcg/Actuation inhaler Take 2 Puffs by inhalation every 6 hours as needed for Wheezing. 24 Gram 3 5 Active ipratropium-albu terol (DUONEB) 0.5 mg-3 mg(2.5 mg base)/3 mL Solution for Nebulization Take 3 mL by inhalation every 6 hours as needed for Shortness of Breath. 30 Each 3 5 Active Active Problems Patient Care Coordination No te Formatting of this note migh t be different from the original. 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 Unspecified asthma(493.90) 11/12/2006 Headache(784.0) 11/12/2006 Other malaise and fatigue 11/07/2004 Multiple sclerosis 11/07/2003 Resolved Problems Problem Noted Date Diagnosed Date Resolved Date Abnormal weight gain 11/12/2006 008 Need for prophylactic vaccin ation against Streptococcus pneumoniae (pneumococcus) 11/12/2006 08/25/2008 Rash and other nonspecific skin eruption 07/16/2005 08/25/2008 Cellulitis and abscess of unspecified site 06/20/2005 08/25/2008 Dizziness and giddiness 05/12/200504/2008 Acute sinusitis, unspecified 11/07/2004 08/25/2008 Unspecified asthma, with status asthmaticus 11/13/2003 08/25/2008 Acute nasopharyngitis (common cold) 11/07/2003 08/25/2008 Immunizations Immunization Administration Dates Next Due (ADACEL/BOOSTRIX)(10 YR UP) TDAP VACCINE, 0.5ML, IM 08/25/2008 (PNEUMOVAX 23)(50 YRS UP) PN EUMOCOCCAL POLYSACCHARIDE (PPV23) 0.5 ML, IM 11/12/2006,12/10/1998 (TDVAX)(7 YRS UP) TETANUS AN D DIPHTHERIA TOXOIDS, ADSORBED (2 LF OF TETANUS TOXOID AND 2 LF OF DIPHTHERIA TOXOID), 0.5ML (PF), IM 11/15/2002 Influenza Seasonal Unspecifi ed Formulation IM 07/27/2014,08/12/2013,07/19/2012,07/28,07/19/2010,07/28/2009 Social History Tobacco Use Types Packs/Day Years Used Date Smoking Tobacco: Never Alcohol Use Standard Drinks/Week Comments No 0 (1 standard drink = 0.6 oz pur e alcohol) Comments No Sex and Gender Information Value Date Recorded Sex Assigned at Not on file Legal Sex Female 3:01 AM INFRASTRUCTURE DESIGN ENGINEER Gender Identity Not on file Sexual Orientation Not on file Last Filed Vital Signs Vital Sign Reading Time Taken Comments Blood Pressure 120/80 12/25/2014 4:11 PM CDT Pulse - - Temperature 37.1 C (98.7 F) 12/25/2014 4:11 PM CDT Respiratory Rate - - Oxygen Saturation - - Inhaled Oxygen Concentration - - Weight 77.1 kg (170 lb) 12/25/2014 4:11 PM CDT Height 165.1 cm (5' 5 ) 12/25/2014 4:11 PM CDT Body Mass Index 28.29 12/25/2014 4:11 PM CDT Plan of Treatment Health Maintenance Due Date Last Done Comments HEPATITIS B VACCINES (1 of 3 - 19+ 3-dose series) 1984 PAP SMEAR 1986 HPV/Cotest 1995 BREAST CANCER SCREENING 2005 COLORECTAL SCREENING 2010 Colorectal Cancer Screening 2010 FIT-DNA Q 3 years 2010 FIT/FOBT Q 1 year 2010 Flex Sig/CT Colonography Q 5 years 2010 CERVICAL CANCER SCREENING 05/19/2014 PAP SMEAR 05/19/2014 05/19/2011 ZOSTER VACCINE (1 of 2) 2015 DTAP/TDAP/TD VACCINES (2 - T d or Tdap) 08/25/2018 08/25/2008, 11/15/2002 INFLUENZA VACCINE (#1) 2024 6, 07/19/2015, 08/19/2014, Additional history exists Preventative Visit- Commercial 10/19/2024 0 10/26/2019, 12/25/2014, 12/30/2013, Additional history exists Insurance [employer] PPO [id number] Care Teams Risk Mgr Relationship Specialty Start Date End Date Jefry Mak MD PCP - General 08/02/08
--- OUTSIDE RECORDS SUMMARY | 2025-01-11 07:13 | XMS_ITS | Referral Summary ---
Author Organization [facility] Address [address] [place] [address] Care Team Providers Care Spanish Instructor Name Role Phone Jay Pitts MD Unavailable [phone] Nellie Mendoza NP Primary Care Provider [phone] Encounters Date Type Department Care Team Description 12/20/2024 1:30 PM WATERWORKS OPERATOR Office Visit [facility] [address] [place] [address] Jay Pitts MD Multiple sclerosis (HCC) (Primary Dx); Restless leg syndrome; Intracranial meningioma (HCC) 11/03/2024 Telephone [facility] [address] [place] [address] Sofía Joshi RPh from Last 3 Months Allergies Active Allergy Reactions Criticality Noted Date Comments Erythromycin Stomach upset Low Hydrocodone-Acetaminophen Nausea only,Stomach upset Low 01/28/2019 Medications fexofenadine (JESÚS) 180 mg tablet take 1 tablet by oral route every day 30 0 06/02/20 16 Active cholecalciferol (VITAMIN D3) 2,000 unit tablet Take 2 tablets by oral route every day 0 0 06/02/20 16 Active cyanocobalamin (vitamin B-12) 1,000 mcg tablet Take 2 tablets by oral route every day 0 0 06/02/20 16 Active ipratropium-albu terol (DUO-NEB) 0.5-2.5 mg/3 mL nebulizer solution USE 1 VIAL VIA NEBULATION ROUTE Q 4 H PRN FOR SHORTNESS OF BREATH 0 01/24/20 19 Active rOPINIRole (REQUIP) 0.25 mg tabletIndication s:Restless leg syndrome Take 1 to 2 tablets orally at night as needed. 180 tablet 3 03/25/20 19 Active vit C/E/Zn/coppr/lut ein/zeaxan (PRESERVISION AREDS-2 ORAL) Take by mouth Ac tive modafiniL (PROVIGIL) 200 mg tabletIndication s:Multiple sclerosis (HCC) TAKE 1 TABLET BY MOUTH IN THE MORNING AND 1 TABLET AT NOON 180 tablet 3 05/13/20 23 Active fluticasone propion-salmeter oL (ADVAIR HFA) 230-21 mcg/actuation inhaler Inhale 2 puffs 2 (two) times a day Rinse mouth with water after use. Do not swallow. 3 each 3 08/31/20 24 Active montelukast (SINGULAIR) 10 mg tabletIndication s:Moderate persistent asthma without complication Take 1 tablet (10 mg total) by mouth nightly 90 tablet 3 08/31/20 24 Active inhalational spacing device (Aerochamber MV) spacer 1 Device every 4 (four) hours as needed (wheezing) 1 each 09/08/20 24 Active albuterol HFA (PROVENTIL HFA,VENTOLIN HFA,PROAIR HFA) 90 mcg/actuation inhaler Inhale 2 puffs every 6 (six) hours as needed for wheezing 1 each 11 09/13/20 24 025 Active Copaxone 40 mg/mL syringe INJECT 40MG SUBCUTANEOUSLY THREE TIMES WEEKLY AT LEAST 48 HOURS APART 12 mL 5 11/01/19 25 Active Active Problems Problem Noted Date Diagnosed Date Class 1 obesity with body ma ss index (BMI) of 32.0 to 32.9 in adult 08/04/2022 Assessment & Plan (08/04/2022 8:02 PM CDT): BMI Follow-up includes: exercise counseling. Hand arthritis 08/04/2022 Assessment & Plan (08/04/2022 8:04 PM CDT): Wants to try cbd cream first. I also discussed diclofenac cream otc. Gave printed rx for PUSH splint. Will keep oral anti-inflammatories last if needed History of COVID-19 02/07/2021 Assessment & Plan (11/14/2023 9:57 AM WATERWORKS OPERATOR): August 2020. Cough, fever < 102 F, loss of smell and taste, nausea and diarrhea. Nasopharyngeal PCR positive Assessment & Plan (05/13/2023 6:05 PM CDT): August 2020. Cough, fever < 102 F, loss of smell and taste, nausea and diarrhea. Nasopharyngeal PCR positive Assessment & Plan (06/12/2022 5:03 PM CDT): August 2020. Cough, fever < 102 F, loss of smell and taste, nausea and diarrhea. Nasopharyngeal PCR positive Assessment & Plan (08/14/2021 5:49 PM CDT): August 2020. Cough, fever < 102 F, loss of smell and taste, nausea and diarrhea. Nasopharyngeal PCR positive Assessment & Plan (02/07/2021 7:11 AM CDT): August 2020. Cough, fever < 102 F, loss of smell and taste, nausea and diarrhea. Nasopharyngeal PCR positive Healthcare maintenance 10/26/2019 Assessment & Plan (08/31/2024 8:25 AM WATERWORKS OPERATOR): -Recommended: Healthy diet. Avoiding junk food/fast food. -30 minutes of exercise most days of the week. Increase to 45 minutes for weight loss. Health Maintenance reviewed - patient asked to schedule her mammogram, encouraged to have labs done. -Influenza vaccine every year Recommend: - Topic Date Due Pneumococcal vaccine <65 (2 of 2 - PCV) 11/12/2007 -F/u in 1 year for Annual PE or sooner if needed Assessment & Plan (08/14/2023 1:31 PM CDT): -Recommended: Healthy, prudent diet. Avoiding junk food/fast food. -30 minutes of exercise most days of the week. Increase to 45 minutes for weight loss. -Mammogram every 1 year, starting at age 40; regular self breast & skin examinations (1 week after cycle begins) -Regular gynecologic examinations with pelvic exam & PAP smear every 3-5 years if you have not had a hysterectomy (does have a tool chaser), -Periodic blood pressure monitoring, & bone-density testing (starting at age 65 in average-risk person) -Colonoscopy at age 45 and further colonoscopys pending GI recs. , alternative cologuard Up to date -Influenza vaccine every year will obtain at work tomorrow Up to date, see immunization history -F/u in 1 year for Annual PE or sooner if needed -Labs as ordered Assessment & Plan (08/04/2022 8:05 PM CDT): Patient Counseling: --Nutrition: Stressed importance of moderation in sodium/caffeine intake, saturated fat and cholesterol, caloric balance, sufficient intake of fresh fruits, vegetables, --Exercise: Stressed the importance of regular exercise. --Continue routine dental and vision visits --Immunizations reviewed and offered- updated for shingrex, discussed pneumovax 20, pt may get at next OV --Discussed benefits of screening colonoscopy.- starting at age 45-50- referral placed --females- mammograms offered if applicable/ needed., - ordered -Routine labs/ screenings ordered Assessment & Plan (08/01/2021 8:12 AM CDT): Patient Counseling: --Nutrition: Stressed importance of moderation in sodium/caffeine intake, saturated fat and cholesterol, caloric balance, sufficient intake of fresh fruits, vegetables, --Exercise: Stressed the importance of regular exercise. --Dental health: Discussed importance of regular tooth brushing, flossing, and dental visits. --Immunizations reviewed and offered --Discussed benefits of screening colonoscopy. --females- mammograms offered if applicable/ needed. Assessment & Plan (10/26/2019 8:11 AM WATERWORKS OPERATOR): -Recommended: Healthy diet. Avoiding junk food/fast food. -30 minutes of exercise most days of the week. Increase to 45 minutes for weight loss. -Mammogram every 1 year - order given -Influenza vaccine every year- up to date -recommended tdap - pt believes she had one about 5 years ago and will check her records -F/u in 1 year for Annual PE or sooner if needed - will schedule pap in 6-9 months Restless leg syndrome 03/25/2019 Assessment & Plan (11/14/2023 9:57 AM WATERWORKS OPERATOR): Ropinirole 0.25 mg qhs. Risks discussed. Assessment & Plan (05/13/2023 6:04 PM CDT): Ropinirole 0.25 mg qhs. Risks discussed. Assessment & Plan (06/12/2022 4:57 PM CDT): Ropinirole 0.25 mg qhs. Risks discussed. Assessment & Plan (08/14/2021 5:49 PM CDT): Ropinirole 0.25 to 0.5 mg qhs. Risks discussed. Assessment & Plan (02/07/2021 7:12 AM CDT): Ropinirole 0.25 to 0.5 mg qhs. Risks discussed. Assessment & Plan (08/08/2020 10:06 AM CDT): Ropinirole 0.25 to 0.5 mg qhs. Risks discussed. Assessment & Plan (12/14/2019 1:04 PM WATERWORKS OPERATOR): Ropinirole 0.25 to 0.5 mg qhs. Risks discussed. Assessment & Plan (03/25/2019 9:27 AM CDT): Ropinirole 0.25 to 0.5 mg qhs. Risks discussed. Moderate persistent asthma without complication 01/28/2019 Assessment & Plan (08/31/2024 8:24 AM WATERWORKS OPERATOR): Insurance directed, change to advair HFA. Uses albuteral sparingly. Renewed albuterol. Assessment & Plan (08/14/2023 1:30 PM CDT): Stable. Continue advair. Albuterol prn. She's having current sinus congestion, allergy flare-up. Will start prednisone 40mg x 5 days. Assessment & Plan (08/04/2022 8:46 AM CDT): Stable on advair. Uses albuterol rarely. Continue current medications. Assessment & Plan (08/01/2021 7:36 AM CDT): Stable on advair. Continue albuterol prn. Assessment & Plan (10/26/2019 8:11 AM WATERWORKS OPERATOR): Continue advair, albuterol prn Vitamin B 12 deficiency 01/28/2019 Assessment & Plan (08/31/2024 8:25 AM WATERWORKS OPERATOR): Check B12. Encouraged to get labs done Assessment & Plan (08/04/2022 8:45 AM CDT): Pt is not sure if she was ever B12 deficient, thinks she may have been told to take it for brain health or energy. Will check B12 level today Multiple sclerosis 10/26/2013 Assessment & Plan (08/31/2024 8:26 AM WATERWORKS OPERATOR): Stable - managed by neurology. On capoxone. Assessment & Plan (11/14/2023 9:57 AM WATERWORKS OPERATOR): Minimal intracranial disease including a lesion adjacent to the anterior horn of the right lateral ventricle. C2 T2-hyperintense cord lesion. Initially, she had cervical and thoracic cord lesions which have improved. In addition, she had enhancing right pontine lesion on September 22, 2006 MRI imaging. Never had a lumbar puncture. Copaxone brand-name 40 mg 3 times weekly. Risks discussed including immediate post-injection reactions and lipoatrophy. Manual injections. COVID-19 pandemic discussed. Risk of COVID-19 reinfection discussed. Received J&J COVID-19 vaccine January 24, 2021. Booster vaccination recommended again. Paxlovid advised if she develops COVID-19 again. Continue Provigil 200 mg in the morning and 200 mg at noon as needed. Vitamin D3 supplement 2000 IU daily Exercise encouraged. Assessment & Plan (05/13/2023 6:03 PM CDT): Minimal intracranial disease including a lesion adjacent to the anterior horn of the right lateral ventricle. C2 T2-hyperintense cord lesion. Initially, she had cervical and thoracic cord lesions which have improved. In addition, she had enhancing right pontine lesion on September 22, 2006 MRI imaging. Never had a lumbar puncture. Copaxone brand-name 40 mg 3 times weekly. Risks discussed including immediate post-injection reactions and lipoatrophy. Manual injections. COVID-19 pandemic discussed. Risk of COVID-19 reinfection discussed. Received J&J COVID-19 vaccine January 24, 2021. Booster vaccination recommended again. Paxlovid advised if she develops COVID-19 again. Continue Provigil 200 mg in the morning and 200 mg at noon since having insomnia. Vitamin D3 supplement 2000 IU daily Exercise encouraged. MRI brain and cervical spinal cord with contrast to be completed [facility]. Ordered again. Assessment & Plan (06/12/2022 4:56 PM CDT): Minimal intracranial disease including a lesion adjacent to the anterior horn of the right lateral ventricle. C2 T2-hyperintense cord lesion. Initially, she had cervical and thoracic cord lesions which have improved. In addition, she had enhancing right pontine lesion on September 22, 2006 MRI imaging. Never had a lumbar puncture. Copaxone brand-name 40 mg 3 times weekly. Risks discussed including immediate post-injection reactions and lipoatrophy. COVID-19 pandemic discussed. Risk of COVID-19 reinfection discussed. Received J&J COVID-19 vaccine January 24, 2021. Booster vaccination recommended again. Paxlovid advised if she develops COVID-19 again. Continue Provigil 200 mg in the morning. Decreased Provigil to 100 mg at noon from 200 mg at noon since having insomnia. Vitamin D3 supplement 2000 IU daily Exercise encouraged. MRI brain and cervical spinal cord to be completed [facility]. Previously ordered. Assessment & Plan (08/14/2021 5:48 PM CDT): Minimal intracranial disease including a lesion adjacent to the anterior horn of the right lateral ventricle. C2 T2-hyperintense cord lesion. Initially, she had cervical and thoracic cord lesions which have improved. In addition, she had enhancing right pontine lesion on September 22, 2006 MRI imaging. Never had a lumbar puncture. Copaxone brand-name 40 mg 3 times weekly. Risks discussed including immediate post-injection reactions and lipoatrophy. COVID-19 pandemic discussed. 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 Risk of reinfection discussed. Received J&J COVID-19 vaccine January 24, 2021. Booster vaccination recommended. Provigil 200 mg AM and 200 mg Noon Vitamin D3 supplement 2000 IU daily Exercise encouraged. Assessment & Plan (02/07/2021 7:10 AM CDT): Minimal intracranial disease including a lesion adjacent to the anterior horn of the right lateral ventricle. C2 T2-hyperintense cord lesion. Initially, she had cervical and thoracic cord lesions which have improved. In addition, she had enhancing right pontine lesion on September 22, 2006 MRI imaging. Never had a lumbar puncture. Copaxone brand-name 40 mg 3 times weekly. Risks discussed including immediate post-injection reactions and lipoatrophy. COVID-19 pandemic discussed. 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 Risk of reinfection discussed. Received J&J COVID-19 vaccine January 24, 2021. Efficacy data reviewed. Provigil 200 mg AM and 200 mg Noon Vitamin D3 supplement 3000 IU daily Exercise encouraged. Repeat MRI scan of the brain and cervical spine April 2021 Assessment & Plan (08/08/2020 10:05 AM CDT): Minimal intracranial disease including a lesion adjacent to the anterior horn of the right lateral ventricle. C2 T2-hyperintense cord lesion. Initially, she had cervical and thoracic cord lesions which have improved. In addition, she had enhancing right pontine lesion on September 22, 2006 MRI imaging. Never had a lumbar puncture. Copaxone brand-name 40 mg 3 times weekly. Risks discussed including immediate post-injection reactions and lipoatrophy. COVID-19 pandemic discussed. 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 Provigil 200 mg AM and 200 mg Noon Vitamin D3 supplement 3000 IU daily Exercise encouraged. Repeat MRI scan of the brain and cervical spine April 2021 Assessment & Plan (12/14/2019 1:04 PM WATERWORKS OPERATOR): Minimal intracranial disease including a lesion adjacent to the anterior horn of the right lateral ventricle. C2 T2-hyperintense cord lesion. Initially, she had cervical and thoracic cord lesions which have improved. In addition, she had enhancing right pontine lesion on September 22, 2006 MRI imaging; MRI from 2005 reviewed at this appointment. Never had a lumbar puncture. Copaxone 40 mg 3 times weekly. Risks discussed including immediate post- injection reactions and lipoatrophy. Risks of relapse, new MRI activity and disability progression off DMT emphasized. Provigil 200 mg AM and 200 mg Noon Vitamin D3 supplement 3000 IU daily Exercise Requested recent labs from [facility]. Assessment & Plan (03/25/2019 9:25 AM CDT): Copaxone 40 mg TIW restart. Risks discussed including immediate post-injection reactions and lipoatrophy. Risks of relapse, new MRI activity and disability progression off DMT emphasized. Provigil 200 mg AM and 100-200 mg Noon Vitamin D3 supplement 2000 IU daily Exercise Adherence to follow-up appointments every 6 months. Pt has not followed up since February 2017. Intracranial meningioma 09/23/2013 Assessment & Plan (11/14/2023 9:57 AM WATERWORKS OPERATOR): S/p left frontal meningioma resection Oct 2013 Will continue to monitor with MRI imaging Assessment & Plan (05/13/2023 6:03 PM CDT): S/p left frontal meningioma resection Oct 2013 Will continue to monitor with MRI imaging Assessment & Plan (06/12/2022 4:57 PM CDT): S/p left frontal meningioma resection Oct 2013 Will continue to monitor with MRI imaging Assessment & Plan (08/14/2021 5:48 PM CDT): S/p left frontal meningioma resection Oct 2013 Will continue to monitor with MRI imaging Assessment & Plan (02/07/2021 7:11 AM CDT): S/p left frontal meningioma resection Oct 2013 Will continue to monitor with MRI imaging Assessment & Plan (08/08/2020 10:06 AM CDT): S/p left frontal meningioma resection Oct 2013 Will continue to monitor with MRI imaging Assessment & Plan (12/14/2019 1:03 PM WATERWORKS OPERATOR): S/p left frontal meningioma resection Oct 2013 Will continue to monitor with MRI imaging Assessment & Plan (03/25/2019 9:26 AM CDT): S/p left frontal meningioma resection Oct 2013 Follow-up MRI brain ordered. Resolved Problems Problem Noted Date Diagnosed Date Resolved Date Primary insomnia 06/12/2022 05/13/2023 Assessment & Plan (06/12/2022 5:02 PM CDT): Decrease Provigil noon dose to 100 mg from 200 mg. Try trazodone 50 mg at bedtime. Encounter for well woman macho garcia with routine gynecological exam 07/26/2020 08/04/2022 Assessment & Plan (07/26/2020 8:37 AM CDT): Normal female exam: -Pap smear every .3 -5 years -Influenza vaccine every year -F/u in 1 year for physical or sooner if needed - discussed: vaginal dryness and treatment options. will start premarin vaginal cream twice weekly -Mammogram: normal--routine follow-up in 12 months General Recommendations: -Healthy, low fat diet. Avoiding junk food/fast food. -30 minutes of exercise most days of the week. Increase to 45 minutes for weight loss. Vitamin D deficiency 01/28/2019 019 Immunizations Immunization Administration Dates Next Due Influenza, Quadrivalent, Spl it, Intramuscular 07/28/2016,07/19/2015 Influenza, Trivalent, IM (MDV) 4,08/12/2013,07/19/2012,07/28,07/19/2010,07/28/2009 Influenza, Trivalent, Preser vative Free, Intramuscular 08/19/2014,09/07/2013 Influenza, Unspecified 08/07/2024,2021,07/30/2021,07/19,07/19/2019 Margy (J&J) SARS-CoV-2 Vaccination 01/24/2021 Pneumococcal Polysaccharide PPV23 11/12/2006, Td, Unspecified 03/03/2015 Td, adsorbed 11/15/2002 Tdap 08/25/2008 ZOSTER Recombinant 12/05/2022,08/04/2022 Social History Tobacco Use Types Packs/Day Years Used Date Smoking Tobacco: Never Smokeless Tobacco: Never Tobacco Cessation:Counseling Given: Not Answered Alcohol Use Standard Drinks/Week Comments No 0 (1 standard drink = 0.6 oz pur e alcohol) PHQ-2 Answer Date Recorded PHQ-2 Total Score (If total score is 3 or more points, staff should administer the PHQ-9) 0 08/31/2024 Comments Unknown Sex and Gender Information Value Date Recorded Sex Assigned at Not on file Legal Sex Female 4:52 PM WATERWORKS OPERATOR Gender Identity Not on file Sexual Orientation Not on file Last Filed Vital Signs Vital Sign Reading Time Taken Comments Blood Pressure 114/72 12/20/2024 1:31 PM WATERWORKS OPERATOR Pulse 77 12/20/2024 1:31 PM WATERWORKS OPERATOR Temperature 36.9 C (98.5 F) 12/20/2024 1:31 PM WATERWORKS OPERATOR Respiratory Rate 18 08/31/2024 7:27 AM WATERWORKS OPERATOR Oxygen Saturation 97% 12/20/2024 1:31 PM WATERWORKS OPERATOR Inhaled Oxygen Concentration - - Weight 92 kg (202 lb 12.8 oz) 12/20/2024 1:31 PM WATERWORKS OPERATOR Height 163.8 cm (5' 4.5 ) 12/20/2024 1:31 PM WATERWORKS OPERATOR Body Mass Index 34.27 12/20/2024 1:31 PM WATERWORKS OPERATOR Plan of Treatment Not on file Procedures Procedure Name Priority Date/Time Associated Diagnosis Comments DIAGNOSTIC MAMMOGRAM BILATERAL [facility] [place] Schedule Routine, Read Routine (OP Routine) 02/05/2023 10:13 AM CDT Abnormal mammogram COLONOSCOPY Routine 10/06/2022 3:10 PM WATERWORKS OPERATOR PAP WITH REFLEX TO HIGH RISK HPV Routine 07/26/2020 8:46 AM CDT from Last 3 Months or Most Recently Relevant to Health Maintenance Results * Diagnostic Mammogram Bilateral [place] (02/05/2023 10:13 AM CDT) Anatomical Region Laterality Modality Breast Bilateral Mammography 02/05/2023 11:1 3 AM CDT Impressions 02/05/2023 11:19 AM CDT 1. A focal asymmetry with associated subtle architectural distortion in the LEFT outer slightly lower anterior breast. It is unclear if this corresponds to a clustered microcysts on ultrasound. This is at moderate suspicion for malignancy. Stereotactic guided biopsy is recommended. 2. A 0.3 cm group of calcifications in the LEFT upper outer breast are favored to represent milk of calcium. Pending biopsy results, short-term follow-up in 6 months with mammography is recommended. 3. Area of architectural distortion in the RIGHT upper outer breast without definite sonographic correlate is at low suspicion for malignancy. Stereotactic guided biopsy is recommended. The method of initial detection of finding was 3D screening mammography (Sdbt). OVERALL FINAL ASSESSMENT: SUSPICIOUS. BI-RADS Category 4B: Moderate suspicion for malignancy. RECOMMENDATION: 1. Stereotactic biopsy of BOTH breasts, as above. 2. Recommend follow up diagnostic breast imaging in 6 months with LEFT breast mammography pending biopsy results. Dr. Caballero discussed the above findings and recommendations with the patient. She has been scheduled to return to the [facility] for biopsy on 02/24/2023 at 10:45 AM. This facility will contact the referring clinician's office for an order. Dictated by: Hansa Caballero MD The radiology attending physician has personally reviewed this study, and had reviewed and/or edited this written report and agrees with it. Electronically signed by: Lizzette Gonzalez M.D. Narrative 02/05/2023 11:19 AM CDT EXAMINATION: BILATERAL DIGITAL DIAGNOSTIC MAMMOGRAM INCLUDING CAD AND BILATERAL DIGITAL BREAST TOMOSYNTHESIS; BILATERAL BREAST SONOGRAM HISTORY: 57 years old patient who presents for evaluation of findings in the bilateral breasts seen on outside facility imaging. The patient reports remote history of benign RIGHT breast cyst aspiration. The patient reports no new or current breast related complaints. The patient reports a family history of breast cancer, diagnosed in her paternal aunt at age 66. COMPARISON: 12/04/2022 and priors dating back to 2016. TECHNIQUE: Full field digital mammographic views of BOTH breasts were performed, including computer aided detection (CAD) and BILATERAL digital breast tomosynthesis (DBT). Directed ultrasound evaluation of BOTH breasts was performed. BREAST PARENCHYMAL COMPOSITION: There are scattered areas of fibroglandular density. MAMMOGRAM FINDINGS: In the RIGHT upper outer mid breast, there is a subtle area of architectural distortion which persists on the rolled CC lateral view. This partially effaces on the spot compression view. Targeted ultrasound was performed for further evaluation. In the LEFT upper outer posterior breast, there is redemonstration of grouped calcifications measuring 0.3 cm which demonstrates questioned layering on the lateral view, suggestive of milk of calcium. In the LEFT outer slightly lower anterior breast, there is a focal asymmetry with associated architectural distortion measuring 0.8 cm. This persists on spot compression views. In the LEFT outer central anterior breast, there is a focal asymmetry that persists on spot compression views measuring 0.7 cm. In the LEFT outer subareolar breast, there is an oval mass measuring 1.0 cm. SONOGRAM FINDINGS: Targeted ultrasound of the bilateral breasts was performed in the mammographic areas of concern. LEFT breast: - At 3:30 5 cm from the nipple, there is a hypoechoic mass with intervening echogenic septae and circumscribed margins measuring 0.7 x 0.3 x 0.4 cm, favored to represent benign cluster of microcysts. - At 3:00 4 cm from the nipple, there is a hypoechoic mass with intervening echogenic septae and circumscribed margins measuring 0.6 x 0.3 x 0.4 cm, favored to represent benign cluster of microcysts. This likely corresponds to the more lateral focal asymmetry on mammography. - At 3:00 subareolar region, there is an oval anechoic mass with circumscribed margins measuring 0.9 x 0.4 x 0.5 cm, compatible with a benign cyst or branching duct. This corresponds to the mass in the subareolar region on mammography, and the mass that was ultrasounded at the outside institution. This is considered benign. RIGHT breast: There is no focal abnormal solid or cystic lesion suggestive of malignancy in the area of mammographic concern. Procedure Note Lizzette Gonzalez MD - 02/05/2023 EXAMINATION: BILATERAL DIGITAL DIAGNOSTIC MAMMOGRAM INCLUDING CAD AND BILATERAL DIGITAL BREAST TOMOSYNTHESIS; BILATERAL BREAST SONOGRAM HISTORY: 57 years old patient who presents for evaluation of findings in the bilateral breasts seen on outside facility imaging. The patient reports remote history of benign RIGHT breast cyst aspiration. The patient reports no new or current breast related complaints. The patient reports a family history of breast cancer, diagnosed in her paternal aunt at age 66. COMPARISON: 12/04/2022 and priors dating back to 2015. TECHNIQUE: Full field digital mammographic views of BOTH breasts were performed, including computer aided detection (CAD) and BILATERAL digital breast tomosynthesis (DBT). Directed ultrasound evaluation of BOTH breasts was performed. BREAST PARENCHYMAL COMPOSITION: There are scattered areas of fibroglandular density. MAMMOGRAM FINDINGS: In the RIGHT upper outer mid breast, there is a subtle area of architectural distortion which persists on the rolled CC lateral view. This partially effaces on the spot compression view. Targeted ultrasound was performed for further evaluation. In the LEFT upper outer posterior breast, there is redemonstration of grouped calcifications measuring 0.3 cm which demonstrates questioned layering on the lateral view, suggestive of milk of calcium. In the LEFT outer slightly lower anterior breast, there is a focal asymmetry with associated architectural distortion measuring 0.8 cm. This persists on spot compression views. In the LEFT outer central anterior breast, there is a focal asymmetry that persists on spot compression views measuring 0.7 cm. In the LEFT outer subareolar breast, there is an oval mass measuring 1.0 cm. SONOGRAM FINDINGS: Targeted ultrasound of the bilateral breasts was performed in the mammographic areas of concern. LEFT breast: - At 3:30 5 cm from the nipple, there is a hypoechoic mass with intervening echogenic septae and circumscribed margins measuring 0.7 x 0.3 x 0.4 cm, favored to represent benign cluster of microcysts. - At 3:00 4 cm from the nipple, there is a hypoechoic mass with intervening echogenic septae and circumscribed margins measuring 0.6 x 0.3 x 0.4 cm, favored to represent benign cluster of microcysts. This likely corresponds to the more lateral focal asymmetry on mammography. - At 3:00 subareolar region, there is an oval anechoic mass with circumscribed margins measuring 0.9 x 0.4 x 0.5 cm, compatible with a benign cyst or branching duct. This corresponds to the mass in the subareolar region on mammography, and the mass that was ultrasounded at the outside institution. This is considered benign. RIGHT breast: There is no focal abnormal solid or cystic lesion suggestive of malignancy in the area of mammographic concern. IMPRESSION: 1. A focal asymmetry with associated subtle architectural distortion in the LEFT outer slightly lower anterior breast. It is unclear if this corresponds to a clustered microcysts on ultrasound. This is at moderate suspicion for malignancy. Stereotactic guided biopsy is recommended. 2. A 0.3 cm group of calcifications in the LEFT upper outer breast are favored to represent milk of calcium. Pending biopsy results, short-term follow-up in 6 months with mammography is recommended. 3. Area of architectural distortion in the RIGHT upper outer breast without definite sonographic correlate is at low suspicion for malignancy. Stereotactic guided biopsy is recommended. The method of initial detection of finding was 3D screening mammography (Sdbt). OVERALL FINAL ASSESSMENT: SUSPICIOUS. BI-RADS Category 4B: Moderate suspicion for malignancy. RECOMMENDATION: 1. Stereotactic biopsy of BOTH breasts, as above. 2. Recommend follow up diagnostic breast imaging in 6 months with LEFT breast mammography pending biopsy results. Dr. Caballero discussed the above findings and recommendations with the patient. She has been scheduled to return to the [facility] for biopsy on 02/24/2023 at 10:45 AM. This facility will contact the referring clinician's office for an order. Dictated by: Hansa Caballero MD The radiology attending physician has personally reviewed this study, and had reviewed and/or edited this written report and agrees with it. Electronically signed by: Lizzette Gonzalez M.D. Nellie Mendoza NP IMG MAMMO PROCEDURES Final Re sult * Colonoscopy (10/03/2022) Anatomical Region Laterality Modality Other 10/03/2022 Historical Provider ENDOSCOPY PROCEDURES Fatmata l Result * Pap with reflex to High Risk HPV (07/26/2020 8:46 AM CDT) 07/26/2020 8:46 AM CDT 07/26/2020 8:46 AM CDT Narrative 07/30/2020 12:49 PM CDT [facility] Department of Pathology [address] [place] [id number] Final Report with Addendum Patient Name: EDITH CALLOWAY Address: [address] [place] [address] Gender: F : 1965 (Age: 54) Service: Laboratory Location: Lab Hospital #: [id number] Patient Type: Ref Lab Taken: 07/26/2020 Received: 07/26/2020 Accessioned:: 07/27/2020 Reported: 07/30/2020 Physician(s): Kelly Benavides N.P. Diagnosis: Source of Specimen: Imaged Thinprep Pap Test plus HPV - Suction Worker Cytologic Material Specimen Adequacy: - Specimen satisfactory for interpretation; indeterminate endocervical component due to marked atrophy General Category: - Negative for intraepithelial lesion or malignancy BRIAN Vargas(ASCP) Report Electronically Reviewed and Signed Out By BRIAN Vargas(ASC) 07/30/2020 12:49:24 Addenda: HPV RNA Test Interpretation NEGATIVE for types 16, 18, 31, 33, 35, 39, 45, 51, 52, 56, 58, 59, 66 and 68. Test performed utilizing Gen-Probe Aptima assay. BRIAN Guy(ASC) Report Electronically Reviewed and Signed Out By BRIAN Guy(ASC) 07/27/2020 15:58:02 Specimen(s) Received: A: Imaged Thinprep Pap Test plus HPV - Suction Worker Cytologic Material Clinical History: Last Menstrual Period: N/A Menstrual History: Previous Negative Pap Post-menopausal Clinical History Ablation: Novasure The Pap test is a screening test used to aid in the detection of cervical cancer and its precursors. It should not be the sole means by which malignant and premalignant lesions are diagnosed. Both false negative and false positive results may occur. It also has poor sensitivity for the detection of endometrial lesions and should not be used to evaluate suspected endometrial abnormalities. For these reasons it is most important to obtain Pap tests at regular intervals. The performance characteristics of some immunohistochemical stains, fluorescence in-situ hybridization tests and immunophenotyping by flow cytometry cited in this report (if any) were determined by the Surgical Pathology Department at [facility] as part of an ongoing quality project manager program and in compliance with federally mandated regulations drawn from the Clinical Laboratory Improvement Act of 1988 (CLIA '88). Some of these tests rely on the use of analyte specific reagents and are subject to specific labeling requirements by the US Food and Drug Administration. Such diagnostic tests may only be performed in a facility that is certified by the Department of Health and Human Services as a high complexity laboratory under CLIA '88. The FDA has determined that such clearance or approval is not necessary. This test is used for clinical purposes. It should not be regarded as investigational or for research. Nevertheless, federal rules concerning the medical use of analyte specific reagents require that the following disclaimer be attached to the report: This test was developed and its performance characteristics determined by the Surgical Pathology Department [facility]. It has not been cleared or approved by the U. S. Food and Drug Administration. Nellie Mendoza NP LAB CYTOLOGY ORDERABLES Final Result from Last 3 Months or Most Recently Relevant to Health Maintenance Insurance [facility]PPO Address: [address] [address] [facility] [employer]PPO Address: [address] [address] [place] [address] [facility]/PPO Address: [address] [address] [place] [address] Care Teams Spanish Instructor Relationship Specialty Start Date End Date Nellie Mendoza NP [address] [address] PCP - General Family Medicine 10/26/19 Jay Pitts MD [address] [facility] [address] [place] [address] Consulting Physician Neurology 01/28/19
--- OUTSIDE RECORDS SUMMARY | 2025-01-11 07:13 | XMS_ITS | Clinical Summary ---
Author Organization [facility] Address [address] [place] [address] Care Team Providers Care Radiation Control Health Physicist Name Role Phone Jay Pitts MD Unavailable Nellie Mendoza NP Primary Care Provider [phone] Allergies Active Allergy Reactions Criticality Noted Date [...] 02/07/2021 Assessment & Plan (11/14/2023 9:57 AM MAGAZINE PUBLISHER): August 2020. Cough, fever < 102 F, [...] 10/26/2019 Assessment & Plan (08/31/2024 8:25 AM MAGAZINE PUBLISHER): -Recommended: Healthy diet. Avoiding junk food/fast food. [...] not had a hysterectomy (does have a representative phlebotomy services), -Periodic blood pressure monitoring, & bone-density testing [...] needed. Assessment & Plan (10/26/2019 8:11 AM MAGAZINE PUBLISHER): -Recommended: Healthy diet. Avoiding junk food/fast food. [...] 03/25/2019 Assessment & Plan (11/14/2023 9:57 AM MAGAZINE PUBLISHER): Ropinirole 0.25 mg qhs. Risks discussed. Assessment [...] discussed. Assessment & Plan (12/14/2019 1:04 PM MAGAZINE PUBLISHER): Ropinirole 0.25 to 0.5 mg qhs. Risks discussed. Assessment & Plan (03/25/2019 9:27 AM CDT): Ropinirole 0.25 to 0.5 mg qhs. Risks discussed. Moderate persistent asthma without complication 01/28/2019 Assessment & Plan (08/31/2024 8:24 AM MAGAZINE PUBLISHER): Insurance directed, change to advair HFA. Uses [...] prn. Assessment & Plan (10/26/2019 8:11 AM MAGAZINE PUBLISHER): Continue advair, albuterol prn Vitamin B 12 deficiency 01/28/2019 Assessment & Plan (08/31/2024 8:25 AM MAGAZINE PUBLISHER): Check B12. Encouraged to get labs done Assessment & Plan (08/04/2022 8:45 AM CDT): Pt is not sure if she was ever B12 deficient, thinks she may have been told to take it for brain health or energy. Will check B12 level today Multiple sclerosis 10/26/2013 Assessment & Plan (08/31/2024 8:26 AM MAGAZINE PUBLISHER): Stable - managed by neurology. On capoxone. Assessment & Plan (11/14/2023 9:57 AM MAGAZINE PUBLISHER): Minimal intracranial disease including a lesion adjacent [...] spinal cord with contrast to be completed [facility]. Ordered again. Assessment & Plan (06/12/2022 4:56 [...] and cervical spinal cord to be completed [facility]. Previously ordered. Assessment & Plan (08/14/2021 5:48 [...] 2021 Assessment & Plan (12/14/2019 1:04 PM MAGAZINE PUBLISHER): Minimal intracranial disease including a lesion adjacent [...] 09/23/2013 Assessment & Plan (11/14/2023 9:57 AM MAGAZINE PUBLISHER): S/p left frontal meningioma resection Oct 2013 [...] imaging Assessment & Plan (12/14/2019 1:03 PM MAGAZINE PUBLISHER): S/p left frontal meningioma resection Oct 2013 [...] weight loss. Vitamin D deficiency 01/28/2019 019 Encounters Date Type Department Care Team Description 12/20/2024 1:30 PM MAGAZINE PUBLISHER Office Visit [place] [facility] [address] [facility] [address] [address] Jay Pitts MD Multiple sclerosis (HCC) (Primary Dx); Restless leg syndrome; Intracranial meningioma (HCC) 11/03/2024 Telephone [facility] [address] [facility] [address] [place] [address] Sofía Joshi [facility] from Last 3 Months Immunizations Immunization Administration Dates Next Due Influenza, Quadrivalent, Spl it, Intramuscular 07/28/2016,07/19/2015 Influenza, Trivalent, IM (MDV) 4,08/12/2013,07/19/2012,07/28,07/19/2010,07/28/2009 Influenza, Trivalent, Preser vative Free, Intramuscular 08/19/2014,09/07/2013 Influenza, Unspecified 08/07/2024,2021,07/30/2021,07/19,07/19/2019 Margy (J&J) SARS-CoV-2 Vaccination 01/24/2021 Pneumococcal Polysaccharide PPV23 11/12/2006, Td, Unspecified 03/03/2015 Td, adsorbed 11/15/2002 Tdap 08/25/2008 ZOSTER Recombinant 12/05/2022,08/04/2022 Surgical History Surgery Date Site/Laterality Comments APPENDECTOMY Appendectomy OTHER SURGICAL HISTORY Left Meningioma removed BREAST BIOPSY 02/24/2023 Left Medical History Medical History Date Comments Hx Other Medical 1990 Allergies Asthma 1999 Asthma Hx Other Medical 2001 MS Restless legs syndrome Restless leg syndrome; Comments: TWM 06/02/2016 - Family History Medical History Relation Name Comments Arthritis Brother 1 No Known Problems Brother 2 Hypertension Father Hypertension; Hypertension Mother Hypertension; Arthritis Sister Relation Name Status Comments Brother 1 Alive Brother 2 Alive Father Alive Mother Alive Sister Alive Social History Tobacco Use Types Packs/Day Years [...] on file Legal Sex Female 4:52 PM MAGAZINE PUBLISHER Gender Identity Not on file Sexual Orientation Not on file Obstetrics History Last Filed Vital Signs Vital Sign Reading Time Taken Comments Blood Pressure 114/72 12/20/2024 1:31 PM MAGAZINE PUBLISHER Pulse 77 12/20/2024 1:31 PM MAGAZINE PUBLISHER Temperature 36.9 C (98.5 F) 12/20/2024 1:31 PM MAGAZINE PUBLISHER Respiratory Rate 18 08/31/2024 7:27 AM MAGAZINE PUBLISHER Oxygen Saturation 97% 12/20/2024 1:31 PM MAGAZINE PUBLISHER Inhaled Oxygen Concentration - - Weight 92 kg (202 lb 12.8 oz) 12/20/2024 1:31 PM MAGAZINE PUBLISHER Height 163.8 cm (5' 4.5 ) 12/20/2024 1:31 PM MAGAZINE PUBLISHER Body Mass Index 34.27 12/20/2024 1:31 PM MAGAZINE PUBLISHER Plan of Treatment Health Maintenance Due Date Last Done Comments Hepatitis C Screening 1965 Hepatitis B Screening 1983 Pneumococcal vaccine <65 (2 of 2 - PCV) 11/12/2007 11/12/2006, 12/10/1998 Cervical Cancer Screening 07/26/2021 07/26/2020 Breast Cancer Screening-Mammogram 02/06/2024 023, 10/18/2022 Covid-19 Vaccine (2 - 2023-2 5 season) 2024 01/24/2021 DTaP/Tdap/Td Vaccine (3 - Td or Tdap) 03/03/2025 03/03/2015, 08/25/2008, 11/15/2002 Depression Screening 08/31/2025 08/31/2024, 08/11/2023, 08/04/2022, Additional history exists Regular Well Visit/Exam 18-64 08/31/2025, 08/11/2023, 08/04/2022, Additional history exists Colon Cancer Screening-Colonoscopy 10/06/2032 10/06/2022, 10/03/2022, 07/25/2016 Colon Cancer Screening-CT Colonography Discontinued 10/06/2022, 10/03/2022, 07/25/2016 Colon Cancer Screening-DNA Stool Discontinued 10/06/2022, 10/03/2022, 07/25/2016 Colon Cancer Screening-FIT Discontinued 10/06, 10/03/2022, 07/25/2016 Colon Cancer Screening-Sigmoidoscopy Discontinued 10/06/2022, 10/03/2022, 07/25/2016 Zoster Vaccine Completed 12/05/2022, 08/04/2022 Influenza Vaccine Completed 08/07/2024, , 07/30/2021, Additional history exists Procedures Procedure Name Priority Date/Time Associated Diagnosis Comments DIAGNOSTIC MAMMOGRAM BILATERAL W [place] Schedule Routine, Read Routine (OP Routine) 02/05/2023 10:13 AM CDT Abnormal mammogram COLONOSCOPY Routine 10/06/2022 3:10 PM MAGAZINE PUBLISHER PAP WITH REFLEX TO HIGH RISK HPV [...] has been scheduled to return to the [facility] for biopsy on 02/24/2023 at 10:45 AM. [...] has been scheduled to return to the [facility] for biopsy on 02/24/2023 at 10:45 AM. [...] 12:49 PM CDT [facility] Department of Pathology [address] [place] [id number] Final Report with Addendum Patient Name: EDITH CALLOWAY Address: [address] [place], [place] [id number] Gender: F : 1965 (Age: 54) Service: Laboratory Location: Lab Hospital #: [id number] Patient Type: Ref Lab Taken: 07/26/2020 Received: 07/26/2020 Accessioned:: 07/27/2020 Reported: 07/30/2020 Physician(s): Kelly Benavides N.P. Diagnosis: Source of Specimen: Imaged Thinprep Pap Test plus HPV - Public Relations Supervisor Cytologic Material Specimen Adequacy: - Specimen satisfactory for interpretation; indeterminate endocervical component due to marked atrophy General Category: - Negative for intraepithelial lesion or malignancy BRIAN Vargas(ASCP) Report Electronically Reviewed and Signed Out By BRIAN Vargas(ASCP) 07/30/2020 12:49:24 Addenda: HPV RNA Test Interpretation NEGATIVE for types 16, 18, 31, 33, 35, 39, 45, 51, 52, 56, 58, 59, 66 and 68. Test performed utilizing Gen-Probe Aptima assay. BRIAN Guy(ASCP) Report Electronically Reviewed and Signed Out By BRIAN Guy(ASC) 07/27/2020 15:58:02 Specimen(s) Received: A: Imaged Thinprep Pap Test plus HPV - Public Relations Supervisor Cytologic Material Clinical History: Last Menstrual Period: [...] determined by the Surgical Pathology Department at [facility] as part of an ongoing quality assurance coach program and in compliance with federally mandated [...] characteristics determined by the Surgical Pathology Department [facility]. It has not been cleared or approved by the U. S. Food and Drug Administration. Nellie Mendoza NP LAB CYTOLOGY ORDERABLES Final Result from Last 3 Months or Most Recently Relevant to Health Maintenance Insurance [facility] Care Teams Radiation Control Health Physicist Relationship Specialty Start Date End Date Nellie Mendoza NP [address] [address] PCP - General Family Medicine 10/26/19 Jay Pitts MD [address] [address] Consulting Physician Neurology 01/28/19
[2025-01-11 08:05] LABS: Basophils Percent Auto 0.5 % (0.2-1.2); Eosinophils Absolute Auto 0.2 K/mm3 (0-0.3); Eosinophils Percent Auto 2.7 % (0-4.4); Hematocrit 40.5 % (37.0-47.0); Hemoglobin 12.8 g/dL (12.0-15.0); Immature Granulocyte Absolute 0.05 K/mm3 (0.00-0.031); Immature Granulocyte Percent A 0.6 % (0-0.5); Lymphocytes Absolute Auto 2.47 K/mm3 (0.9-3.2); Lymphocytes Percent Auto 30.5 % (18.3-44.2); Mean Corpuscular HGB Conc 31.6 g/dl (32-36); Mean Corpuscular Hemoglobin 28.3 pg (26-34); Mean Corpuscular Volume 89.4 fl (80-100); Mean Platelet Volume 9.6 fl (7.4-10.4); Monocytes Absolute Auto 0.8 K/mm3 (0.1-0.6); Monocytes Percent Auto 9.5 % (2.6-8.5); Neutrophils Absolute Auto 4.6 K/mm3 (1.3-6.7); Neutrophils Percent Auto 56.2 % (45.5-73.1); Platelet Count Result 226 k/mm3 (150-375); Red Blood Count 4.53 M/mm3 (4.2-5.4); Red Cell Distribution Width 12.3 % (11.5-14.5); White Blood Count 8.1 K/mm3 (4.5-10.0)
[2025-01-11 08:15] LABS: Alanine Aminotransferase 14 U/L (6-35); Albumin Level 4.2 g/dL (3.5-5.1); Alkaline Phosphatase 103 U/L (38-126); Anion Gap 7 mmol/L (4-12); Aspartate Amino Transferase 23 U/L (14-36); Bilirubin,Total 0.3 mg/dL (0.2-1.3); Blood Urea Nitrogen 18 mg/dL (7-17); Calcium 9.2 mg/dL (8.4-10.2); Carbon Dioxide 30 mmol/L (22-30); Chloride 103 mmol/L (98-107); Cholesterol 195 mg/dL (0-200); Estimated Glomerular Filt Rate > 60; Glucose 113 mg/dL (65-110); HDL Direct 60 mg/dL; Potassium 4.2 mmol/L (3.4-5.0); Sodium 140 mmol/L (137-145); Triglycerides 80 mg/dL (<150)
[2025-01-11 08:27] LABS: LDL Cholesterol Direct 103 mg/dL
[2025-01-13 03:03] LABS: TSH QUEST 1.86 mIU/L (0.40-4.50)
== END 2025-01-11 07:08 | disposition home or self-care (01) ==
LOC: ANHLAB 07:09
PROVIDERS: PCP Nurse Practitioner Family; Visit Provider Nurse Practitioner Family
DX: E53.8 Deficiency of other specified B group vitamins (principal); Z00.00 Encounter for general adult medical examination without abnormal findings
CPT/HCPCS: 36415; 80053; 80061; 82607; 84439; 84443; 85025

== ENCOUNTER 2025-05-07 17:09 | Emergency (ER) | payer OTHER, SELFPAY ==
--- OUTSIDE RECORDS SUMMARY | 2025-05-07 17:11 | XMS_ITS | Encounter Summary ---
Author Organization [facility] Address 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
--- OUTSIDE RECORDS SUMMARY | 2025-05-07 17:11 | XMS_ITS | Encounter Summary ---
Author Organization [facility] Address [address] [place] [address] Care Team Providers Care Elementary Principal Name Role Phone Jefry Mak MD Primary Care Provider [phone] Encounter Details Date Type Department Care Team (Late st Contact Info) Description 12/15/2006 Orders Only [facility] Internal Medicine [address] [address] Jefry Mak MD [address] [place] [phone] Social History Tobacco Use Types Packs/Day Years Used Date Smoking Tobacco: Never Assessed Comments Unknown Sex and Gender Information Value Date Recorded Sex Assigned at Not on file Legal Sex Female 3:01 AM WAREHOUSE CLERK Gender Identity Not on file Sexual Orientation Not on file documented as of this encounter Plan of Treatment Not on file documented as of this encounter Visit Diagnoses Not on filedocumented in this encounter Care Teams Elementary Principal Relationship Specialty Start Date End Date Jefry Mak MD PCP - General 08/02/08 documented as of this encounter
--- OUTSIDE RECORDS SUMMARY | 2025-05-07 17:11 | XMS_ITS | Encounter Summary ---
Author Organization [facility] Address [address] [place] [address] Care Team Providers Care Dry Wall Sprayer Name Role Phone Jefry Mak MD Primary Care Provider [phone] Encounter Details Date Type Department Care Team (Late st Contact Info) Description 06/20/2005 Outpatient Historical [facility] Internal Medicine [address] [address] Jefry Mak MD [address] [place] [phone] Social History Tobacco Use Types Packs/Day Years Used Date Smoking Tobacco: Never Assessed Comments Unknown Sex and Gender Information Value Date Recorded Sex Assigned at Not on file Legal Sex Female 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
--- OUTSIDE RECORDS SUMMARY | 2025-05-07 17:11 | XMS_ITS | Encounter Summary ---
Author Organization [facility] Address [address] [place] [address] Care Team Providers Care Tire Fabricator Name Role Phone Jefry Mak MD Primary Care Provider [phone] Encounter Details Date Type Department Care Team (Late st Contact Info) Description 10/26/2007 Outpatient Historical [facility] Internal Medicine [address] [address] Jefry Mak MD [address] [place] [phone] Social History Tobacco Use Types Packs/Day Years Used Date Smoking Tobacco: Never Assessed Comments Unknown Sex and Gender Information Value Date Recorded Sex Assigned at Not on file Legal Sex Female 3:01 AM CRYSTAL MOUNTER Gender Identity Not on file Sexual Orientation Not on file documented as of this encounter Plan of Treatment Not on file documented as of this encounter Visit Diagnoses Not on filedocumented in this encounter Care Teams Tire Fabricator Relationship Specialty Start Date End Date Jefry Mak MD PCP - General 08/02/08 documented as of this encounter
--- OUTSIDE RECORDS SUMMARY | 2025-05-07 17:11 | XMS_ITS | Encounter Summary ---
Author Organization [facility] Address [address] [place] [address] Care Team Providers Care Packaging Materials Inspector Name Role Phone Jefry Mak MD Primary Care Provider [phone] Encounter Details Date Type Department Care Team (Late st Contact Info) Description 11/12/2006 Outpatient Historical [facility] Internal Medicine [address] [address] Jefry Mak MD [address] [place] [phone] Social History Tobacco Use Types Packs/Day Years Used Date Smoking Tobacco: Never Assessed Comments Unknown Sex and Gender Information Value Date Recorded Sex Assigned at Not on file Legal Sex Female 3:01 AM PLATE SETTER Gender Identity Not on file Sexual Orientation Not on file documented as of this encounter Plan of Treatment Not on file documented as of this encounter Visit Diagnoses Not on filedocumented in this encounter Care Teams Packaging Materials Inspector Relationship Specialty Start Date End Date Jefry Mak MD PCP - General 08/02/08 documented as of this encounter
--- OUTSIDE RECORDS SUMMARY | 2025-05-07 17:11 | XMS_ITS | Encounter Summary ---
Author Organization [facility] Healthcare Address [address] [place] [address] Care Team Providers Care Phosphatic Fertilizer Supervisor Name Role Phone Brenda Hodges MD Primary Care Provider Reason for Visit * Diagnostic Imaging (Routine) - Closed Specialty Diagnoses / Procedures Referred By Contac t Referred To Contact Procedures Breast Imaging Screening Outside Reference Nellie Mendoza NP Phone: tel: fax: Referral ID Status Reason Start Date Expiration Date Visits Re quested Visits Authorized [id number] Closed 12/16/2022 01/15/2024 1 1 Encounter Details Date Type Department Care Team (Late st Contact Info) Description 12/14/2007 Hospital Encounter [facility] [address] [place] [address] Social History Tobacco Use Types Packs/Day Years [...] file Legal Sex Female 4:52 PM CHILD CARE ASSISTANT Gender Identity Not on file Sexual Orientation Not on file documented as of this encounter Plan of Treatment Not on file documented as of this encounter Procedures Procedure Name Priority Date/Time Associated Diagnosis Comments BREAST IMAGING MG SCREENING OUTSIDE REFERENCE Schedule Routine, Read Routine (OP Routine) 12/14/2007 12:00 AM CHILD CARE ASSISTANT documented in this encounter Results * Breast Imaging Screening Outside Reference (12/14/2007 12:00 AM CHILD CARE ASSISTANT) Impressions [facility] - 12/16/2022 4:09 PM CHILD CARE ASSISTANT These images are for Reference purposes only and have not been reviewed by [facility] Radiology. There will be no report generated by a [facility] Radiologist. Narrative [facility] - 12/16/2022 4:09 PM CHILD CARE ASSISTANT EXAMINATION: Images For Reference Purposes Only us Nellie Mendoza SORTER UPHOLSTERY PARTS IMG MAMMO PROCEDURES Final Re sult [facility] documented in this encounter Visit Diagnoses Not on filedocumented in this encounter Care Teams Phosphatic Fertilizer Supervisor Relationship Specialty Start Date End Date Brenda Hodges MD PCP - General 03/25/07 04/04/08 documented as of this encounter
--- OUTSIDE RECORDS SUMMARY | 2025-05-07 17:11 | XMS_ITS | Encounter Summary ---
Author Organization [facility] Address 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 PHARMACY NUMBER: [phone] SECTION 1: REQUESTED ACTION licasl 10/14/06 at [...] on filedocumented in this encounter Care Teams Biomedical Field Service Engineer Relationship Specialty Start Date End Date Jefry Mak MD PCP - General 08/02/08 documented as of this encounter
--- OUTSIDE RECORDS SUMMARY | 2025-05-07 17:11 | XMS_ITS | Encounter Summary ---
Author Organization [facility] Address 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 LAB ORDERS: Order number: [id number] Test Ordered: INJ-PNEUMOVAX 17828 784.0-HEADACHE discussed topamax, reassess 783.1-ABNORMAL WEIGHT GAIN try med discussed risks of med at length MEDICATIONS: PHENTERMINE HCL ORAL CAPSULE CONVENTIONAL 37.5 MG, 1 Every Day, 30 Dispensed, 1 Fills, status: NEW PRESCRIPTION, 11/12/2006. LAB ORDERS: Order number: [id number] Test Ordered: CBC (INCLUDES DIFF/PLT) 6399 Order number: [id number] Test Ordered: TSH 899 Order number: [id number] Test Ordered: LIPID PANEL 7600 Order number: [id number] Test Ordered: COMPREHENSIVE METABOLIC PANEL W/ GLOMERULAR FILTRATION RATE, ESTIMATED (EGFR) [id number] RETURN VISIT : Patient instructed to return in 2 months. Electronically Signed by: Jefry Mak MD on October * Jefry Mak MD - 03/14/2008 1:33 PM CDT WHO TOOK THE CALL: Jefry Mak M TIME:05:56 pm see office note advise pt to have lab test herbtj 11/13/06 03:47 pm STAFF FOLLOW UP: . lmtcb [place] spoke to pt. Patient said she had additional blood work done in September. She will fax those results here. If you need anything different drawn, just let her know. jrf OK documented in this encounter Plan of Treatment Not on file documented as of this encounter Visit Diagnoses Not on filedocumented in this encounter Care Teams Vendor Relationship Manager Relationship Specialty Start Date End Date Jefry Mak MD PCP - General 08/02/08 documented as of this encounter
--- OUTSIDE RECORDS SUMMARY | 2025-05-07 17:11 | XMS_ITS | Encounter Summary ---
Author Organization [facility] Address 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
--- OUTSIDE RECORDS SUMMARY | 2025-05-07 17:11 | XMS_ITS | Encounter Summary ---
Author Organization [facility] Address 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
--- OUTSIDE RECORDS SUMMARY | 2025-05-07 17:11 | XMS_ITS | Encounter Summary ---
Author Organization [facility] Address [address] [place] [address] Care Team Providers Care Calibration Specialist Name Role Phone Jefry Mak MD Primary Care Provider Encounter Details Date Type Department Care Team (Late st Contact Info) Description 01/22/[address] 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
--- OUTSIDE RECORDS SUMMARY | 2025-05-07 17:11 | XMS_ITS | Encounter Summary ---
Author Organization [facility] Address 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
--- OUTSIDE RECORDS SUMMARY | 2025-05-07 17:11 | XMS_ITS | Encounter Summary ---
Author Organization [facility] Address 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
--- OUTSIDE RECORDS SUMMARY | 2025-05-07 17:11 | XMS_ITS | Encounter Summary ---
Author Organization [facility] Healthcare Address [address] [place] [address] Care Team Providers Care Chocolate Finisher Operator Name Role Phone Brenda Hodges MD Primary Care Provider Reason for Visit * Diagnostic Imaging (Routine) - Closed Specialty Diagnoses / Procedures Referred By Contac t Referred To Contact Procedures Breast Imaging Screening Outside Reference Nellie Mendoza NP Phone: tel: fax: Referral ID Status Reason Start Date Expiration Date Visits Re quested Visits Authorized [id number] Closed 12/16/2022 01/15/2024 1 1 Encounter Details Date Type Department Care Team (Late st Contact Info) Description 03/04/2010 Hospital Encounter [facility]iology [facility] [address] [place] [address] Social History Tobacco Use Types Packs/Day Years [...] on file Legal Sex Female 4:52 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 There will be no report generated by a [facility] Radiologist. Narrative RAD[facility] - 12/16/2022 4:12 PM GREASER AND OILER EXAMINATION: Images For Reference Purposes Only us Nellie Mendoza ACID CONCENTRATOR IMG MAMMO PROCEDURES Final Re sult [facility] documented in this encounter Visit Diagnoses Not on filedocumented in this encounter Care Teams Chocolate Finisher Operator Relationship Specialty Start Date End Date Brenda Hodges MD PCP - General 11/30/08 07/07/10 documented as of this encounter
--- OUTSIDE RECORDS SUMMARY | 2025-05-07 17:11 | XMS_ITS | Encounter Summary ---
Author Organization [facility] Address 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
--- OUTSIDE RECORDS SUMMARY | 2025-05-07 17:11 | XMS_ITS | Encounter Summary ---
Author Organization [facility] Address [address] [place] [address] Care Team Providers Care Boiler Blower Name Role Phone Jefry Mak MD Primary Care Provider [phone] Encounter Details Date Type Department Care Team (Late st Contact Info) Description 06/24/2005 Outpatient Historical [facility] Internal Medicine [address] [address] Jefry Mak MD [address] [place] [phone] Social History Tobacco Use Types Packs/Day Years Used Date Smoking Tobacco: Never Assessed Comments Unknown Sex and Gender Information Value Date Recorded Sex Assigned at Not on file Legal Sex Female 3:01 AM ORACLE WMS CONSULTANT Gender Identity Not on file Sexual [...] on filedocumented in this encounter Care Teams Boiler Blower Relationship Specialty Start Date End Date Jefry Mak MD PCP - General 08/02/08 documented as of this encounter
--- OUTSIDE RECORDS SUMMARY | 2025-05-07 17:11 | XMS_ITS | Encounter Summary ---
Author Organization [facility] Healthcare Address [address] [place] [address] Care Team Providers Care Tax Compliance Manager Name Role Phone Brenad Hodges MD Primary Care Provider Reason for Visit * Diagnostic Imaging (Routine) - Closed Specialty Diagnoses / Procedures Referred By Contreena t Referred To Contact Procedures Breast Imaging Screening Outside Reference Nellie Mendoza NP Phone: tel: fax: Referral ID Status Reason Start Date Expiration Date Visits Re quested Visits Authorized [id number] Closed 12/16/2022 01/15/2024 1 1 Encounter Details Date Type Department Care Team (Late st Contact Info) Description 06/05/2016 Hospital Encounter [facility] Radiology [facility] [address] [place] [address] Social History Tobacco Use Types Packs/Day Years [...] on file Legal Sex Female 4:52 PM 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 There will be no report generated by a [facility] Radiologist. Narrative RAD[facility] - 12/16/2022 4:08 PM INSPECTOR PENETRANT EXAMINATION: Images For Reference Purposes Only us Nellie Mendoza PIECER IMG MAMMO PROCEDURES Final Re sult [facility] documented in this encounter Visit Diagnoses Not on filedocumented in this encounter Care Teams Tax Compliance Manager Relationship Specialty Start Date End Date Brenda Hodges MD PCP - General 06/02/16 01/15/17 documented as of this encounter
--- OUTSIDE RECORDS SUMMARY | 2025-05-07 17:11 | XMS_ITS | Encounter Summary ---
Author Organization [facility] Address 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
--- OUTSIDE RECORDS SUMMARY | 2025-05-07 17:11 | XMS_ITS | Encounter Summary ---
Author Organization [facility] Healthcare Address [address] [place] [address] Care Team Providers Care Instantizer Operator Name Role Phone Brenda Hodges MD Primary Care Provider Reason for Visit * Diagnostic Imaging (Routine) - Closed Specialty Diagnoses / Procedures Referred By Contac t Referred To Contact Procedures Breast Imaging US Outside Reference Nellie Mendoza NP Phone: tel: fax: Referral ID Status Reason Start Date Expiration Date Visits Re quested Visits Authorized [id number] Closed 12/16/2022 01/15/2024 1 1 Encounter Details Date Type Department Care Team (Late st Contact Info) Description 11/18/2007 12:05 AM PLASTICS SCIENTIST Hospital Encounter [facility] [address] [place] [id number] Social History Tobacco Use Types Packs/Day Years [...] on file Legal Sex Female 4:52 PM PLASTICS SCIENTIST Gender Identity Not on file Sexual Orientation Not on file documented as of this encounter Plan of Treatment Not on file documented as of this encounter Procedures Procedure Name Priority Date/Time Associated Diagnosis Comments BREAST IMAGING US OUTSIDE REFERENCE Routine 11/18/2007 12:05 AM PLASTICS SCIENTIST documented in this encounter Results * Breast Imaging US Outside Reference (11/18/2007 12:05 AM PLASTICS SCIENTIST) Impressions [facility] - 12/16/2022 4:25 PM PLASTICS SCIENTIST These images are for Reference purposes only and have not been reviewed by [facility] Radiology. There will be no report generated by a [facility] Radiologist. Narrative RAD_M[facility]MO[facility] - 12/16/2022 4:25 PM PLASTICS SCIENTIST EXAMINATION: Images For Reference Purposes Only us Nellie Mendoza DISTRIBUTION TECH IMG MAMMO PROCEDURES Final Re sult [facility] documented in this encounter Visit Diagnoses Not on filedocumented in this encounter Care Teams Instantizer Operator Relationship Specialty Start Date End Date Brenda Hodges MD PCP - General 03/25/07 04/04/08 documented as of this encounter
--- OUTSIDE RECORDS SUMMARY | 2025-05-07 17:11 | XMS_ITS | Encounter Summary ---
Author Organization [facility] Healthcare Address [address] [place] [address] Care Team Providers Care Mechanical Engineering Director Name Role Phone Brenda Hodges MD Primary Care Provider Reason for Visit * Diagnostic Imaging (Routine) - Closed Specialty Diagnoses / Procedures Referred By Contac t Referred To Contact Procedures Breast Imaging Diagnostic Outside Reference Nellie Mendoza NP Phone: tel: fax: Referral ID Status Reason Start Date Expiration Date Visits Re quested Visits Authorized [id number] Closed 12/16/2022 01/15/2024 1 1 Encounter Details Date Type Department Care Team (Late st Contact Info) Description 11/18/2007 Hospital Encounter [facility]iology [facility] [address] [place] [address] Social History Tobacco Use Types Packs/Day Years [...] on file Legal 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 Female 4:52 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 Gender Identity Not on file Sexual Orientation Not on file documented as of this encounter Plan of Treatment Not on file documented as of this encounter Procedures Procedure Name Priority Date/Time Associated Diagnosis Comments BREAST IMAGING MG DIAGNOSTIC OUTSIDE REFERENCE Routine 11/18/2007 12:00 AM SENIOR 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 documented in this encounter Results * Breast Imaging Diagnostic Outside Reference (11/18/2007 12:00 AM SENIOR 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) Impressions [facility] - 12/16/2022 4:25 PM SENIOR 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 These images are for Reference purposes only and have not been reviewed by [facility] Radiology. There will be no report generated by a [facility] Radiologist. Narrative RAD_M[facility]MO[facility] - 12/16/2022 4:25 PM SENIOR 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 EXAMINATION: Images For Reference Purposes Only us Nellie Mendoza FLOOR AND WALL APPLIER LIQUID IMG MAMMO PROCEDURES Final Re sult [facility] documented in this encounter Visit Diagnoses Not on filedocumented in this encounter Care Teams Mechanical Engineering Director Relationship Specialty Start Date End Date Brenda Hodges MD PCP - General 03/25/07 04/04/08 documented as of this encounter
--- OUTSIDE RECORDS SUMMARY | 2025-05-07 17:11 | XMS_ITS | Clinical Summary ---
Author Organization [facility] Address [address] [place] [address] Care Team Providers Care Cafeteria Supervisor Name Role Phone Jay Pitts MD Unavailable [phone] Nellie Mendoza NP Primary Care Provider [phone] Allergies Active Allergy Reactions Criticality Noted Date [...] 02/07/2021 Assessment & Plan (11/14/2023 9:57 AM LOCKSTITCH ZIPPER SETTER): August 2020. Cough, fever < 102 F, [...] 10/26/2019 Assessment & Plan (08/31/2024 8:25 AM LOCKSTITCH ZIPPER SETTER): -Recommended: Healthy diet. Avoiding junk food/fast food. 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 Assessment & Plan (10/26/2019 8:11 AM LOCKSTITCH ZIPPER SETTER): -Recommended: Healthy diet. Avoiding junk food/fast food. [...] 03/25/2019 Assessment & Plan (11/14/2023 9:57 AM LOCKSTITCH ZIPPER SETTER): Ropinirole 0.25 mg qhs. Risks discussed. Assessment [...] discussed. Assessment & Plan (12/14/2019 1:04 PM LOCKSTITCH ZIPPER SETTER): Ropinirole 0.25 to 0.5 mg qhs. Risks discussed. Assessment & Plan (03/25/2019 9:27 AM CDT): Ropinirole 0.25 to 0.5 mg qhs. Risks discussed. Moderate persistent asthma without complication 01/28/2019 Assessment & Plan (08/31/2024 8:24 AM LOCKSTITCH ZIPPER SETTER): Insurance directed, change to advair HFA. Uses [...] prn. Assessment & Plan (10/26/2019 8:11 AM LOCKSTITCH ZIPPER SETTER): Continue advair, albuterol prn Vitamin B 12 deficiency 01/28/2019 Assessment & Plan (08/31/2024 8:25 AM LOCKSTITCH ZIPPER SETTER): Check B12. Encouraged to get labs done Assessment & Plan (08/04/2022 8:45 AM CDT): Pt is not sure if she was ever B12 deficient, thinks she may have been told to take it for brain health or energy. Will check B12 level today Multiple sclerosis 10/26/2013 Assessment & Plan (08/31/2024 8:26 AM LOCKSTITCH ZIPPER SETTER): Stable - managed by neurology. On capoxone. Assessment & Plan (11/14/2023 9:57 AM LOCKSTITCH ZIPPER SETTER): Minimal intracranial disease including a lesion adjacent [...] spinal cord with contrast to be completed [facility]. Ordered again. Assessment & Plan (06/12/2022 [...] and cervical spinal cord to be completed [facility]. Previously ordered. Assessment & Plan (08/14/2021 [...] 2021 Assessment & Plan (12/14/2019 1:04 PM LOCKSTITCH ZIPPER SETTER): Minimal intracranial disease including a lesion adjacent [...] 09/23/2013 Assessment & Plan (11/14/2023 9:57 AM LOCKSTITCH ZIPPER SETTER): S/p left frontal meningioma resection Oct 2013 [...] imaging Assessment & Plan (12/14/2019 1:03 PM LOCKSTITCH ZIPPER SETTER): S/p left frontal meningioma resection Oct 2013 [...] vative Free, Intramuscular 08/19/2014,09/07/2013 Influenza, Unspecified 08/07/2024,2021,07/30/2021,07/19,07/19/2019 [employer] ([employer]) SARS-CoV-2 Vaccination 01/24/2021 Pneumococcal Polysaccharide PPV23 11/12/2006, Td, Unspecified 03/03/2015 Td, adsorbed 11/15/2002 Tdap 08/25/2008 ZOSTER Recombinant 12/05/2022,08/04/2022 Surgical History Surgery Date Site/Laterality Comments APPENDECTOMY Appendectomy OTHER SURGICAL HISTORY Left Meningioma removed BREAST BIOPSY 02/24/2023 Left Medical History Medical History Date Comments Hx Other Medical 1991 Allergies Asthma 1999 Asthma Hx Other Medical [...] on file Legal Sex Female 4:52 PM LOCKSTITCH ZIPPER SETTER Gender Identity Not on file Sexual Orientation Not on file Obstetrics History Last Filed Vital Signs Vital Sign Reading Time Taken Comments Blood Pressure 114/72 12/20/2024 1:31 PM LOCKSTITCH ZIPPER SETTER Pulse 77 12/20/2024 1:31 PM LOCKSTITCH ZIPPER SETTER Temperature 36.9 C (98.5 F) 12/20/2024 1:31 PM LOCKSTITCH ZIPPER SETTER Respiratory Rate 18 08/31/2024 7:27 AM LOCKSTITCH ZIPPER SETTER Oxygen Saturation 97% 12/20/2024 1:31 PM LOCKSTITCH ZIPPER SETTER Inhaled Oxygen Concentration - - Weight 92 kg (202 lb 12.8 oz) 12/20/2024 1:31 PM LOCKSTITCH ZIPPER SETTER Height 163.8 cm (5' 4.5) 12/20/2024 1:31 PM LOCKSTITCH ZIPPER SETTER Body Mass Index 34.27 12/20/2024 1:31 PM LOCKSTITCH ZIPPER SETTER Plan of Treatment Health Maintenance Due Date [...] Abnormal mammogram COLONOSCOPY Routine 10/06/2022 3:10 PM LOCKSTITCH ZIPPER SETTER PAP WITH REFLEX TO HIGH RISK HPV [...] has been scheduled to return to the [facility] for biopsy on 02/24/2023 at 10:45 AM. [...] has been scheduled to return to the [facility] for biopsy on 02/24/2023 at 10:45 AM. [...] 12:49 PM CDT [facility] Department of Pathology [address] [place] [id number] Final Report with Addendum Patient Name: EDITH CALLOWAY Address: [address] [place] [address] Gender: F : 1965 (Age: 54) Service: Laboratory Location: Lab [facility] #: [id number] Patient Type: Ref Lab Taken: 07/26/2020 Received: 07/26/2020 Accessioned:: 07/27/2020 Reported: 07/30/2020 Physician(s): Kelly Benavides N.P. Diagnosis: Source of Specimen: Imaged Thinprep Pap Test plus HPV - Axle Turner Cytologic Material Specimen Adequacy: - Specimen satisfactory [...] 59, 66 and 68. Test performed utilizing [employer] Aptima assay. BRIAN Guy(ASC) Report Electronically Reviewed and Signed Out By BRIAN Guy(ASC) 07/27/2020 15:58:02 Specimen(s) Received: A: Imaged Thinprep Pap Test plus HPV - Axle Turner Cytologic Material Clinical History: Last Menstrual Period: [...] by the Surgical Pathology Department at [facility] as part of an ongoing corporate quality engineer program and in compliance with federally mandated [...] characteristics determined by the Surgical Pathology Department [facility]. It has not been cleared or approved by the U. S. Food and Drug Administration. Nellie Mendoza NP LAB CYTOLOGY ORDERABLES Final Result from Last 3 Months or Most Recently Relevant to Health Maintenance Insurance [facility] Care Teams Cafeteria Supervisor Relationship Specialty Start Date End Date Nellie Mendoza NP [address] [facility] [address] [place] [address] PCP - General Family Medicine 10/26/19 Jay Pitts MD [address] [facility] [address] [place] [address] Consulting Physician Neurology 01/28/19
--- OUTSIDE RECORDS SUMMARY | 2025-05-07 17:11 | XMS_ITS | Encounter Summary ---
Author Organization [facility] Address [address] [place] [address] Care Team Providers Care Wastewater Plant Civil Engineer Name Role Phone Jefry Mak MD Primary Care Provider [phone] Encounter Details Date Type Department Care Team (Late st Contact Info) Description 10/26/2007 Orders Only [facility] Internal Medicine [address] [address] Jefry Mak MD [address] [place] [phone] Social History Tobacco Use Types Packs/Day Years Used Date Smoking Tobacco: Never Assessed Comments Unknown Sex and Gender Information Value Date Recorded Sex Assigned at Not on file Legal Sex Female 3:01 AM GLASS TECHNICIAN Gender Identity Not on file Sexual [...] interval for mammogram as recommended by the [employer] and ACOG, importance of regular [...] on filedocumented in this encounter Care Teams Wastewater Plant Civil Engineer Relationship Specialty Start Date End Date Jefry Mak MD PCP - General 08/02/08 documented as of this encounter
--- OUTSIDE RECORDS SUMMARY | 2025-05-07 17:11 | XMS_ITS | Clinical Summary ---
Author Organization [facility] Address [address] [place] [address] Care Team Providers Care Collection Clerk Name Role Phone Jefry Mak MD Primary Care Provider [phone] Allergies Active Allergy Reactions Criticality Noted Date [...] on file Legal Sex Female 3:01 AM CORN GRINDER Gender Identity Not on file Sexual Orientation [...] 4:11 PM CDT Height 165.1 cm (5' 5) 12/25/2014 4:11 PM CDT Body Mass Index 28.29 12/25/2014 4:11 PM CDT Plan of Treatment Health Maintenance Due Date Last Done Comments HEPATITIS B VACCINES (1 of 3 - 19+ 3-dose series) 1984 HPV/Cotest (21-29) 1986 HPV/Cotest (30-65) 1995 BREAST CANCER SCREENING 2005 COLORECTAL SCREENING 2010 Colorectal Cancer Screening 2010 FIT-DNA Q 3 years 2010 FIT/FOBT Q 1 year 2010 Flex Sig/CT Colonography Q 5 years 2010 CERVICAL CANCER SCREENING 05/19/2014 PAP SMEAR 05/19/2014 05/19/2011 ZOSTER VACCINE (1 of 2) 2015 DTAP/TDAP/TD VACCINES (2 - T d or Tdap) 08/25/2018 08/25/2008, 11/15/2002 Preventative Visit- Commercial 10/19/2024 0 10/26/2019, 12/25/2014, 12/30/2013, Additional history exists INFLUENZA VACCINE (#1) 2025 , 07/19/2015, 08/19/2014, Additional history exists Insurance [employer] PPO [id number] Care Teams Collection Clerk Relationship Specialty Start Date End Date Jefry Mak MD PCP - General 08/02/08
--- OUTSIDE RECORDS SUMMARY | 2025-05-07 17:11 | XMS_ITS | Encounter Summary ---
Author Organization [facility] Address [address] [place] [address] Care Team Providers Care Business Reporting Developer Name Role Phone Jefry Mak MD Primary Care Provider Encounter Details Date Type Department Care Team (Late st Contact Info) Description 10/26/2007 Outpatient Historical [facility] Internal Medicine [address] [address] Jefry Mak MD [address] [place] [phone] Social History Tobacco Use Types Packs/Day Years Used Date Smoking Tobacco: Never Assessed Comments Unknown Sex and Gender Information Value Date Recorded Sex Assigned at Not on file Legal Sex Female 3:01 AM SALES OFFICE MANAGER Gender Identity Not on file Sexual Orientation Not on file documented as of this encounter Plan of Treatment Not on file documented as of this encounter Visit Diagnoses Not on filedocumented in this encounter Care Teams Business Reporting Developer Relationship Specialty Start Date End Date Jefry Mak MD PCP - General 08/02/08 documented as of this encounter
--- OUTSIDE RECORDS SUMMARY | 2025-05-07 17:11 | XMS_ITS | Encounter Summary ---
Author Organization [facility] Address [address] [place] [address] Care Team Providers Care Microsoft Dynamics Ax Developer Name Role Phone Jefry Mak MD Primary Care Provider [phone] Encounter Details Date Type Department Care Team (Late st Contact Info) Description 10/13/2007 Orders Only [facility] Internal Medicine [address] [address] Jefry Mak MD [address] [place] [phone] Social History Tobacco Use Types Packs/Day Years Used Date Smoking Tobacco: Never Assessed Comments Unknown Sex and Gender Information Value Date Recorded Sex Assigned at Not on file Legal Sex Female 3:01 AM CAREER COUNSELOR Gender Identity Not on file Sexual Orientation Not on file documented as of this encounter Progress Notes * Jefry Mak MD - 03/02/2008 1:11 PM CDT TIME:12:24 pm PATIENT`S HOME PHONE: PATIENT`S WORK PHONE: PATIENT`S INSURANCE: [place] [employer] WHO TOOK THE CALL: Henna Negron C GENERAL INFORMATION WHO CALLED: Pharmacy called.[phone] SECTION 1: REQUESTED ACTION baldev 10/13/07 at [...] on filedocumented in this encounter Care Teams Microsoft Dynamics Ax Developer Relationship Specialty Start Date End Date Jefry Mak MD PCP - General 08/02/08 documented as of this encounter
--- OUTSIDE RECORDS SUMMARY | 2025-05-07 17:11 | XMS_ITS | Encounter Summary ---
Author Organization [facility] Healthcare Address [address] [place] [address] Care Team Providers Care Medical Historian Name Role Phone Brenda Hodges MD Primary Care Provider Reason for Visit * Diagnostic Imaging (Routine) - Closed Specialty Diagnoses / Procedures Referred By Contac t Referred To Contact Procedures Breast Imaging Screening Outside Reference Nellie Mendoza NP Phone: tel: fax: Referral ID Status Reason Start Date Expiration Date Visits Re quested Visits Authorized [id number] Closed 12/16/2022 01/15/2024 1 1 Encounter Details Date Type Department Care Team (Late st Contact Info) Description 12/16/2012 Hospital Encounter [facility] Radiology [facility] [address] [place] [id number] Social History Tobacco Use Types Packs/Day Years [...] on file Legal Sex Female 4:52 PM STUDENT LIFE VICE PRESIDENT Gender Identity Not on file Sexual Orientation Not on file documented as of this encounter Plan of Treatment Not on file documented as of this encounter Procedures Procedure Name Priority Date/Time Associated Diagnosis Comments BREAST IMAGING MG SCREENING OUTSIDE REFERENCE Schedule Routine, Read Routine (OP Routine) 12/16/2012 12:00 AM STUDENT LIFE VICE PRESIDENT documented in this encounter Results * Breast Imaging Screening Outside Reference (12/16/2012 12:00 AM STUDENT LIFE VICE PRESIDENT) Impressions [facility] - 12/16/2022 4:09 PM STUDENT LIFE VICE PRESIDENT These images are for Reference purposes only and have not been reviewed by [facility] Radiology. There will be no report generated by a [facility] Radiologist. Narrative [facility] - 12/16/2022 4:09 PM STUDENT LIFE VICE PRESIDENT EXAMINATION: Images For Reference Purposes Only us Nellie Mendoza CROSSING TENDER IMG MAMMO PROCEDURES Final Re sult [facility] documented in this encounter Visit Diagnoses Not on filedocumented in this encounter Care Teams Medical Historian Relationship Specialty Start Date End Date Brenda Hodges MD PCP - General 07/16/11 06/01/16 documented as of this encounter
--- OUTSIDE RECORDS SUMMARY | 2025-05-07 17:11 | XMS_ITS | Encounter Summary ---
Author Organization [facility] Address [address] [place] [address] Care Team Providers Care Dish Maker Name Role Phone Jefry Mak MD Primary Care Provider Encounter Details Date Type Department Care Team (Late st Contact Info) Description 05/12/2007 Orders Only [facility] Internal Medicine [address] [address] Jefry Mak MD [address] [place] [phone] Social History Tobacco Use Types Packs/Day Years Used Date Smoking Tobacco: Never Assessed Comments Unknown Sex and Gender Information Value Date Recorded Sex Assigned at Not on file Legal Sex Female 3:01 AM NETEZZA DEVELOPER Gender Identity Not on file Sexual Orientation Not on file documented as of this encounter Plan of Treatment Not on file documented as of this encounter Visit Diagnoses Not on filedocumented in this encounter Care Teams Dish Maker Relationship Specialty Start Date End Date Jefry Mak MD PCP - General 08/02/08 documented as of this encounter
--- OUTSIDE RECORDS SUMMARY | 2025-05-07 17:11 | XMS_ITS | Encounter Summary ---
Author Organization [facility] Address [address] [place] [address] Care Team Providers Care Manager Discovery Name Role Phone Jefry Mak MD Primary Care Provider [phone] Encounter Details Date Type Department Care Team (Late st Contact Info) Description 11/13/2006 Orders Only [facility] Internal Medicine [address] [address] Jefry Mak MD [address] [place] [phone] Social History Tobacco Use Types Packs/Day Years Used Date Smoking Tobacco: Never Assessed Comments Unknown Sex and Gender Information Value Date Recorded Sex Assigned at Not on file Legal Sex Female 3:01 AM LIQUOR GALLERY OPERATOR Gender Identity Not on file Sexual Orientation Not on file documented as of this encounter Progress Notes * Jefry Mak MD - 03/14/2008 2:27 PM CDT TIME:11:41 am PATIENT`S HOME PHONE: PATIENT`S WORK PHONE: PATIENT`S INSURANCE: [place] [employer] WHO TOOK THE CALL: La Ervin J documented in this encounter Plan of Treatment Not on file documented as of this encounter Visit Diagnoses Not on filedocumented in this encounter Care Teams Manager Discovery Relationship Specialty Start Date End Date Jefry Mak MD PCP - General 08/02/08 documented as of this encounter
--- OUTSIDE RECORDS SUMMARY | 2025-05-07 17:11 | XMS_ITS | Encounter Summary ---
Author Organization [facility] Address [address] [place] [address] Care Team Providers Care Marzipan Molder Name Role Phone Jefry Mak MD Primary Care Provider [phone] Encounter Details Date Type Department Care Team (Late st Contact Info) Description 05/12/2005 Outpatient Historical [facility] Internal Medicine [address] [address] Jefry Mak MD [address] [place] [phone] Social History Tobacco Use Types Packs/Day Years Used Date Smoking Tobacco: Never Assessed Comments Unknown Sex and Gender Information Value Date Recorded Sex Assigned at Not on file Legal Sex Female 3:01 AM GAS MAIN FITTER Gender Identity Not on file Sexual Orientation [...] on filedocumented in this encounter Care Teams Marzipan Molder Relationship Specialty Start Date End Date Jefry Mak MD PCP - General 10/15/08 documented as of this encounter
--- OUTSIDE RECORDS SUMMARY | 2025-05-07 17:11 | XMS_ITS | Encounter Summary ---
Author Organization [facility] Address [address] [place] [address] Care Team Providers Care Orthophoto Tech/Draftsman Name Role Phone Jefry Mak MD Primary Care Provider [phone] Encounter Details Date Type Department Care Team (Late st Contact Info) Description 11/29/2007 Orders Only [facility] Internal Medicine [address] [address] Jefry Mak MD [address] [place] [phone] Social History Tobacco Use Types Packs/Day Years Used Date Smoking Tobacco: Never Assessed Comments Unknown Sex and Gender Information Value Date Recorded Sex Assigned at Not on file Legal Sex Female 3:01 AM NEW GRAD RN Gender Identity Not on file Sexual Orientation Not on file documented as of this encounter Progress Notes * Jefry Mak MD - 03/01/2008 12:13 PM CDT TIME:04:53 pm PATIENT`S HOME PHONE: PATIENT`S WORK PHONE: PATIENT`S INSURANCE: [place] [employer] [facility] WHO TOOK THE CALL: Caitlin Saenz R GENERAL INFORMATION PHARMACY NUMBER: [phone] SECTION 1: REQUESTED ACTION berta 11/29/07 at [...] on filedocumented in this encounter Care Teams Orthophoto Tech/Draftsman Relationship Specialty Start Date End Date Jefry Mak MD PCP - General 08/02/08 documented as of this encounter
--- OUTSIDE RECORDS SUMMARY | 2025-05-07 17:12 | XMS_ITS | Encounter Summary ---
Author Organization [facility] Address [address] [place] [address] Care Team Providers Care Painter Set Name Role Phone Jefry Mak MD Primary Care Provider [phone] Encounter Details Date Type Department Care Team (Late st Contact Info) Description 11/07/2004 Outpatient Historical [facility] Internal Medicine [address] [address] Jefry Mak MD [address] [place] [phone] Social History Tobacco Use Types Packs/Day Years Used Date Smoking Tobacco: Never Assessed Comments Unknown Sex and Gender Information Value Date Recorded Sex Assigned at Not on file Legal Sex Female 3:01 AM STORE LEAD Gender Identity Not on file Sexual Orientation Not on file documented as of this encounter Last Filed Vital Signs Vital Sign Reading Time Taken Comments Blood Pressure 110/70 11/07/2004 3:15 PM STORE LEAD Pulse - - Temperature 36.7 C (98 F) 11/07/2004 3:15 PM STORE LEAD Respiratory Rate - - Oxygen Saturation - - Inhaled Oxygen Concentration - - Weight 77.1 kg (170 lb) 11/07/2004 3:15 PM STORE LEAD Height - - Body Mass Index - - documented in this encounter Plan of Treatment Not on file documented as of this encounter Visit Diagnoses Not on filedocumented in this encounter Care Teams Painter Set Relationship Specialty Start Date End Date Jefry Mak MD PCP - General 08/02/08 documented as of this encounter
--- OUTSIDE RECORDS SUMMARY | 2025-05-07 17:12 | XMS_ITS | Encounter Summary ---
Author Organization [facility] Address [address] [place] [address] Care Team Providers Care Portal Administrator Name Role Phone Jefry Mak MD Primary Care Provider Encounter Details Date Type Department Care Team (Late st Contact Info) Description 11/07/2003 Outpatient Historical [facility] Internal Medicine [address] [address] Riccardo Simon MD [address] [place] [phone] Social History Tobacco Use Types Packs/Day Years Used Date Smoking Tobacco: Never Assessed Comments Unknown Sex and Gender Information Value Date Recorded Sex Assigned at Not on file Legal Sex Female 3:01 AM INSULATION CUPOLA OPERATOR Gender Identity Not on file Sexual Orientation Not on file documented as of this encounter Last Filed Vital Signs Vital Sign Reading Time Taken Comments Blood Pressure 102/70 11/07/2003 4:00 PM INSULATION CUPOLA OPERATOR Pulse - - Temperature 36.2 C (97.1 F) 11/07/2003 4:00 PM INSULATION CUPOLA OPERATOR Respiratory Rate - - Oxygen Saturation - - Inhaled Oxygen Concentration - - Weight 66.2 kg (146 lb) 11/07/2003 4:00 PM INSULATION CUPOLA OPERATOR Height - - Body Mass Index - - documented in this encounter Plan of Treatment Not on file documented as of this encounter Visit Diagnoses Not on filedocumented in this encounter Care Teams Portal Administrator Relationship Specialty Start Date End Date Jefry Mak MD PCP - General 08/02/08 documented as of this encounter
--- OUTSIDE RECORDS SUMMARY | 2025-05-07 17:12 | XMS_ITS | Referral Summary ---
Author Organization [facility] Address [address] [place] [address] Care Team Providers Care Plater Hot Dip Name Role Phone Jay Pitts MD Unavailable Nellie Mendoza NP Primary Care Provider [phone] Allergies Active Allergy Reactions Criticality Noted Date [...] 02/07/2021 Assessment & Plan (11/14/2023 9:57 AM CARDIOLOGY MANAGER): August 2020. Cough, fever < 102 F, [...] 10/26/2019 Assessment & Plan (08/31/2024 8:25 AM CARDIOLOGY MANAGER): -Recommended: Healthy diet. Avoiding junk food/fast food. 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 Assessment & Plan (10/26/2019 8:11 AM CARDIOLOGY MANAGER): -Recommended: Healthy diet. Avoiding junk food/fast food. [...] 03/25/2019 Assessment & Plan (11/14/2023 9:57 AM CARDIOLOGY MANAGER): Ropinirole 0.25 mg qhs. Risks discussed. Assessment [...] discussed. Assessment & Plan (12/14/2019 1:04 PM CARDIOLOGY MANAGER): Ropinirole 0.25 to 0.5 mg qhs. Risks discussed. Assessment & Plan (03/25/2019 9:27 AM CDT): Ropinirole 0.25 to 0.5 mg qhs. Risks discussed. Moderate persistent asthma without complication 01/28/2019 Assessment & Plan (08/31/2024 8:24 AM CARDIOLOGY MANAGER): Insurance directed, change to advair HFA. Uses [...] prn. Assessment & Plan (10/26/2019 8:11 AM CARDIOLOGY MANAGER): Continue advair, albuterol prn Vitamin B 12 deficiency 01/28/2019 Assessment & Plan (08/31/2024 8:25 AM CARDIOLOGY MANAGER): Check B12. Encouraged to get labs done Assessment & Plan (08/04/2022 8:45 AM CDT): Pt is not sure if she was ever B12 deficient, thinks she may have been told to take it for brain health or energy. Will check B12 level today Multiple sclerosis 10/26/2013 Assessment & Plan (08/31/2024 8:26 AM CARDIOLOGY MANAGER): Stable - managed by neurology. On capoxone. Assessment & Plan (11/14/2023 9:57 AM CARDIOLOGY MANAGER): Minimal intracranial disease including a lesion adjacent [...] spinal cord with contrast to be completed [facility]. Ordered again. Assessment & Plan (06/12/2022 4:56 [...] and cervical spinal cord to be completed [facility]. Previously ordered. Assessment & Plan (08/14/2021 5:48 [...] 2021 Assessment & Plan (12/14/2019 1:04 PM CARDIOLOGY MANAGER): Minimal intracranial disease including a lesion adjacent [...] 09/23/2013 Assessment & Plan (11/14/2023 9:57 AM CARDIOLOGY MANAGER): S/p left frontal meningioma resection Oct 2013 [...] imaging Assessment & Plan (12/14/2019 1:03 PM CARDIOLOGY MANAGER): S/p left frontal meningioma resection Oct 2013 [...] vative Free, Intramuscular 08/19/2014,09/07/2013 Influenza, Unspecified 08/07/2024,2021,07/30/2021,07/19,07/19/2019 [employer] SARS-CoV-2 Vaccination 01/24/2021 Pneumococcal Polysaccharide PPV23 [...] on file Legal Sex Female 4:52 PM CARDIOLOGY MANAGER Gender Identity Not on file Sexual Orientation Not on file Last Filed Vital Signs Vital Sign Reading Time Taken Comments Blood Pressure 114/72 12/20/2024 1:31 PM CARDIOLOGY MANAGER Pulse 77 12/20/2024 1:31 PM CARDIOLOGY MANAGER Temperature 36.9 C (98.5 F) 12/20/2024 1:31 PM CARDIOLOGY MANAGER Respiratory Rate 18 08/31/2024 7:27 AM CARDIOLOGY MANAGER Oxygen Saturation 97% 12/20/2024 1:31 PM CARDIOLOGY MANAGER Inhaled Oxygen Concentration - - Weight 92 kg (202 lb 12.8 oz) 12/20/2024 1:31 PM CARDIOLOGY MANAGER Height 163.8 cm (5' 4.5) 12/20/2024 1:31 PM CARDIOLOGY MANAGER Body Mass Index 34.27 12/20/2024 1:31 PM CARDIOLOGY MANAGER Plan of Treatment Not on file Procedures Procedure Name Priority Date/Time Associated Diagnosis Comments DIAGNOSTIC MAMMOGRAM BILATERAL W REMINGTON Schedule Routine, Read Routine (OP Routine) 02/05/2023 10:13 AM CDT Abnormal mammogram COLONOSCOPY Routine 10/06/2022 3:10 PM CARDIOLOGY MANAGER PAP WITH REFLEX TO HIGH RISK HPV [...] has been scheduled to return to the [facility] for biopsy on 02/24/2023 at 10:45 [...] has been scheduled to return to the [facility] for biopsy on 02/24/2023 at 10:45 [...] (10/03/2022) Anatomical Region Laterality Modality Other 10/03/2022 [facility] Provider ENDOSCOPY PROCEDURES Fatmata l Result * Pap with reflex to High Risk HPV (07/26/2020 8:46 AM CDT) 07/26/2020 8:46 AM CDT 07/26/2020 8:46 AM CDT Narrative 07/30/2020 12:49 PM CDT [facility] Department of Pathology [address] [place] [id number] Final Report with Addendum Patient Name: EDITH CALLOWAY Address: [address] [place] [address] Gender: F : 1965 (Age: 54) Service: Laboratory Location: Lab [facility] #: [id number] Patient Type: Ref Lab Taken: 07/26/2020 Received: 07/26/2020 Accessioned:: 07/27/2020 Reported: 07/30/2020 Physician(s): Kelly Benavides N.P. Diagnosis: Source of Specimen: Imaged Thinprep Pap Test plus HPV - [employer] Cytologic Material Specimen Adequacy: - Specimen satisfactory for interpretation; indeterminate endocervical component due to marked atrophy General Category: - Negative for intraepithelial lesion or malignancy BRIAN Vargas(ASCP) Report Electronically Reviewed and Signed Out By ELIDIA VargasASCP) 07/30/2020 12:49:24 Addenda: HPV RNA Test Interpretation NEGATIVE for types 16, 18, 31, 33, 35, 39, 45, 51, 52, 56, 58, 59, 66 and 68. Test performed utilizing Gen-Bio[employer] Aptima assay. BRIAN Guy(ASCP) Report Electronically Reviewed and Signed Out By ELIDIA GuyASCP) 07/27/2020 15:58:02 Specimen(s) Received: A: Imaged Thinprep Pap Test plus HPV - [employer] Cytologic Material Clinical History: Last Menstrual Period: [...] determined by the Surgical Pathology Department at [facility] as part of an ongoing senior software quality engineer program and in compliance with [...] characteristics determined by the Surgical Pathology Department [facility]. It has not been cleared or approved by the U. S. Food and Drug Administration. Nellie Mendoza NP LAB CYTOLOGY ORDERABLES Final Result from Last 3 Months or Most Recently Relevant to Health Maintenance Insurance [facility] Care Teams Plater Hot Dip Relationship Specialty Start Date End Date Nellie Mendoza NP [address] [facility] [address] [place] [address] PCP - General Family Medicine 10/26/19 Jay Pitts MD [address] [facility] [address] [place] [address] Consulting Physician Neurology 01/28/19
[2025-05-07 17:16] VITALS: BP 145/81; PULSE 75; RESP 16; TEMP 37.3; O2SAT 98
--- NOTE | 2025-05-07 17:18 | ED_ITS ---
HPI - Extremity Injury (Lower) General Chief Complaint: Extremity Injury, Lower Stated Complaint: Left Knee Injury Time Seen by Provider: 05/07/25 17:21 Source: patient Mode of arrival: ambulatory Limitations: no limitations History of Present Illness HPI Narrative: 59 y/o female presented for c/o left knee pain for one week. Onset after hiking in [place]. pain is mostly to inner aspect of knee. States she had to purchase a cane while on vacation due to the pain. Also has a knee support sleeve she wears at times. Rates pain 3/10 at rest and up to 10/10 with weight bearing, straightening, or rotating movements. Has taken ibuprofen. Denies numbness, tingling, weakness, erythema or warmth. Related Data Home Medications ?Medication ?Instructions ?Recorded ?Confirmed ?Last Taken ?Type fluticasone 250 mcg-salmeterol 50 1 inh inhalation BID 01/21/22 10/03/22 Unknown History mcg/dose blistr powdr for inhalation (Wixela Inhub) glatiramer 40 mg/mL subcutaneous 40 mg subcut 3XW 01/21/22 10/03/22 Unknown History syringe (Copaxone) modafinil 200 mg tablet 200 mg PO BID 01/21/22 10/03/22 Unknown History montelukast 10 mg tablet 10 mg PO DAILY 01/21/22 10/03/22 Unknown History fexofenadine 180 mg tablet 180 mg PO DAILY 09/25/22 10/03/22 10/03/22 History albuterol 11/06/23 Unknown History albuterol sulfate 90 mcg/actuation 2 inh inhalation Q4-6H PRN 05/07/25 Unknown History breath activated powder inhaler shortness of breath or wheezing Allergies Allergy/AdvReac Type Severity Reaction Status Date / Time hydrocodone AdvReac Severe N/V Verified 05/07/25 17:28 erythromycin base AdvReac Unknown DIARRHEA Verified 05/07/25 17:28 Review of Systems Review of Systems: CONSTITUTIONAL: Denies body aches, fever, chills EYES: Denies visual changes ENT: Denies rhinorrhea, congestion CARDIOVASCULAR: Denies chest pain, palpitations, or edema. RESPIRATORY: Denies cough or dyspnea. SKIN: Denies rash, itching, or wounds. MUSCULOSKELETAL: reports Left knee pain back pain, joint pain, or myalgia. NEUROLOGIC: Denies headache, numbness, tingling, or weakness. All systems reviewed & are unremarkable except as noted in HPI and below PMFSH Past Medical History Medical History (Updated 05/07/25 @ 17:36 by Imelda Vicente APRN) Meningioma, cerebral removal benign 2013 [place] Multiple sclerosis Asthma Surgical History Surgical History (Updated 11/06/23 @ 18:44 by Lupe Anton NP) History of endometrial ablation Hx of appendectomy Social History Social History Smoking status: Never smoker Alcohol intake: never Substance use type: does not use Living arrangements: with family Spiritual care concerns: No Comments At time of signature, I have reviewed and agree with nursing past medical, surgical, social and family history unless otherwise noted. Please see nursing chart for further information. There is no relevant family history pertinent to the presenting complaint Exam Narrative: GENERAL: Well-appearing, well-nourished, and in no acute distress. CHEST: Speaks in full sentences. No respiratory distress. HEART: Regular rate and rhythm. Normal and equal peripheral pulses. EXTREMITIES: Patient is able to bear weight and ambulate with pain to the left knee reported. decreased ROM with full extension due to pain, endorses mild medial knee pain with internal and external rotation. Tender with palpation to posterior and medial aspects of knee. No tenderness to palpation of the patella, no effusion or ballottement. No tenderness over the infrapatellar tendon, proximal fibular head or quadriceps. No bruising, erythema or warmth. Distal motor and neurovascular status intact. SKIN: Warm, dry, no rash. NEURO: Alert and oriented x3. PSYCH: Normal mood and affect Course Course Emergency Course: Patient is aware of diagnosis, understands and agrees to treatment plan. Anticipatory guidance given. Patient agrees to follow-up as directed and is aw are of reasons to seek care at the emergency department. Portions of this record may have been created with voice recognition software Level of Care: Express Care Visit Vital Signs Vital signs: Reviewed MDM - Extremity Injury (Lower) MDM Narrative Medical decision making narrative: Discussed physical exam findings. shared decision making, patient declined x- ray at this time. pt has a knee support sleeve at home. 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 Advised supportive measures and signs/symptoms to go to the ER. Pt is appropriate for outpt treatment and f/u. Differential Diagnosis Differential diagnosis: Likely other (osteoarthritis, patella dislocation, patellar tendonitis, tendon rupture, gout, bakers cyst, septic bursitis, dvt, tibial plateau fracture) Discharge Plan Discharge Clinical Impression: Acute pain of left knee Patient Disposition: Home Condition: Stable Instructions: Antibiotic Form, Knee Pain (ED) Additional Instructions: Rest. Avoid excessive walking or standing for long periods elevate the left leg; bear weight as tolerated. Continue with the cane as needed. Apply ice 15-20 minute intervals several times a day Keep it wrapped with DIOMEDES or use a soft knee splint Motrin 800mg every 8 hours after completing steroid Tylenol 1000mg every 8 hours as needed Follow up with your primary care provider and automation controls specialist go to the ER for worsening symptoms or concerns Patient Language: Maltese Prescriptions: New methylprednisolone [Medrol (Jhonatan)] 4 mg tablets,dose pack See Rx Instructions .ROUTE .COMPLEX Qty: 21 0RF Rx Instructions: orally per package directions No Action albuterol sulfate 90 mcg/actuation aerosol powdr breath activated 2 inh inhalation Q4-6H PRN (Reason: shortness of breath or wheezing) albuterol ipratropium bromide 0.02 % solution 2.5 ml inhalation QID PRN (Reason: shortness of breath or wheezing) Qty: 62.5 0RF albuterol sulfate 2.5 mg /3 mL (0.083 %) solution for nebulization 2.5 mg inhalation Q6H Qty: 75 0RF fluticasone propion-salmeterol [Wixela Inhub] 250-50 mcg/dose blister with device 1 inh INHALATION BID modafinil 200 mg tablet 200 mg PO BID montelukast 10 mg tablet 10 mg PO DAILY glatiramer [Copaxone] 40 mg/mL syringe 40 mg SUBCUT 3XW fexofenadine [Yolis] 180 mg Tablet 180 mg PO DAILY Follow-up/Referrals: Jamison Ocampo MD [Physician] - Kelly,MIKI Vaca [Primary Care Provider] - Time of Disposition: 17:34
== END 2025-05-07 17:39 | disposition home or self-care (01) ==
PROVIDERS: Emergency Provider Nurse Practitioner Family; PCP Nurse Practitioner Family
DX: M25.562 Pain in left knee (principal); G35 Multiple sclerosis; J45.909 Unspecified asthma, uncomplicated; Z86.011 Personal history of benign neoplasm of the brain
CPT/HCPCS: 99213; G0463

== ENCOUNTER 2025-08-22 06:46 | Outpatient (CLI) | payer OTHER, SELFPAY ==
--- OUTSIDE RECORDS SUMMARY | 2007-11-18 | XMS_ITS | Encounter Summary ---
Author Organization [facility] Healthcare Address [address] [place] [address] Care Team Providers Care Tool And Cutter Grinder Name Role Phone Brenda Hodges MD Primary Care Provider Reason for Visit * Diagnostic Imaging (Routine) - Closed Specialty Diagnoses / Procedures Referred By Contac t Referred To Contact Procedures Breast Imaging Diagnostic Outside Reference Nellie Mendoza NP Phone: tel: fax: Referral ID Status Reason Start Date Expiration Date Visits Re quested Visits Authorized [id number] Closed 12/16/2022 01/15/2024 1 1 Encounter Details Date Type Department Care Team (Late st Contact Info) Description 11/18/2007 Hospital Encounter [facility] [address] [place] [phone] Social History Tobacco Use Types Packs/Day Years Used Date Smoking Tobacco: Never Smokeless Tobacco: Never Alcohol Use Standard Drinks/Week Comments No 0 (1 standard drink = 0.6 oz pur e alcohol) PHQ-2 Answer Date Recorded PHQ-2 Total Score (If total score is 3 or more points, staff should administer the PHQ-9) 2 05/25/2025 Comments No Sex and Gender Information Value Date Recorded Sex Assigned at Not on file Legal Sex Female 4:52 PM MGMT SPECIALIST Gender Identity Not on file Sexual Orientation Not on file documented as of this encounter Plan of Treatment Not on file documented as of this encounter Procedures Procedure Name Priority Date/Time Associated Diagnosis Comments BREAST IMAGING MG DIAGNOSTIC OUTSIDE REFERENCE Routine 11/18/2007 12:00 AM MGMT SPECIALIST documented in this encounter Results * Breast Imaging Diagnostic Outside Reference (11/18/2007 12:00 AM MGMT SPECIALIST) Impressions [facility] - 12/16/2022 4:25 PM MGMT SPECIALIST These images are for Reference purposes only and have not been reviewed by [facility] Radiology. There will be no report generated by a [facility] Radiologist. Narrative [facility] - 12/16/2022 4:25 PM MGMT SPECIALIST EXAMINATION: Images For Reference Purposes Only us Nellie Mendoza CURTAIN ROLLER ASSEMBLER IMG MAMMO PROCEDURES Final Re sult [facility] documented in this encounter Visit Diagnoses Not on filedocumented in this encounter Care Teams Tool And Cutter Grinder Relationship Specialty Start Date End Date Brenda Hodges MD PCP - General 03/25/07 04/04/08 documented as of this encounter
--- OUTSIDE RECORDS SUMMARY | 2007-11-18 00:05 | XMS_ITS | Encounter Summary ---
Author Organization [facility] Healthcare Address [address] [place] [address] Care Team Providers Care Insurance Attorney Name Role Phone Brenda Hodges MD Primary Care Provider Reason for Visit * Diagnostic Imaging (Routine) - Closed Specialty Diagnoses / Procedures Referred By Contac t Referred To Contact Procedures Breast Imaging US Outside Reference Nellie Mendoza NP Phone: tel: fax: Referral ID Status Reason Start Date Expiration Date Visits Re quested Visits Authorized [id number] Closed 12/16/2022 01/15/2024 1 1 Encounter Details Date Type Department Care Team (Late st Contact Info) Description 11/18/2007 12:05 AM MANAGER BUSINESS MANAGEMENT Hospital Encounter [facility] Radiology [facility] [address] [place] [phone] Social History Tobacco Use Types Packs/Day Years [...] on file Legal Sex Female 4:52 PM MANAGER BUSINESS MANAGEMENT Gender Identity Not on file Sexual Orientation Not on file documented as of this encounter Plan of Treatment Not on file documented as of this encounter Procedures Procedure Name Priority Date/Time Associated Diagnosis Comments BREAST IMAGING US OUTSIDE REFERENCE Routine 11/18/2007 12:05 AM MANAGER BUSINESS MANAGEMENT documented in this encounter Results * Breast Imaging US Outside Reference (11/18/2007 12:05 AM MANAGER BUSINESS MANAGEMENT) Impressions [facility] - 12/16/2022 4:25 PM MANAGER BUSINESS MANAGEMENT These images are for Reference purposes only and have not been reviewed by [facility] Radiology. There will be no report generated by a [facility] Radiologist. Narrative [facility] - 12/16/2022 4:25 PM MANAGER BUSINESS MANAGEMENT EXAMINATION: Images For Reference Purposes Only us Nellie Mendoza EMT INTERMEDIATE IMG MAMMO PROCEDURES Final Re sult [facility] documented in this encounter Visit Diagnoses Not on filedocumented in this encounter Care Teams Insurance Attorney Relationship Specialty Start Date End Date Brenda Hodges MD PCP - General 03/25/07 04/04/08 documented as of this encounter
--- OUTSIDE RECORDS SUMMARY | 2007-12-14 | XMS_ITS | Encounter Summary ---
Author Organization [facility] Healthcare Address [address] [place] [address] Care Team Providers Care Machine Clerical Verifier Name Role Phone Brenda Hodges MD Primary Care Provider Reason for Visit * Diagnostic Imaging (Routine) - Closed Specialty Diagnoses / Procedures Referred By Contac t Referred To Contact Procedures Breast Imaging Screening Outside Reference Nellie Mendoza NP Phone: tel: fax: Referral ID Status Reason Start Date Expiration Date Visits Re quested Visits Authorized [id number] Closed 12/16/2022 01/15/2024 1 1 Encounter Details Date Type Department Care Team (Late st Contact Info) Description 12/14/2007 Hospital Encounter [facility] Radiology [facility] [address] [place] [phone] Social History Tobacco Use Types Packs/Day Years [...] on file Legal Sex Female 4:52 PM FREEZER WORKER Gender Identity Not on file Sexual Orientation Not on file documented as of this encounter Plan of Treatment Not on file documented as of this encounter Procedures Procedure Name Priority Date/Time Associated Diagnosis Comments BREAST IMAGING MG SCREENING OUTSIDE REFERENCE Schedule Routine, Read Routine (OP Routine) 12/14/2007 12:00 AM FREEZER WORKER documented in this encounter Results * Breast Imaging Screening Outside Reference (12/14/2007 12:00 AM FREEZER WORKER) Impressions [facility] - 12/16/2022 4:09 PM FREEZER WORKER These images are for Reference purposes only and have not been reviewed by [facility] Radiology. There will be no report generated by a [facility] Radiologist. Narrative [facility] - 12/16/2022 4:09 PM FREEZER WORKER EXAMINATION: Images For Reference Purposes Only us Nellie Mendoza AUTOMATIC LUMP MAKING MACHINE TENDER IMG MAMMO PROCEDURES Final Re sult [facility] documented in this encounter Visit Diagnoses Not on filedocumented in this encounter Care Teams Machine Clerical Verifier Relationship Specialty Start Date End Date Brenda Hodges MD PCP - General 03/25/07 04/04/08 documented as of this encounter
--- OUTSIDE RECORDS SUMMARY | 2010-03-03 23:00 | XMS_ITS | Encounter Summary ---
Author Organization [facility] Healthcare Address [address] [place] [address] Care Team Providers Care Felt Machine Mechanic Name Role Phone Brenda Hodges MD Primary Care Provider Reason for Visit * Diagnostic Imaging (Routine) - Closed Specialty Diagnoses / Procedures Referred By Contreena t Referred To Contact Procedures Breast Imaging Screening Outside Reference Nellie Mendoza NP Phone: tel: fax: Referral ID Status Reason Start Date Expiration Date Visits Re quested Visits Authorized [id number] Closed 12/16/2022 01/15/2024 1 1 Encounter Details Date Type Department Care Team (Late st Contact Info) Description 03/04/2010 Hospital Encounter [facility] [address] [place] [phone] Social History Tobacco Use Types Packs/Day Years [...] on file Legal Sex Female 4:52 PM CHILD NURSE Gender Identity Not on file Sexual Orientation Not on file documented as of this encounter Plan of Treatment Not on file documented as of this encounter Procedures Procedure Name Priority Date/Time Associated Diagnosis Comments BREAST IMAGING MG SCREENING OUTSIDE REFERENCE Schedule Routine, Read Routine (OP Routine) 03/04/2010 12:00 AM CDT documented in this encounter Results * Breast Imaging Screening Outside Reference (03/04/2010 12:00 AM CDT) Impressions [facility] - 12/16/2022 4:12 PM CHILD NURSE These images are for Reference purposes only and have not been reviewed by [facility] Radiology. There will be no report generated by a [facility] Radiologist. Narrative [facility] - 12/16/2022 4:12 PM CHILD NURSE EXAMINATION: Images For Reference Purposes Only us Nellie Mendoza RUBBER TESTER IMG MAMMO PROCEDURES Final Re sult [facility] documented in this encounter Visit Diagnoses Not on filedocumented in this encounter Care Teams Felt Machine Mechanic Relationship Specialty Start Date End Date Brenda Hodges MD PCP - General 11/30/08 07/07/10 documented as of this encounter
--- OUTSIDE RECORDS SUMMARY | 2012-12-16 | XMS_ITS | Encounter Summary ---
Author Organization [facility] Healthcare Address [address] [place] [address] Care Team Providers Care Occupational Therapist Aide Name Role Phone Brenda Hodges MD Primary Care Provider Reason for Visit * Diagnostic Imaging (Routine) - Closed Specialty Diagnoses / Procedures Referred By Contac t Referred To Contact Procedures Breast Imaging Screening Outside Reference Nellie Mendoza NP Phone: tel: fax: Referral ID Status Reason Start Date Expiration Date Visits Re quested Visits Authorized [id number] Closed 12/16/2022 01/15/2024 1 1 Encounter Details Date Type Department Care Team (Late st Contact Info) Description 12/16/2012 Hospital Encounter [facility] [address] [place] [id number] Social History Tobacco Use Types Packs/Day Years [...] on file Legal Sex Female 4:52 PM BATTERY STACKER Gender Identity Not on file Sexual Orientation Not on file documented as of this encounter Plan of Treatment Not on file documented as of this encounter Procedures Procedure Name Priority Date/Time Associated Diagnosis Comments BREAST IMAGING MG SCREENING OUTSIDE REFERENCE Schedule Routine, Read Routine (OP Routine) 12/16/2012 12:00 AM BATTERY STACKER documented in this encounter Results * Breast Imaging Screening Outside Reference (12/16/2012 12:00 AM BATTERY STACKER) Impressions [facility] - 12/16/2022 4:09 PM BATTERY STACKER These images are for Reference purposes only and have not been reviewed by [facility]. There will be no report generated by a [facility] Radiologist. Narrative [facility] - 12/16/2022 4:09 PM BATTERY STACKER EXAMINATION: Images For Reference Purposes Only us Nellie Mendoza CAR CONDITIONER IMG MAMMO PROCEDURES Final Re sult [facility] documented in this encounter Visit Diagnoses Not on filedocumented in this encounter Care Teams Occupational Therapist Aide Relationship Specialty Start Date End Date Brenda Hodges MD PCP - General 07/16/11 06/01/16 documented as of this encounter
--- OUTSIDE RECORDS SUMMARY | 2016-06-04 23:00 | XMS_ITS | Encounter Summary ---
Author Organization [facility] Healthcare Address [address] [place] [address] Care Team Providers Care Process Project Engineer Name Role Phone Brenda Hodges MD Primary Care Provider Reason for Visit * Diagnostic Imaging (Routine) - Closed Specialty Diagnoses / Procedures Referred By Contreena t Referred To Contact Procedures Breast Imaging Screening Outside Reference Nellie Mendoza NP Phone: tel: fax: Referral ID Status Reason Start Date Expiration Date Visits Re quested Visits Authorized [id number] Closed 12/16/2022 01/15/2024 1 1 Encounter Details Date Type Department Care Team (Late st Contact Info) Description 06/05/2016 Hospital Encounter [facility]) [address] [place] [id number] Social History Tobacco Use Types Packs/Day Years [...] on file Legal Sex Female 4:52 PM PEDIATRIC DIETICIAN Gender Identity Not on file Sexual Orientation Not on file documented as of this encounter Plan of Treatment Not on file documented as of this encounter Procedures Procedure Name Priority Date/Time Associated Diagnosis Comments BREAST IMAGING MG SCREENING OUTSIDE REFERENCE Schedule Routine, Read Routine (OP Routine) 06/05/2016 12:00 AM CDT documented in this encounter Results * Breast Imaging Screening Outside Reference (06/05/2016 12:00 AM CDT) Impressions [facility] - 12/16/2022 4:08 PM PEDIATRIC DIETICIAN These images are for Reference purposes only and have not been reviewed by [facility]. There will be no report generated by a [facility] Radiologist. Narrative [facility] - 12/16/2022 4:08 PM PEDIATRIC DIETICIAN EXAMINATION: Images For Reference Purposes Only us Nellie Mendoza PHYSICIAN IN PRIVATE PRACTICE IMG MAMMO PROCEDURES Final Re sult [facility] documented in this encounter Visit Diagnoses Not on filedocumented in this encounter Care Teams Process Project Engineer Relationship Specialty Start Date End Date Brenda Hodges MD PCP - General 06/02/16 01/15/17 documented as of this encounter
--- NOTE | ~2025-08-22 | CT_ITS ---
EXAMINATION: CT_LELTCWO_CT DATE: 08/22/2025 07:37 INDICATION: Left knee osteoarthritis for preoperative planning TECHNIQUE: High resolution computed tomography (CT) of the left lower extremity from the hip through the ankle was performed without intravenous contrast. Additional sagittal and coronal reconstructions were performed. Automated exposure control and iterative reconstruction technique were employed. The dose- length product was 1842.87 mGy-cm. COMPARISON: 06/14/2025 FINDINGS: Bone alignment is normal. No fracture or osteonecrosis. Polyarticular osteoarthritis throughout the pelvis and left lower limb, severe at the patellofemoral compartment of the left knee, moderate severity at the medial compartment of the left knee, the first metatarsophalangeal, second and third tarsal metatarsal and lateral naviculocuneiform articulations and mild at the bilateral sacroiliac joints, lateral and patellofemoral compartments of the left knee and multiple additional joints at the left foot and ankle. Small left knee joint effusion. No effusion at the left hip or ankle joints. Mildly prominent but still normal-sized likely reactive left inguinal lymphadenopathy measuring up to 10 mm in maximal short axis diameter. IMPRESSION: 1. Polyarticular osteoarthritis, severe at the patellofemoral and moderate at the medial compartments of the left knee. Reviewed, dictated and finalized at location [facility] IMPRESSION: 1. Polyarticular osteoarthritis, severe at the patellofemoral and moderate at t he medial compartments of the left knee.
--- OUTSIDE RECORDS SUMMARY | 2025-08-22 06:49 | XMS_ITS | Encounter Summary ---
Author Organization [facility] Address [address] [place] [address] Care Team Providers Care Ep Technologist Name Role Phone Jefry Mak MD Primary Care Provider [phone] Encounter Details Date Type Department Care Team (Late st Contact Info) Description 12/15/2006 Orders Only [facility] Internal Medicine [address] [address] Jefry Mak MD [address] [place] [phone] Social History Tobacco Use Types Packs/Day Years Used Date Smoking Tobacco: Never Assessed Comments Unknown Sex and Gender Information Value Date Recorded Sex Assigned at Not on file Legal Sex Female 3:01 AM BRAND DESIGNER Gender Identity Not on file Sexual Orientation Not on file documented as of this encounter Plan of Treatment Not on file documented as of this encounter Visit Diagnoses Not on filedocumented in this encounter Care Teams Ep Technologist Relationship Specialty Start Date End Date Jefry Mak MD PCP - General 08/02/08 documented as of this encounter
--- OUTSIDE RECORDS SUMMARY | 2025-08-22 06:49 | XMS_ITS | Encounter Summary ---
Author Organization [facility] Address [address] [place] [address] Care Team Providers Care Net Solutions Architect Name Role Phone Jefry Mak MD Primary Care Provider Encounter Details Date Type Department Care Team (Late st Contact Info) Description 05/12/2007 Orders Only [facility] Internal Medicine [address] [address] Jefry Mak MD [address] [place] [phone] Social History Tobacco Use Types Packs/Day Years Used Date Smoking Tobacco: Never Assessed Comments Unknown Sex and Gender Information Value Date Recorded Sex Assigned at Not on file Legal Sex Female 3:01 AM ENGRAVER SEALS Gender Identity Not on file Sexual Orientation Not on file documented as of this encounter Plan of Treatment Not on file documented as of this encounter Visit Diagnoses Not on filedocumented in this encounter Care Teams Net Solutions Architect Relationship Specialty Start Date End Date Jefry Mak MD PCP - General 08/02/08 documented as of this encounter
--- OUTSIDE RECORDS SUMMARY | 2025-08-22 06:49 | XMS_ITS | Encounter Summary ---
Author Organization [facility] Address [address] [place] [address] Care Team Providers Care Conservation Agent Name Role Phone Jefry Mak MD Primary Care Provider [phone] Encounter Details Date Type Department Care Team (Late st Contact Info) Description 06/20/2005 Outpatient Historical [facility] Internal Medicine [address] [address] Jefry Mak MD [address] [place] [phone] Social History Tobacco Use Types Packs/Day Years Used Date Smoking Tobacco: Never Assessed Comments Unknown Sex and Gender Information Value Date Recorded Sex Assigned at Not on file Legal Sex Female 3:01 AM STENCIL TYPIST Gender Identity Not on file Sexual Orientation [...] on filedocumented in this encounter Care Teams Conservation Agent Relationship Specialty Start Date End Date Jefry Mak MD PCP - General 08/02/08 documented as of this encounter
--- OUTSIDE RECORDS SUMMARY | 2025-08-22 06:49 | XMS_ITS | Encounter Summary ---
Author Organization [facility] Address [address] [place] [address] Care Team Providers Care Finance Clerk Name Role Phone Jefry Mak MD Primary Care Provider Encounter Details Date Type Department Care Team (Late st Contact Info) Description 07/22/[address] [facility] Internal Medicine [address] [address] Jefry Mak MD [address] [place] [phone] Social History Tobacco Use Types Packs/Day Years Used Date Smoking Tobacco: Never Assessed Comments Unknown Sex and Gender Information Value Date Recorded Sex Assigned at Not on file Legal Sex Female 3:01 AM DISTRIBUTION SUPERINTENDENT Gender Identity Not on file Sexual Orientation Not on file documented as of this encounter Plan of Treatment Not on file documented as of this encounter Visit Diagnoses Not on filedocumented in this encounter Care Teams Finance Clerk Relationship Specialty Start Date End Date Jefry Mak MD PCP - General 08/02/08 documented as of this encounter
--- OUTSIDE RECORDS SUMMARY | 2025-08-22 06:49 | XMS_ITS | Encounter Summary ---
Author Organization [facility] Address [address] [place] [address] Care Team Providers Care Wire Saw Operator Name Role Phone Jefry Mak MD Primary Care Provider [phone] Encounter Details Date Type Department Care Team (Late st Contact Info) Description 05/12/2005 Outpatient Historical [facility] Internal Medicine [address] [address] Jefry Mak MD [address] [place] [phone] Social History Tobacco Use Types Packs/Day Years Used Date Smoking Tobacco: Never Assessed Comments Unknown Sex and Gender Information Value Date Recorded Sex Assigned at Not on file Legal Sex Female 3:01 AM ORACLE DBA Gender Identity Not on file Sexual Orientation [...] on filedocumented in this encounter Care Teams Wire Saw Operator Relationship Specialty Start Date End Date Jefry Mak MD PCP - General 10/15/08 documented as of this encounter
--- OUTSIDE RECORDS SUMMARY | 2025-08-22 06:49 | XMS_ITS | Encounter Summary ---
Author Organization [facility] Address [address] [place] [address] Care Team Providers Care Biofuels Plant Construction Worker Name Role Phone Jefry Mak MD Primary Care Provider Encounter Details Date Type Department Care Team (Late st Contact Info) Description 01/22/2006 Orders Only [facility] Internal Medicine [address] [address] Jefry Mak MD [address] [place] [phone] Social History Tobacco Use Types Packs/Day Years Used Date Smoking Tobacco: Never Assessed Comments Unknown Sex and Gender Information Value Date Recorded Sex Assigned at Not on file Legal Sex Female 3:01 AM ASSISTANT FOOD SERVICE DIRECTOR Gender Identity Not on file Sexual Orientation Not on file documented as of this encounter Plan of Treatment Not on file documented as of this encounter Visit Diagnoses Not on filedocumented in this encounter Care Teams Biofuels Plant Construction Worker Relationship Specialty Start Date End Date Jefry Mak MD PCP - General 08/02/08 documented as of this encounter
--- OUTSIDE RECORDS SUMMARY | 2025-08-22 06:49 | XMS_ITS | Clinical Summary ---
Author Organization [facility] Address [address] [place] [address] Care Team Providers Care School Cafeteria Cook Head Name Role Phone Jefry Mak MD Primary Care Provider [phone] Allergies Active Allergy Reactions Criticality Noted Date [...] on file Legal Sex Female 3:01 AM CONCHE LOADER AND UNLOADER Gender Identity Not on file Sexual [...] 08/19/2014, Additional history exists Insurance [employer] PPO [id number] Care Teams School Cafeteria Cook Head Relationship Specialty Start Date End Date Jefry Mak MD PCP - General 08/02/08
--- OUTSIDE RECORDS SUMMARY | 2025-08-22 06:49 | XMS_ITS | Encounter Summary ---
Author Organization [facility] Address [address] [place] [address] Care Team Providers Care Conduit Reamer Operator Name Role Phone Jefry Mak MD Primary Care Provider Encounter Details Date Type Department Care Team (Late st Contact Info) Description 10/26/2007 Outpatient Historical [facility] Internal Medicine [address] [address] Jefry Mak MD [address] [place] [phone] Social History Tobacco Use Types Packs/Day Years Used Date Smoking Tobacco: Never Assessed Comments Unknown Sex and Gender Information Value Date Recorded Sex Assigned at Not on file Legal Sex Female 3:01 AM BIOASSAYIST Gender Identity Not on file Sexual Orientation Not on file documented as of this encounter Plan of Treatment Not on file documented as of this encounter Visit Diagnoses Not on filedocumented in this encounter Care Teams Conduit Reamer Operator Relationship Specialty Start Date End Date Jefry Mak MD PCP - General 08/02/08 documented as of this encounter
--- OUTSIDE RECORDS SUMMARY | 2025-08-22 06:49 | XMS_ITS | Encounter Summary ---
Author Organization [facility] Address [address] [place] [address] Care Team Providers Care Brim Pouncer Name Role Phone Jefry Mak MD Primary Care Provider [phone] Encounter Details Date Type Department Care Team (Late st Contact Info) Description 01/27/2006 Outpatient Historical [facility] Internal Medicine [address] [address] Jefry Mak MD [address] [place] [phone] Social History Tobacco Use Types Packs/Day Years Used Date Smoking Tobacco: Never Assessed Comments Unknown Sex and Gender Information Value Date Recorded Sex Assigned at Not on file Legal Sex Female 3:01 AM GOLF CADDY Gender Identity Not on file Sexual Orientation [...] on filedocumented in this encounter Care Teams Brim Pouncer Relationship Specialty Start Date End Date Jefry Mak MD PCP - General 08/02/08 documented as of this encounter
--- OUTSIDE RECORDS SUMMARY | 2025-08-22 06:49 | XMS_ITS | Encounter Summary ---
Author Organization [facility] Address [address] [place] [address] Care Team Providers Care General Assembler Name Role Phone Jefry Mak MD Primary Care Provider [phone] Encounter Details Date Type Department Care Team (Late st Contact Info) Description 10/13/2007 Orders Only [facility] Internal Medicine [address] [address] Jefry Mak MD [address] [place] [phone] Social History Tobacco Use Types Packs/Day Years Used Date Smoking Tobacco: Never Assessed Comments Unknown Sex and Gender Information Value Date Recorded Sex Assigned at Not on file Legal Sex Female 3:01 AM MOTOR ROOM CONTROLLER Gender Identity Not on file Sexual Orientation Not on file documented as of this encounter Progress Notes * Jefry Mak MD - 03/02/2008 1:11 PM CDT TIME:12:24 pm PATIENT`S HOME PHONE: PATIENT`S WORK PHONE: PATIENT`S INSURANCE: [employer] WHO TOOK THE CALL: Henna Negron C GENERAL INFORMATION WHO CALLED: Pharmacy [phone] SECTION 1: REQUESTED ACTION baldev 10/13/07 at [...] on filedocumented in this encounter Care Teams General Assembler Relationship Specialty Start Date End Date Jefry Mak MD PCP - General 08/02/08 documented as of this encounter
--- OUTSIDE RECORDS SUMMARY | 2025-08-22 06:49 | XMS_ITS | Encounter Summary ---
Author Organization [facility] Address [address] [place] [address] Care Team Providers Care College Counselor Name Role Phone Jefry Mak MD Primary Care Provider [phone] Encounter Details Date Type Department Care Team (Late st Contact Info) Description 07/16/2005 Outpatient Historical [facility] Internal Medicine [address] [address] Jefry Mak MD [address] [place] [phone] Social History Tobacco Use Types Packs/Day Years Used Date Smoking Tobacco: Never Assessed Comments Unknown Sex and Gender Information Value Date Recorded Sex Assigned at Not on file Legal Sex Female 3:01 AM SPECIAL WARFARE BOAT OPERATOR Gender Identity Not on file Sexual [...] on filedocumented in this encounter Care Teams College Counselor Relationship Specialty Start Date End Date Jefry Mak MD PCP - General 10/15/08 documented as of this encounter
--- OUTSIDE RECORDS SUMMARY | 2025-08-22 06:49 | XMS_ITS | Encounter Summary ---
Author Organization [facility] Address 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 LAB ORDERS: Order number: [id number] Test Ordered: INJ-PNEUMOVAX 77711 784.0-HEADACHE discussed topamax, reassess 783.1-ABNORMAL WEIGHT GAIN try med discussed risks of med at length MEDICATIONS: PHENTERMINE HCL ORAL CAPSULE CONVENTIONAL 37.5 MG, 1 Every Day, 30 Dispensed, 1 Fills, status: NEW PRESCRIPTION, 11/12/2006. LAB ORDERS: Order number: [id number] Test Ordered: CBC (INCLUDES DIFF/PLT) 6399 Order number: [id number] Test Ordered: TSH 899 Order number: [id number] Test Ordered: LIPID PANEL 7600 Order number: [id number] Test Ordered: COMPREHENSIVE METABOLIC PANEL W/ GLOMERULAR FILTRATION RATE, ESTIMATED (EGFR) [id number] RETURN VISIT : Patient instructed to return [...] on filedocumented in this encounter Care Teams Operations Executive Relationship Specialty Start Date End Date Jefry Mak MD PCP - General 08/02/08 documented as of this encounter
--- OUTSIDE RECORDS SUMMARY | 2025-08-22 06:49 | XMS_ITS | Encounter Summary ---
Author Organization [facility] Address 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
--- OUTSIDE RECORDS SUMMARY | 2025-08-22 06:49 | XMS_ITS | Encounter Summary ---
Author Organization [facility] Address [address] [place] [address] Care Team Providers Care Truck Terminal Manager Name Role Phone Jefry Mak MD Primary Care Provider [phone] Encounter Details Date Type Department Care Team (Late st Contact Info) Description 10/26/2007 Outpatient Historical [facility] Internal Medicine [address] [address] Jefry Mak MD [address] [place] [phone] Social History Tobacco Use Types Packs/Day Years Used Date Smoking Tobacco: Never Assessed Comments Unknown Sex and Gender Information Value Date Recorded Sex Assigned at Not on file 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
--- OUTSIDE RECORDS SUMMARY | 2025-08-22 06:49 | XMS_ITS | Encounter Summary ---
Author Organization [facility] Address [address] [place] [address] Care Team Providers Care Professional Security Officer Name Role Phone Jay Pitts MD Unavailable Nellie Mendoza NP Primary Care Provider [phone] Encounter Details Date Type Department Care Team (Latest Contact Info) Description 06/21/2025 Results Follow-Up [facility] [address] [facility] [address] [place] [address] Jay Pitts MD [address] [facility] [address] [place] [address] MRI Cervical Spine W WO Contrast, MRI Brain W WO Contrast Social History Tobacco Use Types Packs/Day Years Used Date Smoking Tobacco: Never Smokeless Tobacco: Never Alcohol Use Standard Drinks/Week Comments No 0 (1 standard drink = 0.6 oz pur e alcohol) PHQ-2 Answer Date Recorded PHQ-2 Total Score (If total score is 3 or more points, staff should administer the PHQ-9) 2 05/25/2025 Comments Unknown Sex and Gender Information Value Date Recorded Sex Assigned at Not on file 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
--- OUTSIDE RECORDS SUMMARY | 2025-08-22 06:49 | XMS_ITS | Encounter Summary ---
Author Organization [facility] Address 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
--- OUTSIDE RECORDS SUMMARY | 2025-08-22 06:49 | XMS_ITS | Encounter Summary ---
Author Organization [facility] Address [address] [place] [address] Care Team Providers Care Forest Economics Professor Name Role Phone Jefyr Mak MD Primary Care Provider [phone] Encounter Details Date Type Department Care Team (Late st Contact Info) Description 01/14/2007 Outpatient Historical [facility] Internal Medicine [address] [address] Jefry Mak MD [address] [place] [phone] Social History Tobacco Use Types Packs/Day Years Used Date Smoking Tobacco: Never Assessed Comments Unknown Sex and Gender Information Value Date Recorded Sex Assigned at Not on file 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
--- OUTSIDE RECORDS SUMMARY | 2025-08-22 06:49 | XMS_ITS | Encounter Summary ---
Author Organization [facility] Address 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
--- OUTSIDE RECORDS SUMMARY | 2025-08-22 06:49 | XMS_ITS | Encounter Summary ---
Author Organization [facility] Address 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
--- OUTSIDE RECORDS SUMMARY | 2025-08-22 06:49 | XMS_ITS | Encounter Summary ---
Author Organization [facility] Address [address] [place] [address] Care Team Providers Care Binder Folder Operator Name Role Phone Jefry Mak MD Primary Care Provider [phone] Encounter Details Date Type Department Care Team (Late st Contact Info) Description 11/12/2006 Outpatient Historical [facility] Internal Medicine [address] [address] Jefry Mak MD [address] [place] [phone] Social History Tobacco Use Types Packs/Day Years Used Date Smoking Tobacco: Never Assessed Comments Unknown Sex and Gender Information Value Date Recorded Sex Assigned at Not on file 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
--- OUTSIDE RECORDS SUMMARY | 2025-08-22 06:49 | XMS_ITS | Encounter Summary ---
Author Organization [facility] Address 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
--- OUTSIDE RECORDS SUMMARY | 2025-08-22 06:49 | XMS_ITS | Encounter Summary ---
Author Organization [facility] Address 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
--- OUTSIDE RECORDS SUMMARY | 2025-08-22 06:49 | XMS_ITS | Encounter Summary ---
Author Organization [facility] Address 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 PHARMACY NUMBER: [phone] SECTION 1: REQUESTED ACTION licasl 10/14/06 at [...] on filedocumented in this encounter Care Teams Highway Truck Driver Relationship Specialty Start Date End Date Jefry Mak MD PCP - General 08/02/08 documented as of this encounter
--- OUTSIDE RECORDS SUMMARY | 2025-08-22 06:50 | XMS_ITS | Clinical Summary ---
Author Organization [facility] Address [address] [place] [address] Care Team Providers Care Assistant Superintendent Name Role Phone Jay Pitts MD Unavailable Nellie Mendoza NP Primary Care Provider [phone] Allergies Active Allergy Reactions Criticality Noted Date Comments Erythromycin Stomach upset Low Hydrocodone-Acetaminophen Nausea only,Stomach upset Low 01/28/2019 Medications fexofenadine (JESÚS) 180 mg tablet take 1 tablet by oral route every day 30 0 06/02/20 16 Active Additional Information Patient taking differently:180 mgoral Daily, Reported on 06/29/2025 cholecalciferol (VITAMIN D3) 2,000 unit tablet Take 2 tablets by oral route every day 0 0 06/02/20 16 Active Additional Information Patient taking differently: 2,000 Units oral Daily, Reported on 06/29/2025 cyanocobalamin (vitamin B-12) 1,000 mcg tablet Take 2 tablets by oral route every day 0 0 06/02/20 16 Active ipratropium-alb uterol (DUO-NEB) 0.5-2.5 mg/3 mL nebulizer solution USE 1 VIAL VIA NEBULATION ROUTE Q 4 H PRN FOR SHORTNESS OF BREATH 0 01/24/20 19 Active rOPINIRole (REQUIP) 0.25 mg tabletIndicatio ns:Restless leg syndrome Take 1 to 2 tablets orally at night as needed. 180 tablet 3 03/25/20 19 Active Additional Information Patient taking differently: 0.25 mg oral As needed, Take 1 to 2 tablets orally at night as needed., Reported on 06/29/2025 vit C/E/Zn/coppr/karen tein/zeaxan (PRESERVISION AREDS-2 ORAL) Take by mouth Ac tive modafiniL (PROVIGIL) 200 mg tabletIndicatio ns:Multiple sclerosis TAKE 1 TABLET BY MOUTH IN THE MORNING AND 1 TABLET AT NOON 180 tablet 3 05/13/20 23 Active Additional Information Patient taking differently: 200 mg oral As needed, TAKE 1 TABLET BY MOUTH IN THE MORNING AND 1 TABLET AT NOON, Reported on 06/29/2025 fluticasone propion-salmete roL (ADVAIR HFA) 230-21 mcg/actuation inhaler Inhale 2 puffs 2 (two) times a day Rinse mouth with water after use. Do not swallow. 3 each 3 08/31/20 24 Active montelukast (SINGULAIR) 10 mg tabletIndicatio ns:Moderate persistent asthma without complication Take 1 tablet [...] 1 each 11 09/13/20 24 025 Active traMADoL (ULTRAM) 50 mg tablet Take 1-2 tablets at bedtime as needed for pain 28 tablet 05/25/20 25 Active Additional Information Patient taking differently: 50 mg oral As needed, Take 1-2 tablets at bedtime as needed for pain, Reported on 06/29/2025 fluticasone propionate (FLONASE) 50 mcg/actuation nasal spray Administer 1 spray into affected nostril(s) daily Active Copaxone 40 mg/mL syringeIndicati ons:relapsing form of multiple sclerosis Inject 1 mL (40 mg total) under the skin 3 (three) times a week 12 mL 5 07/28/20 25 Active Copaxone 40 mg/mL syringe INJECT 1 SYRINGE UNDER THE SKIN 3 TIMES PER WEEK AT LEAST 48 HOURS APART 12 mL 5 06/07/20 25 025 Discontinued glatiramer (Glatopa) 40 mg/mL syringe INJECT 1 SYRINGE UNDER THE SKIN 3 TIMES PER WEEK AT LEAST 48 HOURS APART 12 mL 5 07/26/20 25 025 Discontinued Active Problems Problem Noted Date Diagnosed Date [...] 02/07/2021 Assessment & Plan (11/14/2023 9:57 AM CREW DISPATCHER): August 2020. Cough, fever < 102 F, [...] 10/26/2019 Assessment & Plan (08/31/2024 8:25 AM CREW DISPATCHER): -Recommended: Healthy diet. Avoiding junk food/fast food. 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 Assessment & Plan (10/26/2019 8:11 AM CREW DISPATCHER): -Recommended: Healthy diet. Avoiding junk food/fast food. [...] 03/25/2019 Assessment & Plan (11/14/2023 9:57 AM CREW DISPATCHER): Ropinirole 0.25 mg qhs. Risks discussed. Assessment [...] discussed. Assessment & Plan (12/14/2019 1:04 PM CREW DISPATCHER): Ropinirole 0.25 to 0.5 mg qhs. Risks discussed. Assessment & Plan (03/25/2019 9:27 AM CDT): Ropinirole 0.25 to 0.5 mg qhs. Risks discussed. Moderate persistent asthma without complication 01/28/2019 Assessment & Plan (08/31/2024 8:24 AM CREW DISPATCHER): Insurance directed, change to advair HFA. Uses [...] prn. Assessment & Plan (10/26/2019 8:11 AM CREW DISPATCHER): Continue advair, albuterol prn Vitamin B 12 deficiency 01/28/2019 Assessment & Plan (08/31/2024 8:25 AM CREW DISPATCHER): Check B12. Encouraged to get labs done Assessment & Plan (08/04/2022 8:45 AM CDT): Pt is not sure if she was ever B12 deficient, thinks she may have been told to take it for brain health or energy. Will check B12 level today Multiple sclerosis 10/26/2013 Assessment & Plan (08/31/2024 8:26 AM CREW DISPATCHER): Stable - managed by neurology. On capoxone. Assessment & Plan (11/14/2023 9:57 AM CREW DISPATCHER): Minimal intracranial disease including a lesion adjacent [...] spinal cord with contrast to be completed [facility]. Ordered again. Assessment & Plan (06/12/2022 4:56 [...] January 24, 2021. Booster vaccination recommended again. Anne advised if she develops COVID-19 again. Continue Provigil 200 mg in the morning. Decreased Provigil to 100 mg at noon from 200 mg at noon since having insomnia. Vitamin D3 supplement 2000 IU daily Exercise encouraged. MRI brain and cervical spinal cord to be completed [facility]. Previously ordered. Assessment & Plan (08/14/2021 5:48 [...] 2021 Assessment & Plan (12/14/2019 1:04 PM CREW DISPATCHER): Minimal intracranial disease including a lesion adjacent [...] 09/23/2013 Assessment & Plan (11/14/2023 9:57 AM CREW DISPATCHER): S/p left frontal meningioma resection Oct 2013 [...] imaging Assessment & Plan (12/14/2019 1:03 PM CREW DISPATCHER): S/p left frontal meningioma resection Oct 2013 [...] mg at bedtime. Encounter for well woman exa m with routine gynecological exam 07/26/2020 08/04/2022 Assessment [...] Encounters Date Type Department Care Team Description 07/26/[address] [facility] [address] [place] [phone] Morena Richmond RPh 06/29/2025 2:45 PM CDT Office Visit [facility] [address], [place] [address] Jay Pitts MD Multiple sclerosis (HCC) (Primary Dx); Intracranial meningioma (HCC); Restless leg syndrome 06/21/2025 6:32 AM CDT - 06/21/2025 11:59 PM CDT Hospital Encounter [facility] [address] [place] [phone] Multiple sclerosis (HCC) Discharge Disposition: Discharge to home or self care 06/21/2025 6:31 AM CDT - 06/21/2025 11:59 PM CDT Hospital Encounter [facility] [address] [place] [phone] Multiple sclerosis (HCC) Discharge Disposition: Discharge to home or self care 06/21/2025 Results Follow-Up [facility] [address], [place] [phone] Jay Pitts MD MRI Cervical Spine W WO Contrast, MRI Brain W WO Contrast 06/13/2025 Orders Only [facility] [address], [place] [phone] Jay Pitts MD Multiple sclerosis (HCC) (Primary Dx) 06/07/2025 8:02 AM CDT - 06/07/2025 11:59 PM CDT Hospital Encounter [facility] [address] [place] [phone] Left medial knee pain Discharge Disposition: Discharge to home or self care 06/07/2025 Results Follow-Up [facility] at [address] [phone] Nellie Mendoza NP MRI Knee Left WO Contrast 06/06/2025 Telephone [facility] [address] [place] [phone] Jay Pitts MD 05/25/2025 9:00 AM CDT Office Visit [facility] at [address] [phone] Nellie Mendoza NP Left medial knee pain (Primary Dx); Elevated blood-pressure reading, without diagnosis of hypertension from Last 3 Months Immunizations Immunization Administration Dates Next Due Influenza, Quadrivalent, Spl it, Intramuscular 07/28/2016,07/19/2015 Influenza, Trivalent, IM (MDV) 4,08/12/2013,07/19/2012,07/28,07/19/2010,07/28/2009 Influenza, Trivalent, Preser vative Free, Intramuscular 08/19/2014,09/07/2013 Influenza, Unspecified 08/07/2024,2021,07/30/2021,07/19,07/19/2019 [employer] ([employer]) SARS-CoV-2 Vaccination 01/24/2021 Pneumococcal Polysaccharide PPV23 11/12/2006, Td, Unspecified 03/03/2015 Td, adsorbed 11/15/2002 Tdap 08/25/2008 ZOSTER Recombinant 12/05/2022,08/04/2022 Surgical History Surgery Date Site/Laterality Comments APPENDECTOMY April 22, 2002 Appendectomy OTHER SURGICAL HISTORY Left Meningioma removed BREAST BIOPSY 02/24/2023 Left BRAIN SURGERY November 10, 2013 Medical History Medical History Date Comments Hx Other Medical 1990 Allergies Asthma 1999 Asthma Hx Other Medical 2001 MS Restless legs syndrome Restless leg syndrome; Comments: TWM 06/02/2016 - Meningitis MS 2001 Family History Medical History Relation Name Comments Arthritis Brother 1 Jon No Known Problems Brother 2 COPD Father Lyndel Hypertension Father Lyndel Hypertension; Hypertension Mother Evangelina Hypertension; Arthritis Sister Angélica Relation Name Status Comments Brother 1 Jon Alive Brother 2 Alive Father Lyndel Alive Mother Evangelina Alive Sister Angélica Alive Social History Tobacco Use Types Packs/Day [...] on file Legal Sex Female 4:52 PM CREW DISPATCHER Gender Identity Not on file Sexual Orientation Not on file Last Filed Vital Signs Vital Sign Reading Time Taken Comments Blood Pressure 124/76 06/29/2025 2:48 PM CDT Pulse 83 06/29/2025 2:48 PM CDT Temperature 36.3 C (97.3 F) 05/25/2025 9:12 AM CDT Respiratory Rate 16 05/25/2025 9:12 AM CDT Oxygen Saturation 97% 06/29/2025 2:48 PM CDT Inhaled Oxygen Concentration - - Weight 87.8 kg (193 lb 9.6 oz) 06/29/2025 2:48 P M CDT Height 163.8 cm (5' 4.5) 06/29/2025 2:48 PM CDT Body Mass Index 32.72 06/29/2025 2:48 PM CDT Plan of Treatment Health Maintenance Due Date Last Done Comments Hepatitis C Screening 1965 Hepatitis B Screening 1983 Pneumococcal vaccine <65 (2 of 2 - PCV) 11/12/2007 11/12/2006, 12/10/1998 Cervical Cancer Screening 07/26/2021 07/26/2020 Breast Cancer Screening-Mammogram 02/06/2024 023, 10/18/2022 DTaP/Tdap/Td Vaccine (3 - Td or Tdap) 03/03/2025 03/03/2015, 08/25/2008, 11/15/2002 Covid-19 Vaccine (2 - 2024-2 6 season) 2025 01/24/2021 Influenza Vaccine (#1) 2025 4, 07/30/2022, 07/30/2021, Additional history exists Regular Well Visit/Exam 18-64 08/31/2025, 08/11/2023, 08/04/2022, Additional history exists Depression Screening 05/25/2026 05/25/2025, 08/31/2024, 08/11/2023, Additional history exists Colon Cancer Screening-Colonoscopy 10/06/2032 10/06/2022, 10/03/2022, 07/25/2016 Colon Cancer Screening-CT Colonography Discontinued 10/06/2022, 10/03/2022, 07/25/2016 Colon Cancer Screening-DNA Stool Discontinued 10/06/2022, 10/03/2022, 07/25/2016 Colon Cancer Screening-FIT Discontinued 10/06, 10/03/2022, 07/25/2016 Colon Cancer Screening-Sigmoidoscopy Discontinued 10/06/2022, 10/03/2022, 07/25/2016 Zoster Vaccine Completed 12/05/2022, 08/04/2022 Procedures Procedure Name Priority Date/Time Associated Diagnosis Comments MRI BRAIN W WO CONTRAST Schedule Routine, Read Routine (OP Routine) 06/21/2025 7:44 AM CDT Multiple sclerosis (HCC) MRI CERVICAL SPINE W WO CONTRAST Routine 06/21/2025 7:44 AM CDT Multiple sclerosis (HCC) MRI KNEE LEFT WO CONTRAST Schedule Routine, Read Routine (OP Routine) 06/07/2025 8:49 AM CDT Left medial knee pain DIAGNOSTIC MAMMOGRAM BILATERAL W [place] Schedule Routine, Read Routine (OP Routine) 02/05/2023 10:13 AM CDT Abnormal mammogram COLONOSCOPY Routine 10/06/2022 3:10 PM CREW DISPATCHER PAP WITH REFLEX TO HIGH RISK HPV Routine 07/26/2020 8:46 AM CDT from Last 3 Months or Most Recently Relevant to Health Maintenance Results * MRI Brain W WO Contrast (06/21/2025 7:44 AM CDT) Anatomical Region Laterality Modality Head and Neck N/A Magnetic Resonan ce 06/21/2025 9:19 AM CDT Narrative 06/21/2025 9:55 AM CDT EXAM DESCRIPTION: MRI BRAIN W WO CONTRAST REASON FOR STUDY: Multiple sclerosis (MS) Bi yearly evaluation for ms TECHNIQUE: Multiplanar imaging includes noncontrast T1, T2, FLAIR, diffusion with ADC map and post contrast T1 sequences. Additional sequence(s) sensitive to blood products. Images stored on PACS. CONTRAST TYPE/DOSE: 18mL of GADOTERATE MEGLUMINE 0.5 MMOL/ML INTRAVENOUS SOLUTION (SO) injected via intravenous COMPARISON: MRI brain from an outside institution dated 05/30/2023. MRI brain dated 03/22/2017 and 11/22/2014. FINDINGS: The occasional white matter tiny T2/FLAIR hyperintense signal including adjacent to the frontal horn of the right lateral ventricle as seen previously. This is highly nonspecific and could reflect patient's provided history of multiple sclerosis. No intrinsic T1 hypointense signal suggesting profound demyelination/axonal volume loss. There is no enhancing cord lesion. The right lateral hemicord 2 mm enhancing signal (series 15, image 6) in retrospect is similar when compared to the earliest available MRI brain dated 11/22/2014. Given long-term stability the findings could reflect a vascular lesion such as a CAGE CLERK CT biliary telangiectasia. Persistent enhancing plaque of demyelination is favored to be less likely. Please correlate with the patient's clinical presentation. Left frontoparietal craniotomy related changes are again seen. Subjacent susceptibility signal in keeping with old blood degradation products/treatment related change. Mild adjacent dural thickening and enhancement would be compatible with postoperative change. Elsewhere in the brain there is no diffusion restriction to suggest acute/recent infarction. The size and configuration of the ventricles and sulci normal for the patient's age. There is no hydrocephalus. The basilar cisterns are maintained. The bilateral globes are symmetric. Mucosal thickening in the bilateral ethmoid air cells. The mastoid air cells are predominantly clear. IMPRESSION: 1. The occasional white matter T2/FLAIR hyperintense as seen on the previous MRI dated 05/30/2023. No new or enhancing plaque is identified. 2. 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 3. Other findings as above. THIS IS AN ELECTRONICALLY VERIFIED FINAL REPORT 06/21/2025 9:55 AM - Electronically signed by Raudel Rodriguez D.O. AP: RON Report ID: [id number] Reading Location: [place] [id number] Procedure Note Raudel Rodriguez, DO - 06/21/2025 EXAM DESCRIPTION: MRI BRAIN W WO CONTRAST REASON FOR STUDY: Multiple sclerosis (MS) Bi yearly evaluation for ms TECHNIQUE: Multiplanar imaging includes noncontrast T1, T2, FLAIR,diffusion with ADC map and post contrast T1 sequences. Additional sequence(s)sensitive to blood products. Images stored on PACS. CONTRAST TYPE/DOSE: 18mL of GADOTERATE MEGLUMINE 0.5 MMOL/ML INTRAVENOUS SOLUTION (SO) injected via intravenous COMPARISON: MRI brain from an outside institution dated 05/30/2023. MRI brain dated 03/22/2017 and 11/22/2014. FINDINGS: The occasional white matter tiny T2/FLAIR hyperintense signal including adjacent to the frontal horn of the right lateral ventricle as seen previously. This is highly nonspecific and could reflect patient'sprovided history of multiple sclerosis. No intrinsic T1 hypointense signalsuggesting profound demyelination/axonal volume loss. There is no enhancing cordlesion. The right lateral hemicord 2 mm enhancing signal (series 15, image 6) in retrospect is similar when compared to the earliest available MRI braindated 11/22/2014. Given long-term stability the findings could reflect avascular lesion such as a CAGE CLERK CT biliary telangiectasia. Persistent enhancingplaque of demyelination is favored to be less likely. Please correlate with the patient's clinical presentation. Left frontoparietal craniotomy related changes are again seen. Subjacent susceptibility signal in keeping with old blood degradationproducts/treatment related change. Mild adjacent dural thickening and enhancement would be compatible with postoperative change. Elsewhere in the brain there is no diffusion restriction to suggest acute/recent infarction. The size and configuration of the ventricles and sulci normal for the patient's age. There is no hydrocephalus. Thebasilar cisterns are maintained. The bilateral globes are symmetric. Mucosal thickening in the bilateral ethmoid air cells. The mastoid air cells are predominantly clear. IMPRESSION: 1. The occasional white matter T2/FLAIR hyperintense as seen on theprevious MRI dated 05/30/2023. No new or enhancing plaque is identified. 2. 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 3. Other findings as above. THIS IS AN ELECTRONICALLY VERIFIED FINAL REPORT 06/21/2025 9:55 AM - Electronically signed by Raudel Rodriguez D.O. AP: AP Report ID: [id number] Reading Location: [place] [address] us Jay Pitts MD IMG MRI PROCEDURES Final Resu lt * MRI Cervical Spine W WO Contrast (06/21/2025 7:44 AM CDT) Anatomical Region Laterality Modality Spine N/A Magnetic Resonan ce 06/21/2025 9:21 AM CDT Narrative 06/21/2025 10:21 AM CDT EXAM DESCRIPTION: MRI CERVICAL SPINE W WO CONTRAST REASON FOR STUDY: see diagnosis Bi yearly evaluation for ms TECHNIQUE: Sagittal and Axial imaging includes T1, T2, STIR and gradient echo sequences. Post contrast T1-weighted images. CONTRAST TYPE/DOSE: 18mL of GADOTERATE MEGLUMINE 0.5 MMOL/ML INTRAVENOUS SOLUTION (SO) injected via intravenous COMPARISON: Cervical spine MRI from an outside institution dated 05/30/2023. Cervical spine MRI dated 05/22/2017. FINDINGS: ALIGNMENT: Grade 1 anterolisthesis of C3 on C4 and C7 on T1. Grade 1 retrolisthesis of C4 on C5. VERTEBRAE: There is no acute compression fracture in the cervical spine. If trauma is suspected then a CT has higher sensitivity spinal fractures can be obtained as clinically indicated. Multilevel endplate degenerative changes and marginal spur formation. DISCS: Multilevel disc desiccation and height loss. HARDWARE: None in the spine. CORD: The T2 hyperintense cord signal alteration at C2 as seen on the previous MRI and compatible patient's history of multiple sclerosis. Additional scattered patchy T2 hyperintensities are not reproduced on all sequences and could be pulsation artifact. There is no enhancing cord lesion. C2-C3: No significant disc bulge, spinal canal or neural foraminal narrowing. C3-C4: Posterior disc osteophyte complex eccentric to the right indents the right ventral thecal sac. Uncovertebral spurring and facet arthropathy with mild right and no significant left neural foraminal narrowing. C4-C5: Posterior disc osteophyte complex flattens the ventral thecal sac. Dorsal CSF cleft is maintained. Uncovertebral spurring and facet arthropathy with moderate right and mild left neural foraminal narrowing. C5-C6: Posterior disc osteophyte complex without significant spinal canal stenosis. Uncovertebral spurring and facet arthropathy with [id number] right and mild left neural foraminal narrowing. C6-C7: Posterior disc osteophyte complex without significant spinal canal stenosis. Uncovertebral spurring and facet arthropathy with mild inferior bilateral neural foraminal narrowing. C7-T1: Anterolisthesis of C7 on T1 with unroofing of the disc. No significant spinal canal stenosis. Thickened ligamentum flavum and facet arthropathy with mild left and no significant right neural foraminal narrowing. UPPER THORACIC: Incompletely imaged. No high-grade spinal canal stenosis. IMPRESSION: 1. The T2 hyperintense cervical cord signal alteration as seen on the previous MRI dated 05/30/2023 and compatible with patient's provided history of multiple sclerosis. No enhancing plaque is identified. 2. Cervical disc degeneration ranging up to moderate with uncovertebral spurring and facet arthropathy as above. No high-grade spinal canal stenosis. 3. Varying degrees of bilateral neural foraminal stenosis and other findings as above. THIS IS AN ELECTRONICALLY VERIFIED FINAL REPORT 06/21/2025 10:21 AM - Electronically signed by Raudel Rodriguez D.O. AP: AP Report ID: [id number] Reading Location: [id number] Procedure Note Raudel Rodriguez, DO - 06/21/2025 EXAM DESCRIPTION: MRI CERVICAL SPINE W WO CONTRAST REASON FOR STUDY: see diagnosis Bi yearly evaluation for ms TECHNIQUE: Sagittal and Axial imaging includes T1, T2, STIR and gradientecho sequences. Post contrast T1-weighted images. CONTRAST TYPE/DOSE: 18mL of GADOTERATE MEGLUMINE 0.5 MMOL/ML INTRAVENOUS SOLUTION (SO) injected via intravenous COMPARISON: Cervical spine MRI from an outside institution dated05/30/2023. Cervical spine MRI dated 05/22/2017. FINDINGS: ALIGNMENT: Grade 1 anterolisthesis of C3 on C4 and C7 on T1. Grade 1 retrolisthesis of C4 on C5. VERTEBRAE: There is no acute compression fracture in the cervical spine.If trauma is suspected then a CT has higher sensitivity spinal fractures canbe obtained as clinically indicated. Multilevel endplate degenerativechanges and marginal spur formation. DISCS: Multilevel disc desiccation and height loss. HARDWARE: None in the spine. CORD: The T2 hyperintense cord signal alteration at C2 as seen on the previous MRI and compatible patient's history of multiple sclerosis. Additional scattered patchy T2 hyperintensities are not reproduced on all sequences and could be pulsation artifact. There is no enhancing cordlesion. C2-C3: No significant disc bulge, spinal canal or neural foraminalnarrowing. C3-C4: Posterior disc osteophyte complex eccentric to the right indentsthe right ventral thecal sac. Uncovertebral spurring and facet arthropathywith mild right and no significant left neural foraminal narrowing. C4-C5: Posterior disc osteophyte complex flattens the ventral thecal sac. Dorsal CSF cleft is maintained. Uncovertebral spurring and facetarthropathy with moderate right and mild left neural foraminal narrowing. C5-C6: Posterior disc osteophyte complex without significant spinal canal stenosis. Uncovertebral spurring and facet arthropathy [id number] right and mild left neural foraminal narrowing. C6-C7: Posterior disc osteophyte complex without significant spinal canal stenosis. Uncovertebral spurring and facet arthropathy with mild inferior bilateral neural foraminal narrowing. C7-T1: Anterolisthesis of C7 on T1 with unroofing of the disc. Nosignificant spinal canal stenosis. Thickened ligamentum flavum and facet arthropathywith mild left and no significant right neural foraminal narrowing. UPPER THORACIC: Incompletely imaged. No high-grade spinal canalstenosis. IMPRESSION: 1. The T2 hyperintense cervical cord signal alteration as seen on the previous MRI dated 05/30/2023 and compatible with patient's providedhistory of multiple sclerosis. No enhancing plaque is identified. 2. Cervical disc degeneration ranging up to moderate with uncovertebral spurring and facet arthropathy as above. No high-grade spinal canalstenosis. 3. Varying degrees of bilateral neural foraminal stenosis and otherfindings as above. THIS IS AN ELECTRONICALLY VERIFIED FINAL REPORT 06/21/2025 10:21 AM - Electronically signed by Raudel Rodriguez D.O. AP: AP Report ID: [id number] Reading Location: [id number] us Jay Pitts MD IMG MRI PROCEDURES Final Resu lt * MRI Knee Left WO Contrast (06/07/2025 8:49 AM CDT) Anatomical Region Laterality Modality Lower Extremities Left Magnetic Reson ance 06/07/2025 9:21 AM CDT Narrative 06/07/2025 9:27 AM CDT EXAM DESCRIPTION: MRI KNEE LEFT WO CONTRAST REASON FOR STUDY: Meniscal injury, knee, pain after hiking, meniscal injury suspected 1 month pain after hiking/ pt has trouble with her gait/ flexion and extension of her knee and bearing weight TECHNIQUE: Multiplanar, multisequence MRI of the left knee was performed without contrast. COMPARISON: None FINDINGS: Joint and Bursae: There is a moderate joint effusion. Trace Perez's cyst. No intra-articular plica. Bones: No fracture. Cartilage: Patellofemoral: Moderate to advanced chondromalacia Medial compartment: Moderate to advanced chondromalacia Lateral Compartment: She a mild chondromalacia Ligaments: The ACL, PCL, MCL and lateral collateral ligament complex are intact. Extensor Mechanism: The quadriceps and patellar tendons are intact. Tendons/Soft tissues: The popliteus tendon is intact. The musculature is intact without evidence of tear. The popliteal neurovascular bundle is normal. Medial Meniscus: The anterior horn is intact. Mild extrusion of the body. Radial tear of the posterior horn root junction. Lateral Meniscus: The anterior horn, body and posterior horn is intact. IMPRESSION: 1. Medial meniscus posterior horn root junction radial tear with mild extrusion of the body. 2. Intact appearing cruciate and collateral ligaments as well as lateral meniscus. 3. 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 4. Moderate joint effusion. Trace Perez's cyst. THIS IS AN ELECTRONICALLY VERIFIED FINAL REPORT 06/07/2025 9:27 AM - Electronically signed by Júnior Neil M.D. JA: SHARI Report ID: [id number] Reading Location: [id number] Procedure Note Júnior Neil MD - 06/07/2025 EXAM DESCRIPTION: MRI KNEE LEFT WO CONTRAST REASON FOR STUDY: Meniscal injury, knee, pain after hiking, meniscalinjury suspected 1 month pain after hiking/ pt has trouble with her gait/ flexion andextension of her knee and bearing weight TECHNIQUE: Multiplanar, multisequence MRI of the left knee was performed without contrast. COMPARISON: None FINDINGS: Joint and Bursae: There is a moderate joint effusion. Trace Perez'scyst. No intra-articular plica. Bones: No fracture. Cartilage: Patellofemoral: Moderate to advanced chondromalacia Medial compartment: Moderate to advanced chondromalacia Lateral Compartment: She a mild chondromalacia Ligaments: The ACL, PCL, MCL and lateral collateral ligament complex are intact. Extensor Mechanism: The quadriceps and patellar tendons are intact. Tendons/Soft tissues: The popliteus tendon is intact. The musculature is intact without evidence of tear. The popliteal neurovascular bundle isnormal. Medial Meniscus: The anterior horn is intact. Mild extrusion of thebody. Radial tear of the posterior horn root junction. Lateral Meniscus: The anterior horn, body and posterior horn is intact. IMPRESSION: 1. Medial meniscus posterior horn root junction radial tear with mild extrusion of the body. 2. Intact appearing cruciate and collateral ligaments as well as lateral meniscus. 3. 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 4. Moderate joint effusion. Trace Perez's cyst. THIS IS AN ELECTRONICALLY VERIFIED FINAL REPORT 06/07/2025 9:27 AM - Electronically signed by Júnior MCCARTHY: SHARI Report ID: [id number] Reading Location: [id number] Nellie Mendoza PLAN COORDINATOR IMG MRI PROCEDURES Final Resu lt * Diagnostic Mammogram Bilateral [place] (02/05/2023 [...] has been scheduled to return to the [facility] for biopsy on 02/24/2023 at 10:45 AM. [...] has been scheduled to return to the [facility] for biopsy on 02/24/2023 at 10:45 AM. [...] 12:49 PM CDT [facility] Department of Pathology [address] [place] [address] [id number] Final Report with Addendum Patient Name: EDITH CALLOWAY Address: [address] [place] [address] Gender: F : 1965 (Age: 54) Service: Laboratory Location: Lab [facility] #: [id number] Patient Type: [facility] Lab Taken: 07/26/2020 Received: 07/26/2020 Accessioned:: 07/27/2020 Reported: 07/30/2020 Physician(s): Nellie Mendoza NPancho Mendoza NPancho Diagnosis: Source of Specimen: Imaged Thinprep Pap Test plus HPV - Spinning And Winding Supervisor Cytologic Material Specimen Adequacy: - Specimen [...] Electronically Reviewed and Signed Out By BRIAN Guy(ASCP) 07/27/2020 15:58:02 Specimen(s) Received: A: Imaged Thinprep Pap Test plus HPV - Spinning And Winding Supervisor Cytologic Material Clinical History: Last Menstrual [...] determined by the Surgical Pathology Department at [facility] as part of an ongoing quality assurance group leader program and in compliance with federally mandated [...] characteristics determined by the Surgical Pathology Department [facility]. It has not been cleared or approved by the U. S. Food and Drug Administration. Nellie Mendoza NP LAB CYTOLOGY ORDERABLES Final Result from Last 3 Months or Most Recently Relevant to Health Maintenance Insurance [facility] Care Teams Assistant Superintendent Relationship Specialty Start Date End Date Nellie Mendoza NP [address] [facility] [address] [place] [address] PCP - General Family Medicine 10/26/19 Jay Pitts MD [address] [facility] [address] [place] [address] Consulting Physician Neurology 01/28/19
--- OUTSIDE RECORDS SUMMARY | 2025-08-22 06:50 | XMS_ITS | Encounter Summary ---
Author Organization [facility] Address [address] [place] [address] Care Team Providers Care Real Estate Coordinator Name Role Phone Jefry Mak MD Primary Care Provider [phone] Encounter Details Date Type Department Care Team (Late st Contact Info) Description 11/07/2003 Outpatient Historical [facility] Internal Medicine [address] [address] Riccardo Simon MD [address] [place] [phone] Social History Tobacco Use Types Packs/Day Years Used Date Smoking Tobacco: Never Assessed Comments Unknown Sex and Gender Information Value Date Recorded Sex Assigned at Not on file Legal Sex Female 3:01 AM PRECISION LENS POLISHER Gender Identity Not on file Sexual Orientation Not on file documented as of this encounter Last Filed Vital Signs Vital Sign Reading Time Taken Comments Blood Pressure 102/70 11/07/2003 4:00 PM PRECISION LENS POLISHER Pulse - - Temperature 36.2 C (97.1 F) 11/07/2003 4:00 PM PRECISION LENS POLISHER Respiratory Rate - - Oxygen Saturation - - Inhaled Oxygen Concentration - - Weight 66.2 kg (146 lb) 11/07/2003 4:00 PM PRECISION LENS POLISHER Height - - Body Mass Index - - documented in this encounter Plan of Treatment Not on file documented as of this encounter Visit Diagnoses Not on filedocumented in this encounter Care Teams Real Estate Coordinator Relationship Specialty Start Date End Date Jefry Mak MD PCP - General 08/02/08 documented as of this encounter
--- OUTSIDE RECORDS SUMMARY | 2025-08-22 06:50 | XMS_ITS | Encounter Summary ---
Author Organization [facility] Address [address] [place] [address] Care Team Providers Care Site Manager Name Role Phone Jefry Mak MD Primary Care Provider [phone] Encounter Details Date Type Department Care Team (Late st Contact Info) Description 11/07/2004 Outpatient Historical [facility] Internal Medicine [address] [address] Jefry Mak MD [address] [place] [phone] Social History Tobacco Use Types Packs/Day Years Used Date Smoking Tobacco: Never Assessed Comments Unknown Sex and Gender Information Value Date Recorded Sex Assigned at Not on file Legal Sex Female 3:01 AM MAINTENANCE PLUMBER Gender Identity Not on file Sexual Orientation Not on file documented as of this encounter Last Filed Vital Signs Vital Sign Reading Time Taken Comments Blood Pressure 110/70 11/07/2004 3:15 PM MAINTENANCE PLUMBER Pulse - - Temperature 36.7 C (98 F) 11/07/2004 3:15 PM MAINTENANCE PLUMBER Respiratory Rate - - Oxygen Saturation - - Inhaled Oxygen Concentration - - Weight 77.1 kg (170 lb) 11/07/2004 3:15 PM MAINTENANCE PLUMBER Height - - Body Mass Index - - documented in this encounter Plan of Treatment Not on file documented as of this encounter Visit Diagnoses Not on filedocumented in this encounter Care Teams Site Manager Relationship Specialty Start Date End Date Jefry Mak MD PCP - General 08/02/08 documented as of this encounter
--- NOTE | 2025-08-22 07:43 | ECG_ITS ---
Test Date: 2025-08-22 07:52:25 Measurements Intervals [place] Rate: 72 P: 63 WA: 178 QRS: 24 QRSD: 81 T: 41 QT: 413 QTc: 455 Interpretive Statements SINUS RHYTHM WITH OCCASIONAL SUPRAVENTRICULAR PREMATURE COMPLEXES No previous ECG available for comparison Electronically Signed On 08-22-2025 21:19:57 UPSETTER SETTER UP by Jeff Clemente M.D.
[2025-08-22 08:22] LABS: Hematocrit 40.1 % (37.0-47.0); Hemoglobin 12.5 g/dL (12.0-15.0)
[2025-08-22 08:54] LABS: Albumin Level 4.0 g/dL (3.5-5.1); Estimated Glomerular Filt Rate > 60; Glucose 94 mg/dL (65-110)
== END 2025-08-22 06:47 | disposition home or self-care (01) ==
LOC: ANHIMG 06:48
PROVIDERS: PCP Nurse Practitioner Family; Visit Provider Orthopaedic Surgery
DX: Z01.818 Encounter for other preprocedural examination (principal); M17.12 Unilateral primary osteoarthritis, left knee
CPT/HCPCS: 36415; 73700; 82040; 82565; 82947; 85014; 85018; 93005

== ENCOUNTER 2025-10-03 09:55 | Outpatient (CLI) | payer OTHER, SELFPAY ==
--- OUTSIDE RECORDS SUMMARY | 2007-11-18 | XMS_ITS | Encounter Summary ---
Author Organization [facility] Healthcare Address [address] [place] [address] Care Team Providers Care Forest Law And Policy Professor Name Role Phone Brenda Hodges MD Primary Care Provider Reason for Visit * Diagnostic Imaging (Routine) - Closed Specialty Diagnoses / Procedures Referred By Contac t Referred To Contact Procedures Breast Imaging Diagnostic Outside Reference Nellie Mendoza NP Phone: tel: fax: Referral ID Status Reason Start Date Expiration Date Visits Re quested Visits Authorized [id number] Closed 12/16/2022 01/15/2024 1 1 Encounter Details Date Type Department Care Team (Late st Contact Info) Description 11/18/2007 Hospital Encounter [facility] [address] [place] [phone] Social History Tobacco Use Types Packs/Day Years Used Date Smoking Tobacco: Never Smokeless Tobacco: Never Alcohol Use Standard Drinks/Week Comments No 0 (1 standard drink = 0.6 oz pur e alcohol) PHQ-2 Answer Date Recorded PHQ-2 Total Score (If total score is 3 or more points, staff should administer the PHQ-9) 0 08/31/2025 Comments No Sex and Gender Information Value Date Recorded Sex Assigned at Not on file Legal Sex Female 4:52 PM RUBBER ENGRAVER Gender Identity Not on file Sexual Orientation Not on file documented as of this encounter Functional Status * In the past year, patient experienced: Question Answer Date of Assessment Author One or more falls in the las t year 0 08/31/2024 7:25 AM RUBBER ENGRAVER Jayla Ballard MA * BP Location Answer Date of Assessment Author Right arm 08/31/2025 7:32 AM RUBBER ENGRAVER Ambrocio Leigh MA * Alcohol Withdrawal BP Hierarchy Answer Date of Assessment Author 72 05/13/2023 2:17 PM CDT Rhonda Farrell MA * BP Location Answer Date of Assessment Author Right arm 08/31/2025 7:32 AM RUBBER ENGRAVER Ambrocio Leigh MA documented as of this encounter Plan of Treatment Not on file documented as of this encounter Procedures Procedure Name Priority Date/Time Associated Diagnosis Comments BREAST IMAGING MG DIAGNOSTIC OUTSIDE REFERENCE Routine 11/18/2007 12:00 AM RUBBER ENGRAVER documented in this encounter Results * Breast Imaging Diagnostic Outside Reference (11/18/2007 12:00 AM RUBBER ENGRAVER) Impressions [facility] - 12/16/2022 4:25 PM RUBBER ENGRAVER These images are for Reference purposes only and have not been reviewed by [facility] Radiology. There will be no report generated by a [facility] Radiologist. Narrative [facility] - 12/16/2022 4:25 PM RUBBER ENGRAVER EXAMINATION: Images For Reference Purposes Only us Nellie Mendoza CLERICAL METHODS ANALYST IMG MAMMO PROCEDURES Final Re sult [facility] documented in this encounter Visit Diagnoses Not on filedocumented in this encounter Care Teams Forest Law And Policy Professor Relationship Specialty Start Date End Date Brenda Hodges MD PCP - General 03/25/07 04/04/08 documented as of this encounter
--- OUTSIDE RECORDS SUMMARY | 2007-11-18 00:05 | XMS_ITS | Encounter Summary ---
Author Organization [facility] Healthcare Address [address] [place] [address] Care Team Providers Care Continuous Improvement Engineer Name Role Phone Brenda Hodges MD Primary Care Provider Reason for Visit * Diagnostic Imaging (Routine) - Closed Specialty Diagnoses / Procedures Referred By Contac t Referred To Contact Procedures Breast Imaging US Outside Reference Nellie Mendoza NP Phone: tel: fax: Referral ID Status Reason Start Date Expiration Date Visits Re quested Visits Authorized [id number] Closed 12/16/2022 01/15/2024 1 1 Encounter Details Date Type Department Care Team (Late st Contact Info) Description 11/18/2007 12:05 AM CLOTHING MANAGER Hospital Encounter [facility] [address] [place] [address] [phone] Social History Tobacco Use Types Packs/Day Years [...] on file Legal Sex Female 4:52 PM CLOTHING MANAGER Gender Identity Not on file Sexual Orientation Not on file documented as of this encounter Functional Status * In the past year, patient experienced: Question Answer Date of Assessment Author One or more falls in the las t year 0 08/31/2024 7:25 AM CLOTHING MANAGER Jayla Ballard MA * BP Location Answer Date of Assessment Author Right arm 08/31/2025 7:32 AM CLOTHING MANAGER Ambrocio Leigh MA * Alcohol Withdrawal BP Hierarchy Answer Date of Assessment Author 72 05/13/2023 2:17 PM CDT Rhonda Farrell MA * BP Location Answer Date of Assessment Author Right arm 08/31/2025 7:32 AM CLOTHING MANAGER Ambrocio Leigh MA documented as of this encounter Plan of Treatment Not on file documented as of this encounter Procedures Procedure Name Priority Date/Time Associated Diagnosis Comments BREAST IMAGING US OUTSIDE REFERENCE Routine 11/18/2007 12:05 AM CLOTHING MANAGER documented in this encounter Results * Breast Imaging US Outside Reference (11/18/2007 12:05 AM CLOTHING MANAGER) Impressions [facility] - 12/16/2022 4:25 PM CLOTHING MANAGER These images are for Reference purposes only and have not been reviewed by [facility] Radiology. There will be no report generated by a [facility] Radiologist. Narrative [facility] - 12/16/2022 4:25 PM CLOTHING MANAGER EXAMINATION: Images For Reference Purposes Only us Nellie Mendoza BOAT AND PLANT UTILITY SUPERVISOR IMG MAMMO PROCEDURES Final Re sult [facility] documented in this encounter Visit Diagnoses Not on filedocumented in this encounter Care Teams Continuous Improvement Engineer Relationship Specialty Start Date End Date Brenda Hodges MD PCP - General 03/25/07 04/04/08 documented as of this encounter
--- OUTSIDE RECORDS SUMMARY | 2007-12-14 | XMS_ITS | Encounter Summary ---
Author Organization [facility] Healthcare Address [address] [place] [address] Care Team Providers Care Crack Off Person Name Role Phone Brenda Hodges MD Primary Care Provider Reason for Visit * Diagnostic Imaging (Routine) - Closed Specialty Diagnoses / Procedures Referred By Contac t Referred To Contact Procedures Breast Imaging Screening Outside Reference Nellie Mendoza NP Phone: tel: fax: Referral ID Status Reason Start Date Expiration Date Visits Re quested Visits Authorized [id number] Closed 12/16/2022 01/15/2024 1 1 Encounter Details Date Type Department Care Team (Late st Contact Info) Description 12/14/2007 Hospital Encounter [facility]iology [facility] [address] [place] [phone] Social History Tobacco Use Types Packs/Day Years [...] on file Legal Sex Female 4:52 PM FREIGHT SEPARATOR Gender Identity Not on file Sexual Orientation Not on file documented as of this encounter Functional Status * In the past year, patient experienced: Question Answer Date of Assessment Author One or more falls in the las t year 0 08/31/2024 7:25 AM FREIGHT SEPARATOR Jayla Ballard MA * BP Location Answer Date of Assessment Author Right arm 08/31/2025 7:32 AM FREIGHT SEPARATOR Ambrocio Leigh MA * Alcohol Withdrawal BP Hierarchy Answer Date of Assessment Author 72 05/13/2023 2:17 PM CDT Rhonda Farrell MA * BP Location Answer Date of Assessment Author Right arm 08/31/2025 7:32 AM FREIGHT SEPARATOR Ambrocio Leigh MA documented as of this encounter Plan of Treatment Not on file documented as of this encounter Procedures Procedure Name Priority Date/Time Associated Diagnosis Comments BREAST IMAGING MG SCREENING OUTSIDE REFERENCE Schedule Routine, Read Routine (OP Routine) 12/14/2007 12:00 AM FREIGHT SEPARATOR documented in this encounter Results * Breast Imaging Screening Outside Reference (12/14/2007 12:00 AM FREIGHT SEPARATOR) Impressions [facility] - 12/16/2022 4:09 PM FREIGHT SEPARATOR These images are for Reference purposes only and have not been reviewed by [facility] Radiology. There will be no report generated by a [facility] Radiologist. Narrative [facility] - 12/16/2022 4:09 PM FREIGHT SEPARATOR EXAMINATION: Images For Reference Purposes Only us Nellie Mendoza BLOOD DONOR RECRUITER SUPERVISOR IMG MAMMO PROCEDURES Final Re sult [facility] documented in this encounter Visit Diagnoses Not on filedocumented in this encounter Care Teams Crack Off Person Relationship Specialty Start Date End Date Brenda Hodges MD PCP - General 03/25/07 04/04/08 documented as of this encounter
--- OUTSIDE RECORDS SUMMARY | 2010-03-03 23:00 | XMS_ITS | Encounter Summary ---
Author Organization [facility] Healthcare Address [address] [place] [address] Care Team Providers Care Laboratory Sampler Name Role Phone Brenda Hodges MD Primary Care Provider Reason for Visit * Diagnostic Imaging (Routine) - Closed Specialty Diagnoses / Procedures Referred By Contac t Referred To Contact Procedures Breast Imaging Screening Outside Reference Nellie Mendoza NP Phone: tel: fax: Referral ID Status Reason Start Date Expiration Date Visits Re quested Visits Authorized [id number] Closed 12/16/2022 01/15/2024 1 1 Encounter Details Date Type Department Care Team (Late st Contact Info) Description 03/04/2010 Hospital Encounter [facility] [address] [place] [phone] Social History Tobacco Use Types Packs/Day Years [...] on file Legal Sex Female 4:52 PM MARKETING CAMPAIGN ANALYST Gender Identity Not on file Sexual Orientation Not on file documented as of this encounter Functional Status * In the past year, patient experienced: Question Answer Date of Assessment Author One or more falls in the las t year 0 08/31/2024 7:25 AM MARKETING CAMPAIGN ANALYST Jayla Ballard MA * BP Location Answer Date of Assessment Author Right arm 08/31/2025 7:32 AM MARKETING CAMPAIGN ANALYST Ambrocio Leigh MA * Alcohol Withdrawal BP Hierarchy Answer Date of Assessment Author 72 05/13/2023 2:17 PM CDT Rhonda Farrell MA * BP Location Answer Date of Assessment Author Right arm 08/31/2025 7:32 AM MARKETING CAMPAIGN ANALYST Ambrocio Leigh MA documented as of this [...] CDT) Impressions [facility] - 12/16/2022 4:12 PM MARKETING CAMPAIGN ANALYST These images are for Reference purposes only and have not been reviewed by [facility] Radiology. There will be no report generated by a [facility] Radiologist. Narrative [facility] - 12/16/2022 4:12 PM MARKETING CAMPAIGN ANALYST EXAMINATION: Images For Reference Purposes Only us Nellie Mendoza LICENSING ANALYST IMG MAMMO PROCEDURES Final Re sult [facility] documented in this encounter Visit Diagnoses Not on filedocumented in this encounter Care Teams Laboratory Sampler Relationship Specialty Start Date End Date Brenda Hodges MD PCP - General 11/30/08 07/07/10 documented as of this encounter
--- OUTSIDE RECORDS SUMMARY | 2012-12-16 | XMS_ITS | Encounter Summary ---
Author Organization [facility] Healthcare Address [address] [place] [address] Care Team Providers Care Donor Technician Name Role Phone Brenda Hodges MD Primary Care Provider Reason for Visit * Diagnostic Imaging (Routine) - Closed Specialty Diagnoses / Procedures Referred By Contac t Referred To Contact Procedures Breast Imaging Screening Outside Reference Nellie Mendoza NP Phone: tel: fax: Referral ID Status Reason Start Date Expiration Date Visits Re quested Visits Authorized [id number] Closed 12/16/2022 01/15/2024 1 1 Encounter Details Date Type Department Care Team (Late st Contact Info) Description 12/16/2012 Hospital Encounter [facility] [address] [place] [phone] Social History Tobacco Use Types Packs/Day Years [...] on file Legal Sex Female 4:52 PM DIGITAL SALES REPRESENTATIVE Gender Identity Not on file Sexual Orientation Not on file documented as of this encounter Functional Status * In the past year, patient experienced: Question Answer Date of Assessment Author One or more falls in the las t year 0 08/31/2024 7:25 AM DIGITAL SALES REPRESENTATIVE Jayla Ballard MA * BP Location Answer Date of Assessment Author Right arm 08/31/2025 7:32 AM DIGITAL SALES REPRESENTATIVE Ambrocio Leigh MA * Alcohol Withdrawal BP Hierarchy Answer Date of Assessment Author 72 05/13/2023 2:17 PM CDT Rhonda Farrell MA * BP Location Answer Date of Assessment Author Right arm 08/31/2025 7:32 AM DIGITAL SALES REPRESENTATIVE Ambrocio Leigh MA documented as of this encounter Plan of Treatment Not on file documented as of this encounter Procedures Procedure Name Priority Date/Time Associated Diagnosis Comments BREAST IMAGING MG SCREENING OUTSIDE REFERENCE Schedule Routine, Read Routine (OP Routine) 12/16/2012 12:00 AM DIGITAL SALES REPRESENTATIVE documented in this encounter Results * Breast Imaging Screening Outside Reference (12/16/2012 12:00 AM DIGITAL SALES REPRESENTATIVE) Impressions [facility] - 12/16/2022 4:09 PM DIGITAL SALES REPRESENTATIVE These images are for Reference purposes only and have not been reviewed by [facility] Radiology. There will be no report generated by a [facility] Radiologist. Narrative RAD[facility] - 12/16/2022 4:09 PM DIGITAL SALES REPRESENTATIVE EXAMINATION: Images For Reference Purposes Only us Nellie Mendoza PAD ASSEMBLER IMG MAMMO PROCEDURES Final Re sult [facility] documented in this encounter Visit Diagnoses Not on filedocumented in this encounter Care Teams Donor Technician Relationship Specialty Start Date End Date Brenda Hodges MD PCP - General 07/16/11 06/01/16 documented as of this encounter
--- OUTSIDE RECORDS SUMMARY | 2016-06-04 23:00 | XMS_ITS | Encounter Summary ---
Author Organization [facility] Healthcare Address [address] [place] [address] Care Team Providers Care Director Of Student Affairs Name Role Phone Brenda Hodges MD Primary Care Provider Reason for Visit * Diagnostic Imaging (Routine) - Closed Specialty Diagnoses / Procedures Referred By Contac t Referred To Contact Procedures Breast Imaging Screening Outside Reference Nellie Mendoza NP Phone: tel: fax: Referral ID Status Reason Start Date Expiration Date Visits Re quested Visits Authorized [id number] Closed 12/16/2022 01/15/2024 1 1 Encounter Details Date Type Department Care Team (Late st Contact Info) Description 06/05/2016 Hospital Encounter [facility]) [address] [place] [id number] Social History Tobacco Use Types Packs/Day Years [...] on file Legal Sex Female 4:52 PM PROPERTY ASSISTANT Gender Identity Not on file Sexual Orientation Not on file documented as of this encounter Functional Status * In the past year, patient experienced: Question Answer Date of Assessment Author One or more falls in the las t year 0 08/31/2024 7:25 AM PROPERTY ASSISTANT Jayla Ballard MA * BP Location Answer Date of Assessment Author Right arm 08/31/2025 7:32 AM PROPERTY ASSISTANT Ambrocio Leigh MA * Alcohol Withdrawal BP Hierarchy Answer Date of Assessment Author 72 05/13/2023 2:17 PM CDT Rhonda Farrell MA * BP Location Answer Date of Assessment Author Right arm 08/31/2025 7:32 AM PROPERTY ASSISTANT Ambrocio Leigh MA documented as of this [...] CDT) Impressions [facility] - 12/16/2022 4:08 PM PROPERTY ASSISTANT These images are for Reference purposes only and have not been reviewed by [facility]. There will be no report generated by a [facility] Radiologist. Narrative [facility] - 12/16/2022 4:08 PM PROPERTY ASSISTANT EXAMINATION: Images For Reference Purposes Only us Nellie Mendoza GAS PLUMBING INSPECTOR IMG MAMMO PROCEDURES Final Re sult [facility] documented in this encounter Visit Diagnoses Not on filedocumented in this encounter Care Teams Director Of Student Affairs Relationship Specialty Start Date End Date Brenda Hodges MD PCP - General 06/02/16 01/15/17 documented as of this encounter
[2025-10-03 11:01] LABS: Hematocrit 41.1 % (37.0-47.0); Hemoglobin 13.0 g/dL (12.0-15.0); Immature Granulocyte Percent A 0.4 % (0-0.5); Lymphocytes Absolute Auto 3.17 K/mm3 (0.9-3.2); Mean Corpuscular HGB Conc 31.6 g/dl (32-36); Mean Corpuscular Hemoglobin 28.0 pg (26-34); Mean Corpuscular Volume 88.6 fl (80-100); Nucleated Red Blood Cells Absolute Auto 0.000 K/mm3 (0.0-0.012); Nucleated Red Blood Cells Perc 0.0 % (0.0-0.2); Platelet Count Result 236 k/mm3 (150-375); Red Blood Count 4.64 M/mm3 (4.2-5.4); White Blood Count 8.0 K/mm3 (4.5-10.0)
[2025-10-03 11:18] LABS: Albumin Level 4.1 g/dL (3.5-5.1); Estimated Glomerular Filt Rate > 60; Glucose 91 mg/dL (65-110)
--- OUTSIDE RECORDS SUMMARY | 2025-10-03 11:24 | XMS_ITS | Encounter Summary ---
Author Organization [facility] Address [address] [place] [address] Care Team Providers Care Ems Manager Name Role Phone Jefry Mak MD Primary Care Provider Encounter Details Date Type Department Care Team (Late st Contact Info) Description 06/24/2005 Outpatient [facility] Internal Medicine [address] [address] Jefry Mak MD [address] [place] [phone] Social History Tobacco Use Types Packs/Day Years Used Date Smoking Tobacco: Never Assessed Comments Unknown Sex and Gender Information Value Date Recorded Sex Assigned at Not on file Legal Sex Female 3:01 AM RESTAURANT MANAGEMENT INTERNSHIP Gender Identity Not on file Sexual Orientation [...] on filedocumented in this encounter Care Teams Ems Manager Relationship Specialty Start Date End Date Jefry Mak MD PCP - General 08/02/08 documented as of this encounter
--- OUTSIDE RECORDS SUMMARY | 2025-10-03 11:24 | XMS_ITS | Encounter Summary ---
Author Organization [facility] Address [address] [place] [address] Care Team Providers Care Final Block Press Operator Name Role Phone Jefry Mak MD Primary Care Provider Encounter Details Date Type Department Care Team (Late st Contact Info) Description 06/20/2005 Outpatient [facility] Internal Medicine [address] [address] Jefry Mak MD [address] [place] [phone] Social History Tobacco Use Types Packs/Day Years Used Date Smoking Tobacco: Never Assessed Comments Unknown Sex and Gender Information Value Date Recorded Sex Assigned at Not on file Legal Sex Female 3:01 AM TEA BAG PACKER Gender Identity Not on file Sexual Orientation [...] on filedocumented in this encounter Care Teams Final Block Press Operator Relationship Specialty Start Date End Date Jefry Mak MD PCP - General 08/02/08 documented as of this encounter
--- OUTSIDE RECORDS SUMMARY | 2025-10-03 11:24 | XMS_ITS | Encounter Summary ---
Author Organization [facility] Address [address] [place] [address] Care Team Providers Care Genetics Teacher Name Role Phone Jefry Mak MD Primary Care Provider Encounter Details Date Type Department Care Team (Late st Contact Info) Description 07/16/2005 Outpatient [facility] Internal Medicine [address] [address] Jefry Mak MD [address] [place] [phone] Social History Tobacco Use Types Packs/Day Years Used Date Smoking Tobacco: Never Assessed Comments Unknown Sex and Gender Information Value Date Recorded Sex Assigned at Not on file Legal Sex Female 3:01 AM MANAGER PSYCHIATRY Gender Identity Not on file Sexual Orientation [...] on filedocumented in this encounter Care Teams Genetics Teacher Relationship Specialty Start Date End Date Jefry Mak MD PCP - General 08/02/08 documented as of this encounter
--- OUTSIDE RECORDS SUMMARY | 2025-10-03 11:24 | XMS_ITS | Encounter Summary ---
Author Organization [facility] Address [address] [place] [address] Care Team Providers Care Religion Professor Name Role Phone Jefry Mak MD Primary Care Provider [phone] Encounter Details Date Type Department Care Team (Late st Contact Info) Description 01/27/2006 Outpatient [facility] Internal Medicine [address] [address] Jefry Mak MD [address] [place] [phone] Social History Tobacco Use Types Packs/Day Years Used Date Smoking Tobacco: Never Assessed Comments Unknown Sex and Gender Information Value Date Recorded Sex Assigned at Not on file Legal Sex Female 3:01 AM RESEARCH AND EVALUATION ANALYST Gender Identity Not on file Sexual [...] on filedocumented in this encounter Care Teams Religion Professor Relationship Specialty Start Date End Date Jefry Mak MD PCP - General 08/02/08 documented as of this encounter
--- OUTSIDE RECORDS SUMMARY | 2025-10-03 11:24 | XMS_ITS | Encounter Summary ---
Author Organization [facility] Address [address] [place] [address] Care Team Providers Care Marble Coper Name Role Phone Jefry Mak MD Primary Care Provider Encounter Details Date Type Department Care Team (Late st Contact Info) Description 01/22/2006 Orders Only [facility] Internal Medicine [address] [address] Jefry Mak MD [address] [place] [phone] Social History Tobacco Use Types Packs/Day Years Used Date Smoking Tobacco: Never Assessed Comments Unknown Sex and Gender Information Value Date Recorded Sex Assigned at Not on file Legal Sex Female 3:01 AM ENDOSCOPIC TECHNICIAN Gender Identity Not on file Sexual Orientation Not on file documented as of this encounter Plan of Treatment Not on file documented as of this encounter Visit Diagnoses Not on filedocumented in this encounter Care Teams Marble Coper Relationship Specialty Start Date End Date Jefry Mak MD PCP - General 08/02/08 documented as of this encounter
--- OUTSIDE RECORDS SUMMARY | 2025-10-03 11:24 | XMS_ITS | Encounter Summary ---
Author Organization [facility] Address [address] [place] [address] Care Team Providers Care Chemical Laboratory Assistant Name Role Phone Jefry Mak MD Primary Care Provider Encounter Details Date Type Department Care Team (Late st Contact Info) Description 01/27/2006 Orders Only [facility] Internal Medicine [address] [address] Jefry Mak MD [address] [place] [phone] Social History Tobacco Use Types Packs/Day Years Used Date Smoking Tobacco: Never Assessed Comments Unknown Sex and Gender Information Value Date Recorded Sex Assigned at Not on file Legal Sex Female 3:01 AM GRIZZLYMAN Gender Identity Not on file Sexual Orientation [...] on filedocumented in this encounter Care Teams Chemical Laboratory Assistant Relationship Specialty Start Date End Date Jefry Mak MD PCP - General 08/02/08 documented as of this encounter
--- OUTSIDE RECORDS SUMMARY | 2025-10-03 11:25 | XMS_ITS | Clinical Summary ---
Author Organization [facility] Address [address] [place] [address] Care Team Providers Care An/Syq 13 Nav/C2 Operator Name Role Phone Jefry Mak MD Primary Care Provider [phone] Allergies Active Allergy Reactions Criticality Noted Date [...] on file Legal Sex Female 3:01 AM SHIPPING TRACK SUPERVISOR Gender Identity Not on file Sexual [...] 08/19/2014, Additional history exists Insurance [employer] PPO [id number] Care Teams An/Syq 13 Nav/C2 Operator Relationship Specialty Start Date End Date Jefry Mak MD PCP - General 08/02/08
--- OUTSIDE RECORDS SUMMARY | 2025-10-03 11:25 | XMS_ITS | Encounter Summary ---
Author Organization [facility] Address [address] [place] [address] Care Team Providers Care Flamer After Lasting Name Role Phone Jefry Mak MD Primary Care Provider [phone] Encounter Details Date Type Department Care Team (Late st Contact Info) Description 11/07/2003 Outpatient [facility] Internal Medicine [address] [address] Riccardo Simon MD [address] [place] [phone] Social History Tobacco Use Types Packs/Day Years Used Date Smoking Tobacco: Never Assessed Comments Unknown Sex and Gender Information Value Date Recorded Sex Assigned at Not on file Legal Sex Female 3:01 AM OPTICAL GOODS DRILL OPERATOR Gender Identity Not on file Sexual Orientation Not on file documented as of this encounter Last Filed Vital Signs Vital Sign Reading Time Taken Comments Blood Pressure 102/70 11/07/2003 4:00 PM OPTICAL GOODS DRILL OPERATOR Pulse - - Temperature 36.2 C (97.1 F) 11/07/2003 4:00 PM OPTICAL GOODS DRILL OPERATOR Respiratory Rate - - Oxygen Saturation - - Inhaled Oxygen Concentration - - Weight 66.2 kg (146 lb) 11/07/2003 4:00 PM OPTICAL GOODS DRILL OPERATOR Height - - Body Mass Index - - documented in this encounter Plan of Treatment Not on file documented as of this encounter Visit Diagnoses Not on filedocumented in this encounter Care Teams Flamer After Lasting Relationship Specialty Start Date End Date Jefry Mak MD PCP - General 08/02/08 documented as of this encounter
--- OUTSIDE RECORDS SUMMARY | 2025-10-03 11:25 | XMS_ITS | Encounter Summary ---
Author Organization [facility] Address [address] [place] [address] Care Team Providers Care Cullet Washer Name Role Phone Jefry Mak MD Primary Care Provider Encounter Details Date Type Department Care Team (Late st Contact Info) Description 01/14/2007 Orders Only [facility] Internal Medicine [address] [address] Jefry Mak MD [address] [place] [phone] Social History Tobacco Use Types Packs/Day Years Used Date Smoking Tobacco: Never Assessed Comments Unknown Sex and Gender Information Value Date Recorded Sex Assigned at Not on file Legal Sex Female 3:01 AM CLAM GRADER Gender Identity Not on file Sexual Orientation [...] on filedocumented in this encounter Care Teams Cullet Washer Relationship Specialty Start Date End Date Jefry Mak MD PCP - General 08/02/08 documented as of this encounter
--- OUTSIDE RECORDS SUMMARY | 2025-10-03 11:25 | XMS_ITS | Encounter Summary ---
Author Organization [facility] Address [address] [place] [address] Care Team Providers Care Welder Fitter Helper Name Role Phone Jefry Mak MD Primary Care Provider Encounter Details Date Type Department Care Team (Late st Contact Info) Description 11/07/2004 Outpatient [facility] Internal Medicine [address] [address] Jefry Mak MD [address] [place] [phone] Social History Tobacco Use Types Packs/Day Years Used Date Smoking Tobacco: Never Assessed Comments Unknown Sex and Gender Information Value Date Recorded Sex Assigned at Not on file Legal Sex Female 3:01 AM PRE PRESS OPERATOR Gender Identity Not on file Sexual Orientation Not on file documented as of this encounter Last Filed Vital Signs Vital Sign Reading Time Taken Comments Blood Pressure 110/70 11/07/2004 3:15 PM PRE PRESS OPERATOR Pulse - - Temperature 36.7 C (98 F) 11/07/2004 3:15 PM PRE PRESS OPERATOR Respiratory Rate - - Oxygen Saturation - - Inhaled Oxygen Concentration - - Weight 77.1 kg (170 lb) 11/07/2004 3:15 PM PRE PRESS OPERATOR Height - - Body Mass Index - - documented in this encounter Plan of Treatment Not on file documented as of this encounter Visit Diagnoses Not on filedocumented in this encounter Care Teams Welder Fitter Helper Relationship Specialty Start Date End Date Jefry Mak MD PCP - General 08/02/08 documented as of this encounter
--- OUTSIDE RECORDS SUMMARY | 2025-10-03 11:25 | XMS_ITS | Encounter Summary ---
Author Organization [facility] Address [address] [place] [address] Care Team Providers Care Auto Painter Name Role Phone Jefry Mak MD Primary Care Provider Encounter Details Date Type Department Care Team (Late st Contact Info) Description 11/29/2007 Orders Only [facility] Internal Medicine [address] [address] Jefry Mak MD [address] [place] [phone] Social History Tobacco Use Types Packs/Day Years Used Date Smoking Tobacco: Never Assessed Comments Unknown Sex and Gender Information Value Date Recorded Sex Assigned at Not on file Legal Sex Female 3:01 AM COMMUNITY SERVICE MANAGER Gender Identity Not on file Sexual Orientation Not on file documented as of this encounter Progress Notes * Jefry Mak MD - 03/01/2008 12:13 PM CDT TIME:04:53 pm PATIENT`S HOME PHONE: PATIENT`S WORK PHONE: PATIENT`S INSURANCE: [place] [employer] [facility] WHO TOOK THE CALL: Caitlin Saenz R GENERAL INFORMATION PHARMACY NUMBER: [phone] SECTION 1: REQUESTED ACTION berta 11/29/07 at [...] on filedocumented in this encounter Care Teams Auto Painter Relationship Specialty Start Date End Date Jefry Mak MD PCP - General 08/02/08 documented as of this encounter
--- OUTSIDE RECORDS SUMMARY | 2025-10-03 11:25 | XMS_ITS | Encounter Summary ---
Author Organization [facility] Address [address] [place] [address] Care Team Providers Care Manager Of Housekeeping Name Role Phone Jefry Mak MD Primary Care Provider [phone] Encounter Details Date Type Department Care Team (Late st Contact Info) Description 05/12/[address] [facility] Internal Medicine [address] [address] Jefry Mak MD [address] [place] [phone] Social History Tobacco Use Types Packs/Day Years Used Date Smoking Tobacco: Never Assessed Comments Unknown Sex and Gender Information Value Date Recorded Sex Assigned at Not on file Legal Sex Female 3:01 AM SUPERVISOR RUBBER COVERING Gender Identity Not on file Sexual Orientation Not on file documented as of this encounter Plan of Treatment Not on file documented as of this encounter Visit Diagnoses Not on filedocumented in this encounter Care Teams Manager Of Housekeeping Relationship Specialty Start Date End Date Jefry Mak MD PCP - General 08/02/08 documented as of this encounter
--- OUTSIDE RECORDS SUMMARY | 2025-10-03 11:25 | XMS_ITS | Encounter Summary ---
Author Organization [facility] Address [address] [place] [address] Care Team Providers Care Mold Making Supervisor Name Role Phone Jefry Mak MD Primary Care Provider Encounter Details Date Type Department Care Team (Late st Contact Info) Description 10/13/2007 Orders Only [facility] Internal Medicine [address] [address] Jefry Mak MD [address] [place] [phone] Social History Tobacco Use Types Packs/Day Years Used Date Smoking Tobacco: Never Assessed Comments Unknown Sex and Gender Information Value Date Recorded Sex Assigned at Not on file Legal Sex Female 3:01 AM CHILD NUTRITION MANAGER Gender Identity Not on file Sexual Orientation Not on file documented as of this encounter Progress Notes * Jefry Mak MD - 03/02/2008 1:11 PM CDT TIME:12:24 pm PATIENT`S HOME PHONE: PATIENT`S WORK PHONE: PATIENT`S INSURANCE: [facility] WHO TOOK THE CALL: Henna Negron C GENERAL INFORMATION WHO CALLED: Pharmacy called.[phone] SECTION 1: REQUESTED ACTION baldev 10/13/07 at [...] on filedocumented in this encounter Care Teams Mold Making Supervisor Relationship Specialty Start Date End Date Jefry Mak MD PCP - General 08/02/08 documented as of this encounter
--- OUTSIDE RECORDS SUMMARY | 2025-10-03 11:25 | XMS_ITS | Encounter Summary ---
Author Organization [facility] Address [address] [place] [address] Care Team Providers Care Ornament Stitcher Name Role Phone Jefry Mak MD Primary Care Provider Encounter Details Date Type Department Care Team (Late st Contact Info) Description 11/12/2006 Outpatient [facility] Internal Medicine [address] [address] Jefry Mak MD [address] [place] [phone] Social History Tobacco Use Types Packs/Day Years Used Date Smoking Tobacco: Never Assessed Comments Unknown Sex and Gender Information Value Date Recorded Sex Assigned at Not on file Legal Sex Female 3:01 AM MENTAL HEALTH CASE MANAGER Gender Identity Not on file Sexual Orientation Not on file documented as of this encounter Plan of Treatment Not on file documented as of this encounter Visit Diagnoses Not on filedocumented in this encounter Care Teams Ornament Stitcher Relationship Specialty Start Date End Date Jefry Mak MD PCP - General 08/02/08 documented as of this encounter
--- OUTSIDE RECORDS SUMMARY | 2025-10-03 11:25 | XMS_ITS | Encounter Summary ---
Author Organization [facility] Address [address] [place] [address] Care Team Providers Care Environmental Permitting Specialist Name Role Phone Jefry Mak MD Primary Care Provider Encounter Details Date Type Department Care Team (Late st Contact Info) Description 07/22/2007 Orders Only [facility] Internal Medicine [address] [address] Jefry Mak MD [address] [place] [phone] Social History Tobacco Use Types Packs/Day Years Used Date Smoking Tobacco: Never Assessed Comments Unknown Sex and Gender Information Value Date Recorded Sex Assigned at Not on file Legal Sex Female 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
--- OUTSIDE RECORDS SUMMARY | 2025-10-03 11:25 | XMS_ITS | Encounter Summary ---
Author Organization [facility] Address [address] [place] [address] Care Team Providers Care Steamblaster Name Role Phone Jefry Mak MD Primary Care Provider [phone] Encounter Details Date Type Department Care Team (Late st Contact Info) Description 05/12/2005 Outpatient [facility] Internal Medicine [address] [address] Jefry Mak MD [address] [place] [phone] Social History Tobacco Use Types Packs/Day Years Used Date Smoking Tobacco: Never Assessed Comments Unknown Sex and Gender Information Value Date Recorded Sex Assigned at Not on file Legal Sex Female 3:01 AM CARD GRINDER HELPER Gender Identity Not on file Sexual Orientation [...] on filedocumented in this encounter Care Teams Steamblaster Relationship Specialty Start Date End Date Jefry Mak MD PCP - General 08/02/08 documented as of this encounter
--- OUTSIDE RECORDS SUMMARY | 2025-10-03 11:25 | XMS_ITS | Encounter Summary ---
Author Organization [facility] Address 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
--- OUTSIDE RECORDS SUMMARY | 2025-10-03 11:25 | XMS_ITS | Encounter Summary ---
Author Organization [facility] Address [address] [place] [address] Care Team Providers Care Dressmaker Garment Fitter Name Role Phone Jefry Mak MD Primary Care Provider [phone] Encounter Details Date Type Department Care Team (Late st Contact Info) Description 10/14/2006 Orders Only [facility] Internal Medicine [address] [address] Jefry Mak MD [address] [place] [phone] Social History Tobacco Use Types Packs/Day Years Used Date Smoking Tobacco: Never Assessed Comments Unknown Sex and Gender Information Value Date Recorded Sex Assigned at Not on file Legal Sex Female 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 PHARMACY NUMBER: [phone] SECTION 1: REQUESTED ACTION jaden 10/14/06 at 04:44 pm: MEDICATION REQUEST: MEDICATION REQUEST: Patient requests a refill. gen Rodrigueza 180 mg. od #30 LF 06/25/06 DOCTOR`S [...] on filedocumented in this encounter Care Teams Dressmaker Garment Fitter Relationship Specialty Start Date End Date Jefry Mak MD PCP - General 08/02/08 documented as of this encounter
--- OUTSIDE RECORDS SUMMARY | 2025-10-03 11:25 | XMS_ITS | Encounter Summary ---
Author Organization [facility] Address 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
--- OUTSIDE RECORDS SUMMARY | 2025-10-03 11:25 | XMS_ITS | Encounter Summary ---
Author Organization [facility] Address 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
--- OUTSIDE RECORDS SUMMARY | 2025-10-03 11:25 | XMS_ITS | Encounter Summary ---
Author Organization [facility] Address [address] [place] [address] Care Team Providers Care Collection Systems Technician Name Role Phone Jefry Mak MD Primary Care Provider [phone] Encounter Details Date Type Department Care Team (Late st Contact Info) Description 11/13/2006 Orders Only [facility] Internal Medicine [address] [address] Jefry Mak MD [address] [place] [phone] Social History Tobacco Use Types Packs/Day Years Used Date Smoking Tobacco: Never Assessed Comments Unknown Sex and Gender Information Value Date Recorded Sex Assigned at Not on file Legal Sex Female 3:01 AM PRODUCT MANAGEMENT INTERNSHIP Gender Identity Not on file Sexual Orientation Not on file documented as of this encounter Progress Notes * Jefry Mak MD - 03/14/2008 2:27 PM CDT TIME:11:41 am PATIENT`S HOME PHONE: PATIENT`S WORK PHONE: PATIENT`S INSURANCE: [facility] WHO TOOK THE CALL: La Ervin J documented in this encounter Plan of Treatment Not on file documented as of this encounter Visit Diagnoses Not on filedocumented in this encounter Care Teams Collection Systems Technician Relationship Specialty Start Date End Date Jefry Mak MD PCP - General 08/02/08 documented as of this encounter
--- OUTSIDE RECORDS SUMMARY | 2025-10-03 11:25 | XMS_ITS | Encounter Summary ---
Author Organization [facility] Address [address] [place] [address] Care Team Providers Care [employer] Humanities Teacher Name Role Phone Jefry Mak MD Primary Care Provider [phone] Encounter Details Date Type Department Care Team (Late st Contact Info) Description 11/12/2006 Outpatient [facility] Internal Medicine [address] [address] Jefry Mak MD [address] [place] [phone] Social History Tobacco Use Types Packs/Day Years Used Date Smoking Tobacco: Never Assessed Comments Unknown Sex and Gender Information Value Date Recorded Sex Assigned at Not on file 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
--- OUTSIDE RECORDS SUMMARY | 2025-10-03 11:25 | XMS_ITS | Encounter Summary ---
Author Organization [facility] Address 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
--- OUTSIDE RECORDS SUMMARY | 2025-10-03 11:25 | XMS_ITS | Clinical Summary ---
Author Organization [facility] Address [address] [place] [address] Care Team Providers Care Coke Burner Name Role Phone Jay Pitts MD Unavailable [phone] Nellie Mendoza NP Primary Care Provider [phone] Allergies Active Allergy Reactions Criticality Noted Date Comments Erythromycin Stomach upset Low Hydrocodone-Acetaminophen Nausea only,Stomach upset Low 01/28/2019 Medications fexofenadine (JESÚS) 180 mg tablet take 1 tablet by oral route every day 30 0 6 Active cholecalciferol (VITAMIN D3) 2,000 unit tablet Take 2 tablets by oral route every day 0 0 6 Active cyanocobalamin (vitamin B-12) 1,000 mcg tablet Take 2 tablets by oral route every day 0 0 6 Active ipratropium-albu terol (DUO-NEB) 0.5-2.5 mg/3 mL nebulizer solution USE 1 VIAL VIA NEBULATION ROUTE Q 4 H PRN FOR SHORTNESS OF BREATH 0 9 Active rOPINIRole (REQUIP) 0.25 mg tabletIndication s:Restless leg syndrome Take 1 to 2 tablets orally at night as needed. 180 tablet 3 9 Active inhalational spacing device (Aerochamber MV) spacer 1 Device every 4 (four) hours as needed (wheezing) 1 each 4 Active Additional Information Patient not taking.Reported on 08/31/2025 fluticasone propionate (FLONASE) 50 mcg/actuation nasal spray Administer 1 spray into affected nostril(s) daily Active Copaxone 40 mg/mL syringeIndicatio ns:relapsing form of multiple sclerosis Inject 1 mL (40 mg total) under the skin 3 (three) times a week 12 mL 5 5 Active celecoxib (CeleBREX) 200 mg capsule TAKE 1 CAPSULE BY MOUTH DAILY NEEDED FOR PAIN 5 Active montelukast (SINGULAIR) 10 mg tabletIndication s:Moderate persistent asthma without complication Take 1 tablet (10 mg total) by mouth nightly 90 tablet 3 5 Active fluticasone propion-salmeter oL (ADVAIR DISKUS) 250-50 mcg/dose diskus inhaler Inhale 1 puff 2 (two) times a day Rinse mouth with water after use. Do not swallow. 3 each 4 5 Active albuterol HFA (PROVENTIL HFA,VENTOLIN HFA,PROAIR HFA) 90 mcg/actuation inhaler Inhale 2 puffs every 6 (six) hours as needed for wheezing 1 each 5 5 08/31/20 26 Active estrogens, conjugated, (PREMARIN) vaginal cream Insert 0.5 g into the vagina daily for 14 days, THEN 0.5 g 3 (three) times a week. 30 g 5 5 10/14/20 25 Active Active Problems Problem Noted Date Diagnosed Date Acute pain of left knee 08/31/2025 Postmenopausal atrophic vaginitis 08/31/2025 Assessment & Plan (08/31/2025 8:22 AM CORPORATE DEVELOPMENT INTERN): Class 1 obesity due to exces s calories with serious comorbidity and body mass index (BMI) of 31.0 to 31.9 in adult 08/04/2022 Assessment & Plan (08/31/2025 8:22 AM CORPORATE DEVELOPMENT INTERN): Assessment & Plan (08/04/2022 8:02 PM CDT): BMI Follow-up includes: exercise counseling. Hand arthritis 08/04/2022 Assessment & Plan (08/04/2022 8:04 PM CDT): Wants to try cbd cream first. I also discussed diclofenac cream otc. Gave printed rx for PUSH splint. Will keep oral anti-inflammatories last if needed History of COVID-19 02/07/2021 Assessment & Plan (11/14/2023 9:57 AM CORPORATE DEVELOPMENT INTERN): August 2020. Cough, fever < 102 F, [...] positive Healthcare maintenance 10/26/2019 Assessment & Plan (08/31/2025 8:22 AM CORPORATE DEVELOPMENT INTERN): Assessment & Plan (08/31/2024 8:25 AM CORPORATE DEVELOPMENT INTERN): -Recommended: Healthy diet. Avoiding junk food/fast food. [...] not had a hysterectomy (does have a chair car attendant), -Periodic blood pressure monitoring, & bone-density testing [...] needed. Assessment & Plan (10/26/2019 8:11 AM CORPORATE DEVELOPMENT INTERN): -Recommended: Healthy diet. Avoiding junk food/fast food. [...] 03/25/2019 Assessment & Plan (11/14/2023 9:57 AM CORPORATE DEVELOPMENT INTERN): Ropinirole 0.25 mg qhs. Risks discussed. Assessment [...] discussed. Assessment & Plan (12/14/2019 1:04 PM CORPORATE DEVELOPMENT INTERN): Ropinirole 0.25 to 0.5 mg qhs. Risks discussed. Assessment & Plan (03/25/2019 9:27 AM CDT): Ropinirole 0.25 to 0.5 mg qhs. Risks discussed. Moderate persistent asthma without complication 01/28/2019 Assessment & Plan (08/31/2025 8:22 AM CORPORATE DEVELOPMENT INTERN): Orders: montelukast (SINGULAIR) 10 mg tablet; Take 1 tablet (10 mg total) by mouth nightly Assessment & Plan (08/31/2024 8:24 AM CORPORATE DEVELOPMENT INTERN): Insurance directed, change to advair HFA. Uses [...] prn. Assessment & Plan (10/26/2019 8:11 AM CORPORATE DEVELOPMENT INTERN): Continue advair, albuterol prn Vitamin B 12 deficiency 01/28/2019 Assessment & Plan (08/31/2024 8:25 AM CORPORATE DEVELOPMENT INTERN): Check B12. Encouraged to get labs done Assessment & Plan (08/04/2022 8:45 AM CDT): Pt is not sure if she was ever B12 deficient, thinks she may have been told to take it for brain health or energy. Will check B12 level today Multiple sclerosis 10/26/2013 Assessment & Plan (08/31/2025 8:22 AM CORPORATE DEVELOPMENT INTERN): Assessment & Plan (08/31/2024 8:26 AM CORPORATE DEVELOPMENT INTERN): Stable - managed by neurology. On capoxone. Assessment & Plan (11/14/2023 9:57 AM CORPORATE DEVELOPMENT INTERN): Minimal intracranial disease including a lesion adjacent [...] spinal cord with contrast to be completed [facility]. Ordered again. Assessment & Plan (06/12/2022 [...] and cervical spinal cord to be completed [facility]. Previously ordered. Assessment & Plan (08/14/2021 [...] 2021 Assessment & Plan (12/14/2019 1:04 PM CORPORATE DEVELOPMENT INTERN): Minimal intracranial disease including a lesion adjacent [...] 09/23/2013 Assessment & Plan (11/14/2023 9:57 AM CORPORATE DEVELOPMENT INTERN): S/p left frontal meningioma resection Oct 2013 [...] imaging Assessment & Plan (12/14/2019 1:03 PM CORPORATE DEVELOPMENT INTERN): S/p left frontal meningioma resection Oct 2013 [...] Encounters Date Type Department Care Team Description 09/07/2025 Telephone [facility] [address] [place] [phone] Kristin Trevino [facility] 08/31/2025 7:30 AM CORPORATE DEVELOPMENT INTERN Office Visit [facility] Primary Care at [address] [address] Nellie Mendoza NP Visit for screening mammogram (Primary Dx); Moderate persistent asthma without complication; Healthcare maintenance; Class 1 obesity due to excess calories with serious comorbidity and body mass index (BMI) of 31.0 to 31.9 in adult; Multiple sclerosis; Postmenopausal atrophic vaginitis 07/26/2025 Telephone [facility] [address] [facility] [place] [phone] Morena Richmond RPh from Last 3 Months Immunizations Immunization Administration Dates Next Due Influenza, Quadrivalent, Spl it, Intramuscular 07/28/2016,07/19/2015 Influenza, Quadrivalent, Spl it, Preservative Free, Intramuscular 08/12/2023 Influenza, Trivalent, IM (MDV) 4,08/12/2013,07/19/2012,07/28,07/19/2010,07/28/2009 Influenza, Trivalent, Preser vative Free, Intramuscular 07/19/2025,08/03/2024,08/19/2014,09/07 Influenza, Unspecified 08/07/2024,2021,07/30/2021,07/19,07/19/2019 [employer] ([employer]) SARS-CoV-2 Vaccination 01/24/2021 Pneumococcal Conjugate Pcv20 08/31/2025 Pneumococcal Polysaccharide PPV23 11/12/2006, Td, Unspecified 03/03/2015 Td, adsorbed 11/15/2002 Tdap 08/31/2025,08/25/2008 [employer]OST[employer] Recombinant 12/05/2022,08/04/2022 Surgical History Surgery Date Site/Laterality Comments APPENDECTOMY April 22, 2002 Appendectomy BREAST BIOPSY 02/24/2023 Left BRAIN SURGERY November 10, 2013 Medical History Medical History Date Comments Asthma 1999 Asthma Restless legs syndrome Restless leg syndrome; Comments: TWM 06/02/2016 - Multiple sclerosis MS 2002 Family History Medical History Relation Name Comments Arthritis Brother 1 Jon No Known Problems Brother 2 COPD Father Marti Hypertension Father Marti Hypertension; Hypertension Mother Evangelina Hypertension; Arthritis Sister Angélica Relation Name Status Comments Brother 1 Jon Alive Brother 2 Alive Father Marti Alive Mother Evangelina Alive Sister Angélica Alive [...] on file Legal Sex Female 4:52 PM CORPORATE DEVELOPMENT INTERN Gender Identity Not on file Sexual Orientation Not on file Last Filed Vital Signs Vital Sign Reading Time Taken Comments Blood Pressure 118/76 08/31/2025 7:32 AM CORPORATE DEVELOPMENT INTERN Pulse 70 08/31/2025 7:32 AM CORPORATE DEVELOPMENT INTERN Temperature 36.4 C (97.6 F) 08/31/2025 7:32 AM CORPORATE DEVELOPMENT INTERN Respiratory Rate 18 08/31/2025 7:32 AM CORPORATE DEVELOPMENT INTERN Oxygen Saturation 96% 08/31/2025 7:32 AM CORPORATE DEVELOPMENT INTERN Inhaled Oxygen Concentration - - Weight 85 kg (187 lb 8 oz) 08/31/2025 7:32 AM CS T Height 163.8 cm (5' 4.5) 08/31/2025 7:32 AM CORPORATE DEVELOPMENT INTERN Body Mass Index 31.69 08/31/2025 7:32 AM CORPORATE DEVELOPMENT INTERN Plan of Treatment Health Maintenance Due Date Last Done Comments Hepatitis C Screening 1965 Hepatitis B Screening 1983 Cervical Cancer Screening 07/26/2021 07/26/2020 Breast Cancer Screening-Mammogram 02/06/2024 023, 10/18/2022 Covid-19 Vaccine (2024-11 6 season) 2025 01/24/2021 Depression Screening 08/31/2026 08/31/2025, 05/25/2025, 08/31/2024, Additional history exists Regular Well Visit/Exam 18-64 08/31/2026, 08/31/2024, 08/11/2023, Additional history exists Colon Cancer Screening-Colonoscopy 10/06/2032 10/06/2022, 10/03/2022, 07/25/2016 DTaP/Tdap/Td Vaccine (4 - Td or Tdap) 08/31/2035 08/31/2025, 03/03/2015, 08/25/2008, Additional history exists Colon Cancer Screening-CT Colonography Discontinued 10/06/2022, 10/03/2022, 07/25/2016 Colon Cancer Screening-DNA Stool Discontinued 10/06/2022, 10/03/2022, 07/25/2016 Colon Cancer Screening-FIT Discontinued 10/06, 10/03/2022, 07/25/2016 Colon Cancer Screening-Sigmoidoscopy Discontinued 10/06/2022, 10/03/2022, 07/25/2016 Zoster Vaccine Completed 12/05/2022, 08/04/2022 Influenza Vaccine Completed 07/19/2025, , 08/03/2024, Additional history exists Pneumococcal vaccine <65 Completed 025, 11/12/2006, 12/10/1998 Procedures Procedure Name Priority Date/Time Associated Diagnosis Comments DIAGNOSTIC MAMMOGRAM BILATERAL W [place] Schedule Routine, Read Routine (OP Routine) 02/05/2023 10:13 AM CDT Abnormal mammogram COLONOSCOPY Routine 10/06/2022 3:10 PM CORPORATE DEVELOPMENT INTERN PAP WITH REFLEX TO HIGH RISK HPV [...] has been scheduled to return to the [facility] for biopsy on 02/24/2023 [...] has been scheduled to return to the [facility] for biopsy on 02/24/2023 [...] 12:49 PM CDT [facility] Department of Pathology [address] [place] [id number] Final Report with Addendum Patient Name: EDITH CALLOWAY Address: [address] [place] [address] Gender: F : 1965 (Age: 54) Service: Laboratory Location: Lab [facility] #: [id number] Patient Type: [facility] Lab Taken: 07/26/2020 Received: 07/26/2020 Accessioned:: 07/27/2020 Reported: 07/30/2020 Physician(s): Kelly Benavides N.P. Diagnosis: Source of Specimen: Imaged Thinprep Pap Test plus HPV - Studio Hand Cytologic Material Specimen Adequacy: - Specimen satisfactory [...] Imaged Thinprep Pap Test plus HPV - Studio Hand Cytologic Material Clinical History: Last Menstrual Period: [...] determined by the Surgical Pathology Department at [facility] as part of an ongoing senior software [...] characteristics determined by the Surgical Pathology Department [facility]. It has not been cleared or approved by the U. S. Food and Drug Administration. Nellie Mendoza NP LAB CYTOLOGY ORDERABLES Final Result from Last 3 Months or Most Recently Relevant to Health Maintenance Insurance [facility] Member Subscriber Plan / Payer (Ef fective 2012-Present) Name:Edith Calloway Relation to Subscriber:Self Name:Edith Calloway Payer ID:[id number] (NAIC) Type:[employer] H[employer]/PPO Address: [address] [facility] Care Teams Coke Burner Relationship Specialty Start Date End Date Nellie Mendoza NP [address] [facility] [address] [place] [address] PCP - General Family Medicine 10/26/19 Jay Pitts MD [address] [facility] [address] [place] [address] Consulting Physician Neurology 01/28/19
--- OUTSIDE RECORDS SUMMARY | 2025-10-03 11:25 | XMS_ITS | Encounter Summary ---
Author Organization [facility] Address [address] [place] [address] Care Team Providers Care Metal Furniture Panel Coverer Name Role Phone Jefry Mak MD Primary Care Provider Encounter Details Date Type Department Care Team (Late st Contact Info) Description 10/26/2007 Orders Only [facility] Internal Medicine [address] [address] Jefry Mak MD [address] [place] [phone] Social History Tobacco Use Types Packs/Day Years Used Date Smoking Tobacco: Never Assessed Comments Unknown Sex and Gender Information Value Date Recorded Sex Assigned at Not on file Legal Sex Female 3:01 AM [employer]ER [employer]OE [employer] Gender Identity Not on file Sexual Orientation [...] interval for mammogram as recommended by the [employer] and ACOG, importance of regular [...] on filedocumented in this encounter Care Teams Metal Furniture Panel Coverer Relationship Specialty Start Date End Date Jefry Mak MD PCP - General 08/02/08 documented as of this encounter
--- OUTSIDE RECORDS SUMMARY | 2025-10-03 11:25 | XMS_ITS | Encounter Summary ---
Author Organization [facility] Address 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 LAB ORDERS: Order number: [id number] Test Ordered: INJ-PNEUMOVAX 16248 784.0-HEADACHE discussed topamax, reassess 783.1-ABNORMAL WEIGHT GAIN try med discussed risks of med at length MEDICATIONS: PHENTERMINE HCL ORAL CAPSULE CONVENTIONAL 37.5 MG, 1 Every Day, 30 Dispensed, 1 Fills, status: NEW PRESCRIPTION, 11/12/2006. LAB ORDERS: Order number: [id number] Test Ordered: CBC (INCLUDES DIFF/PLT) 6399 Order number: [id number] Test Ordered: TSH 899 Order number: [id number] Test Ordered: LIPID PANEL 7600 Order number: [id number] Test Ordered: COMPREHENSIVE METABOLIC PANEL W/ GLOMERULAR FILTRATION RATE, ESTIMATED (EGFR) [id number] RETURN VISIT : Patient instructed to return in 2 months. Electronically Signed by: Jefry Mak MD on October * Jefry Mak MD - 03/14/2008 1:33 PM CDT WHO TOOK THE CALL: Jefry Mak M TIME:05:56 pm see office note advise pt to have lab test [facility] 11/13/06 03:47 pm STAFF FOLLOW UP: . [...] on filedocumented in this encounter Care Teams Sandwich Board Carrier Relationship Specialty Start Date End Date Jefry Mak MD PCP - General 08/02/08 documented as of this encounter
[2025-10-03 11:33] LABS: Hemoglobin A1C 5.3 % (<5.7)
[2025-10-03 12:05] LABS: MRSA (PCR) NOT DETECTED (NOT DETECTE)
== END 2025-10-03 09:56 | disposition home or self-care (01) ==
LOC: ANHSURGERY 09:58
PROVIDERS: PCP Nurse Practitioner Family; Visit Provider Orthopaedic Surgery
DX: Z01.818 Encounter for other preprocedural examination (principal); M17.12 Unilateral primary osteoarthritis, left knee
CPT/HCPCS: 80307; 82040; 82565; 82947; 83036; 85025; 87641